=== PATIENT | male | born 1965 | race Caucasian/White ===

== ENCOUNTER 2016-10-04 14:15 | Emergency (ER) | payer MEDICAID ==
--- NOTE | 2016-10-04 14:27 | EDPHY ---
HPI/HX/ROS/PE/MDM Narrative: CHIEF COMPLAINT: Suicidal ideation. HPI: The patient is a 51-year-old male who comes from the [facility] with suicidal ideation. The patient was placed on an M1 hold. He has a history of Del Norte' s and states his pain is so severe he just can't take it any longer. Patient is noncompliant with Del Norte's medication. The patient last drank alcohol last night. REVIEW OF SYSTEMS: Aside from elements discussed in the HPI, a comprehensive 10-point review of systems was reviewed and is negative. PMH: Moose's disease. SOCIAL HISTORY: Homeless. Heavy alcohol use. PHYSICAL EXAM: General: Patient is alert, in no acute distress. ENT: Eyes are normal to inspection. ENT inspection normal. Neck: Normal inspection. Full range of motion. Respiratory: No respiratory distress. Breath sounds normal bilaterally. Cardiovascular: Regular rate and rhythm. Strong peripheral pulses. Abdomen: The abdomen is nontender to palpation. There are no peritoneal signs. There are normal bowel sounds. Back: Normal to inspection. No tenderness to palpation. Skin: Normal color. No rash. Warm and dry. Extremities: Normal appearance. Full range of motion. Neuro: Oriented x3. Abnormal resting movements consistent with Del Norte's. ( Jayden Ray) ED Course: 2205 care assumed by me from Dr. Roberson pending re-evaluation in the morning. [address] Ray pending evaluation and disposition. no issues during my care this patient overnight. (Aram Zee) The patient will be signed out to Dr. Roberson at shift change pending mental health evaluation. (Jayden Ray) 184: Patient has been seen evaluated by mental health. Patient stating that he suicidal due to pain and trouble with his chronic hunting movement. States he would like to sleep and have pain control. States that his pain is controlled and he can't sleep he may not be suicidal. Plan will be to re- evaluate in morning. (Lio Roberson) MDM: This patient has been evaluated by mental health who feels the patient is not actively suicidal, and that his feeling of sucidality were related to his chronic disease and homelessness. They are comfortable with hold being dropped if patient can be placed somewhere. I worked with our family independence case manager who spoke with Yamilka Brito. However, they have apparently already declined to accept this patient. I felt like a reasonable plan was to drop the M1 hold and discharge, but EPS now tells me that they don't feel comfortable dropping the hold given the patient's impulsiveness and history of Del Norte's. Business Executive suggested admission to the hospital for placement, however there is no acute medical issue and with no likely accepting facility, I do not think this is a good idea. I have canceled my order to drop the hold, and EPS will continue to work to try and find placement for this patient. Signed out to Dr. Joy at 1530. (Jayden Ray) Care assumed from Dr. aRy at 3:30 p.m. with plan for psychiatric evaluation for placement, currently on a mental health hold for suicidality. Temperature 36.7degrees at 9:30 a.m. today. Signed out to Dr. Roberson at 2200 with mental health hold still valid, psychiatric placement still pending. (Daniele Joy) 0700: Patient signed over to Dr. Maria at 7AM shift-Change. On M1 hold suicidal ideation. Underlying Moose's (Lio Roberson) I assumed care of the patient at 7 o'clock. Patient was medicated at 8:00 a.m. with hydrocodone and Ativan. Patient was evaluated again by mental health. Please see their notes. At 2 o' clock in the afternoon I was advised by mental health that to their attending does not feel the patient currently meets criteria for an M1 hold. Patient himself states that he just wants to have a referral to a neurologist. He is currently homeless. He denies ongoing suicidality. He reports that he wants to be discharged with pain medications and will make a follow-up appointment at Neurology. Case management has previously been involved. Due to the patient's prior history of violent behavior and alcohol intoxication, he is not able to be admitted to [place] [facility] nor to return back to [facility]. Patient was discharged. 72 hour mental health hold was vacated by Dr. Mcmahan. Referrals to Neurology as well as [facility] where provided. nurse case manager discussed the importance of follow-up again with the patient. (Eli Maria) - Data Points Laboratory Results: Laboratory Results 10/04/16 15:05 10/04/16 15:05 Medications Given: Discontinued Medications Hydrocodone Bitart/Acetaminophen ([place] 10/325) 1 tab PO EDNOW ONE Stop: 10/04/16 18:47 Last Admin: 10/04/16 19:38 Dose: 1 tab Hydrocodone Bitart/Acetaminophen ([place] 5/325) 1 tab PO EDNOW ONE Stop: 10/05/16 05:31 Last Admin: 10/05/16 05:33 Dose: 1 tab Hydrocodone Bitart/Acetaminophen ([place] 5/325) 1 tab PO EDNOW ONE Stop: 10/05/16 12:46 Last Admin: 10/05/16 12:51 Dose: 1 tab Hydrocodone Bitart/Acetaminophen ([place] 5/325) 1 tab PO EDNOW ONE Stop: 10/05/16 19:48 Last Admin: 10/05/16 19:51 Dose: 1 tab Hydrocodone Bitart/Acetaminophen ([place] 5/325) 1 tab PO EDNOW ONE Stop: 10/06/16 07:59 Last Admin: 10/06/16 08:04 Dose: 1 tab Lorazepam (Ativan) 1 mg PO ONCE ONE Stop: 10/04/16 16:47 Last Admin: 10/04/16 16:51 Dose: 1 mg Lorazepam (Ativan) 1 mg PO ONCE ONE Stop: 10/04/16 18:47 Last Admin: 10/04/16 19:02 Dose: 1 mg Lorazepam (Ativan) 1 mg PO EDNOW ONE Stop: 10/05/16 05:30 Last Admin: 10/05/16 05:32 Dose: 1 mg Lorazepam (Ativan) 1 mg PO EDNOW ONE Stop: 10/05/16 12:46 Last Admin: 10/05/16 12:50 Dose: 1 mg Lorazepam (Ativan) 1 mg PO EDNOW ONE Stop: 10/06/16 08:00 Last Admin: 10/06/16 08:04 Dose: 1 mg Trazodone HCl (Trazodone) 50 mg PO EDNOW ONE Stop: 10/04/16 23:57 Last Admin: 10/05/16 00:00 Dose: 50 mg Trazodone HCl (Trazodone) 50 mg PO EDNOW ONE Stop: 10/05/16 19:49 Last Admin: 10/05/16 19:51 Dose: 50 mg General Time Seen by Provider: 10/04/16 14:16 Initial Vital Signs: Initial Vital Signs Heart Rate 64 10/04/16 14:25 Respiratory Rate 18 10/04/16 14:25 Blood Pressure 167/102 H 10/04/16 14:25 O2 Sat (%) 94 10/04/16 14:25 O2 Delivery Mode Room Air Allergies/Adverse Reactions: Penicillins Allergy (Verified 10/04/16 14:33) Home Medications: Medication Instructions Recorded traZODone [traZODONE 50MG (*)] 25 - 50 mg PO HS PRN 10/05/16 Hydrocodone/APAP 5/325 [[place] 1 tab PO Q6H PRN #10 tab 10/06/16 5/325 (RX)] traZODone HCL [Trazodone HCl] 50 mg PO BID PRN #10 tablet 10/06/16 Departure - Departure Disposition: Home, Routine, Self-Care Clinical Impression: Huntingtons chorea, Suicidal ideation Condition: Fair Instructions: Suicide Prevention for Older Adults (ED), Tremors (ED) Additional Instructions: You have been given referral to Dr. Lopez at Neurology. Please call the neurology office on Saturday to make an appointment with Dr Lopez or with one of his partners. Please be sure they understand that this is an emergency department referral. You been given the number to [facility]. Please call them on Saturday to establish care with a primary care physician. Please let them know this is an emergency department follow-up visit. You given been given the number to [facility]. If you are feeling suicidal, depressed, anxious, or have other mental health concerns, you may follow up with them. You may return to the emergency department as needed. Referrals: Patient,NotPresent [Unknown] - As per Instructions Aram Lopez DO [Medical Doctor] - As per Instructions [facility],. [Clinic] - As per Instructions Prescriptions: Hydrocodone/APAP 5/325 [[place] 5/325 (RX)] 1 tab PO Q6H PRN #10 tab PRN Reason: Pain traZODone HCL [Trazodone HCl] 50 mg PO BID PRN #10 tablet PRN Reason: Anxiety Report Scribed for: Jayden Ray Report Scribed by: Lisa Arizmendi Date of Report: 10/04/16 Time of Report: 14:27 Physician Review and Approval Statement: Portions of this note were transcribed by a biomedical engineering director. I personally performed the history, physical exam, and medical decision-making; and confirmed the accuracy of the information in the transcribed note.
[2016-10-04 15:11] LABS: % IMMATURE GRANULYOCYTES 0.4 % (0.0-1.1); ABSOLUTE IMMATURE GRANULOCYTES 0.04 10^3/uL (0.00-0.10); ADD DIFF? NO; ADD MORPH? NO; ADD SCAN? NO; ATYPICAL LYMPHOCYTE FLAG 10 (0-99); FRAGMENT RBC FLAG 0 (0-99); HEMATOCRIT 43.8 % (40.0-51.0); HEMOGLOBIN 15.5 g/dL (13.7-17.5); LEFT SHIFT FLG 0 (0-99); LIPEMIA HEMOLYSIS FLAG 90 (0-99); MEAN CELL HEMOGLOBIN 31.1 pg (27.9-34.1); MEAN CELL HEMOGLOBIN CONCENTR. 35.4 g/dL (32.4-36.7); MEAN PLATELET VOLUME 8.9 fL (8.7-11.7); PLATELET CLUMPS FLAG 0 (0-99); PLATELET COUNT 285 10^3/uL (150-400); RED BLOOD CELL COUNT 4.98 10^6/uL (4.40-6.38); RED CELL DISTRIBUTION WIDTH 13.1 % (11.5-15.2)
[2016-10-04 16:21] LABS: ANION GAP 16 mEq/L (8-16); CALCIUM 9.7 mg/dL (8.5-10.4); CARBON DIOXIDE 19 mEq/l (22-31); CHLORIDE 105 mEq/L (97-110); CREATININE 0.7 mg/dL (0.7-1.3); GLOMERULAR FILTRATION RATE > 60; GLUCOSE 90 mg/dL (70-100); POTASSIUM 4.2 mEq/L (3.5-5.2); SODIUM 140 mEq/L (134-144)
[2016-10-04 16:39] LABS: ETHANOL SERUM < 10 mg/dL (0-10)
[2016-10-04] MEDS ORDERED: LORazepam 1 MG TAB PO ONE ×2 (16:46→18:46)
[2016-10-04] MEDS ORDERED: LORazepam 1 MG TAB ONE (16:57)
[2016-10-04] MEDS ORDERED: HYDROCODONE/APAP 10/325 TAB PO ONE (18:46)
[2016-10-04] MEDS ORDERED: traZODone 50 MG TAB PO ONE (23:56)
[2016-10-05] MEDS ORDERED: LORazepam 1 MG TAB PO ONE ×2 (05:29→12:45)
[2016-10-05] MEDS ORDERED: HYDROCODONE/APAP 5/325 TAB PO ONE ×3 (05:30→19:47)
[2016-10-05] MEDS ORDERED: traZODone 50 MG TAB PO ONE (19:48)
[2016-10-06 07:54] VITALS: RESP 16; TEMP 97.5
[2016-10-06] MEDS ORDERED: HYDROCODONE/APAP 5/325 TAB PO ONE (07:58)
[2016-10-06] MEDS ORDERED: LORazepam 1 MG TAB PO ONE (07:59)
[2016-10-06 14:59] VITALS: BP 148/87; PULSE 78; O2SAT 98
== END 2016-10-06 14:58 | disposition home or self-care (01) ==
LOC: EDUNIT# → UNDOADMIN 10-05 15:32
DX: R45.851 Suicidal ideations (principal); G10 Huntington's disease
CPT/HCPCS: 80305; G0480

== ENCOUNTER 2016-12-04 20:03 | Emergency (ER) | payer MEDICAID ==
[2016-12-04 20:42] LABS: % IMMATURE GRANULYOCYTES 0.3 % (0.0-1.1); ABSOLUTE IMMATURE GRANULOCYTES 0.03 10^3/uL (0.00-0.10); ADD DIFF? NO; ADD MORPH? NO; ADD SCAN? NO; ATYPICAL LYMPHOCYTE FLAG 0 (0-99); FRAGMENT RBC FLAG 0 (0-99); HEMATOCRIT 47.6 % (40.0-51.0); HEMOGLOBIN 16.7 g/dL (13.7-17.5); LEFT SHIFT FLG 0 (0-99); LIPEMIA HEMOLYSIS FLAG 90 (0-99); MEAN CELL HEMOGLOBIN 32.2 pg (27.9-34.1); MEAN CELL HEMOGLOBIN CONCENTR. 35.1 g/dL (32.4-36.7); MEAN CELL VOLUME 91.7 fL (81.5-99.8); MEAN PLATELET VOLUME 9.6 fL (8.7-11.7); PLATELET CLUMPS FLAG 0 (0-99); PLATELET COUNT 285 10^3/uL (150-400); RED BLOOD CELL COUNT 5.19 10^6/uL (4.40-6.38); RED CELL DISTRIBUTION WIDTH 12.5 % (11.5-15.2)
[2016-12-04 20:44] LABS: ANION GAP 17 mEq/L (8-16); CALCIUM 9.6 mg/dL (8.5-10.4); CARBON DIOXIDE 19 mEq/l (22-31); CHLORIDE 107 mEq/L (97-110); CREATININE 0.9 mg/dL (0.7-1.3); GLOMERULAR FILTRATION RATE > 60; GLUCOSE 83 mg/dL (70-100); POTASSIUM 4.5 mEq/L (3.5-5.2); SODIUM 143 mEq/L (134-144)
[2016-12-04 20:55] LABS: ETHANOL SERUM 338 mg/dL (0-10)
--- NOTE | 2016-12-04 20:56 | EDPHY ---
H & P Time Seen by Provider: 12/04/16 20:32 HPI/ROS: CHIEF COMPLAINT: Depression, alcoholism HISTORY OF PRESENT ILLNESS: 51-year-old male presents to the emergency department feeling depressed and suicidal. Patient has a history of Towns' s chorea and was found today trying to jump in front of a bus in attempt to kill himself. Patient continues to feel suicidal. He states "next time I will jump in front of a train ". He drinks alcohol and admits to drinking half a pt of alcohol today. He denies any other substance abuse. Denies homicidal ideation. The patient states that his dad also had Towns's chorea and today is his 5 year anniversary of his . Currently has no physical complaints. He denies chest pain or difficulty breathing. Denies headache. REVIEW OF SYSTEMS: Constitutional: No fever, no chills. Eyes: No double or blurry vision. ENT: No sore throat. Respiratory: No cough, no shortness of breath. Cardiac: No chest pain. Gastrointestinal: No abdominal pain, vomiting or diarrhea. Genitourinary: No dysuria. Musculoskeletal: No neck or back pain. Skin: No rashes. Neurological: No headache. Past Medical/Surgical History: Towns's chorea, Alcoholism Social History: Single Smoking Status: Current every day smoker Physical Exam: General Appearance: Alert, no distress. Smells strongly of alcohol. No visible signs of trauma to his head Eyes: Pupils equal and round. Extraocular motions are all intact. ENT: Mouth: Mucous membranes moist. Poor dentition noted. Respiratory: No wheezing, rhonchi, or rales, lungs are clear to auscultation. Cardiovascular: Regular rate and rhythm. Gastrointestinal: Abdomen is soft and nontender, no masses, no rebound or guarding, bowel sounds normal. Neurological: Alert and oriented x 3, cranial nerves II through XII grossly intact Skin: Warm and dry, no rashes. Musculoskeletal: Nontender to palpate along the cervical, thoracic or lumbar spine. Neck is supple. Extremities: Full range of motion and no peripheral edema. Psychiatric: Patient is oriented X 3, there is no agitation. Constitutional: Initial Vital Signs Temperature (C) 36.6 C 12/04/16 20:09 Heart Rate 100 12/04/16 20:09 Respiratory Rate 18 12/04/16 20:09 Blood Pressure 159/80 H 12/04/16 20:09 O2 Sat (%) 92 12/04/16 20:09 O2 Delivery Mode Room Air Allergies/Adverse Reactions: Penicillins Allergy (Verified 10/04/16 14:33) Home Medications: Medication Instructions Recorded traZODone [traZODONE 50MG (*)] 25 - 50 mg PO HS PRN 10/05/16 Hydrocodone/APAP 5/325 [[place] 1 tab PO Q6H PRN #10 tab 10/06/16 5/325 (RX)] traZODone HCL [Trazodone HCl] 50 mg PO BID PRN #10 tablet 10/06/16 Medical Decision Making ED Course/Re-evaluation: The patient is on an M1 hold. He is intoxicated. When he is sober, he will be evaluated by mental health. Differential Diagnosis: Depression including functional and major depression, situational depression, medication side effect, drugs and alcohol abuse. Care Turn Over: Care will be turned over to Dr. Lio Roberson for disposition and plan. - Data Points Laboratory Results: Laboratory Results 12/04/16 20:20 12/04/16 20:20 12/04/16 12/04/16 20:20 20:20 WBC 9.44 10^3/uL 10^3/uL (3.80-9.50) RBC 5.19 10^6/uL 10^6/uL (4.40-6.38) Hgb 16.7 g/dL g/dL (13.7-17.5) Hct 47.6 % % (40.0-51.0) MCV 91.7 fL fL (81.5-99.8) MCH 32.2 pg pg (27.9-34.1) MCHC 35.1 g/dL g/dL (32.4-36.7) RDW 12.5 % % (11.5-15.2) Plt Count 285 10^3/uL 10^3/uL (150-400) MPV 9.6 fL fL (8.7-11.7) Neut % (Auto) 69.6 % % (39.3-74.2) Lymph % (Auto) 23.9 % % (15.0-45.0) [place] % (Auto) 5.4 % % (4.5-13.0) Eos % (Auto) 0.2 % L % (0.6-7.6) Baso % (Auto) 0.6 % % (0.3-1.7) Nucleat RBC Rel Count 0.0 % % (0.0-0.2) Absolute Neuts (auto) 6.56 10^3/uL H 10^3/uL (1.70-6.50) Absolute Lymphs (auto) 2.26 10^3/uL 10^3/uL (1.00-3.00) Absolute Monos (auto) 0.51 10^3/uL 10^3/uL (0.30-0.80) Absolute Eos (auto) 0.02 10^3/uL L 10^3/uL (0.03-0.40) Absolute Basos (auto) 0.06 10^3/uL 10^3/uL (0.02-0.10) Absolute Nucleated RBC 0.00 10^3/uL 10^3/uL (0-0.01) Immature Gran % 0.3 % % (0.0-1.1) Immature Gran # 0.03 10^3/uL 10^3/uL (0.00-0.10) Sodium 143 mEq/L mEq/L (134-144) Potassium 4.5 mEq/L mEq/L (3.5-5.2) Chloride 107 mEq/L mEq/L (97-110) Carbon Dioxide 19 mEq/l L mEq/l (22-31) Anion Gap 17 mEq/L H mEq/L (8-16) BUN 12 mg/dL mg/dL (7-23) Creatinine 0.9 mg/dL mg/dL (0.7-1.3) Estimated GFR > 60 Glucose 83 mg/dL mg/dL (70-100) Calcium 9.6 mg/dL mg/dL (8.5-10.4) Ethyl Alcohol 338 mg/dL H mg/dL (0-10) Departure - Departure Clinical Impression: Suicidal ideation Alcohol intoxication Qualifiers: Complication of substance-induced condition: uncomplicated Qualified Code(s): F10.920 - Alcohol use, unspecified with intoxication, uncomplicated Depression Qualifiers: Depression Type: unspecified Qualified Code(s): F32.9 - Major depressive disorder, single episode, unspecified
[2016-12-04] MEDS ORDERED: OLANZapine DISINTEGR 10 MG TAB ONE (22:54)
[2016-12-05] MEDS ORDERED: IBUPROFEN 600 MG TAB PO ONE ×2 (05:09→05:49)
[2016-12-05 16:24] VITALS: BP 135/109; PULSE 69; RESP 18; TEMP 98.2; O2SAT 95
[2016-12-05] MEDS ORDERED: fentaNYL 100 MCG/2 ML INJ IVP ONE (16:24)
[2016-12-05] MEDS ORDERED: ONDANSETRON 4 MG/2 ML VIAL IVP ONE (16:24)
== END 2016-12-05 17:59 ==
DX: R45.851 Suicidal ideations (principal); F10.920 Alcohol use, unspecified with intoxication, uncomplicated; F17.200 Nicotine dependence, unspecified, uncomplicated
CPT/HCPCS: 80305; G0480

== ENCOUNTER 2017-01-01 06:42 | Emergency (ER) | payer MEDICAID ==
[2017-01-01 06:48] VITALS: RESP 18
--- NOTE | 2017-01-01 07:42 | EDPHY ---
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 He presents today complaining of neck pain, bilateral arm and hand weakness, and burning sensation in his hands bilaterally. The burning sensation has been present for the for quite sometimes but is worse today. This morning he was riding the bus and had difficulty getting up off of the bench because he could not use his arms or hands to do so. The pain and burning that he is experiencing is similar to the symptoms that he had prior to his cervical surgery. He states that he has long-standing difficulty walking but that his walking seems to be slightly worse also. He has not fallen. He has not taken anything for pain. He has been seen in this emergency department in the past and has been referred for primary care and for neurologic care but has not arranged any of these appointments. He is homeless. REVIEW OF SYSTEMS: A ten point review of systems was performed and is negative with the exception of the items mentioned in the HPI. He is currently homeless. Both Yamilka Brito and [facility] have refused to admit him in the recent past. Past medical history: Jefferson's chorea Alcohol abuse Tobacco abuse, 1/2 pack per day Past surgical history: Cervical fusion Social history: He is homeless. He continues to smoke cigarettes and is a daily alcohol drinker. General Appearance: Alert. Vital signs reviewed. Blood pressure 150/90. Poor personal hygiene. Eyes: Pupils equal and round, no conjunctival injection, no discharge. Anicteric. ENT, Mouth: Mucous membranes are moist, no oropharyngeal erythema or edema. Neck: No lymphadenopathy, supple. Well-healed surgical scar in the midline posteriorly. No tenderness to palpation of the cervical spine in the midline. Respiratory: Lungs are clear to auscultation; no wheezes, rales, or rhonchi. Cardiovascular: Regular rate and rhythm; no murmur, rub, or gallop. Gastrointestinal: Abdomen is soft and nontender, no masses or organomegaly, bowel sounds normal. Skin: Warm and dry, no rashes on exposed skin, normal color. Back: Nontender to palpation over the thoracolumbar spine. Neurological: Alert and oriented. Choreiform movements of all 4 extremities while at rest. Upper extremity strength is symmetric and is 4+ over 5 with testing of major motor groups. Sensory exam of the upper extremities is normal although he complains of dysesthesia. Psychiatric: Normal affect. - Personal History Current Tetanus/Diphtheria Vaccine: Yes Current Tetanus Diphtheria and Acellular Pertussis (TDAP): Yes - Medical/Surgical History Hx Asthma: No Hx Chronic Respiratory Disease: No Hx Diabetes: No Hx Cardiac Disease: No Hx Renal Disease: No Hx Cirrhosis: No Hx Alcoholism: Yes Hx HIV/AIDS: No Hx Splenectomy or Spleen Trauma: No Other PMH: huntingtons soledad - Social History Smoking Status: Current every day smoker Constitutional: Initial Vital Signs Temperature (C) 36.8 C 01/01/17 06:45 Heart Rate 72 01/01/17 06:45 Respiratory Rate 18 01/01/17 06:45 Blood Pressure 150/90 H 01/01/17 06:45 O2 Sat (%) 96 01/01/17 06:45 O2 Delivery Mode Room Air Allergies/Adverse Reactions: Penicillins Allergy (Verified 12/05/16 10:31) Home Medications: Medication Instructions Recorded traZODone [traZODONE 50MG (*)] 25 - 50 mg PO HS PRN 10/05/16 traZODone HCL [Trazodone HCl] 50 mg PO BID PRN #10 tablet 10/06/16 Medical Decision Making ED Course/Re-evaluation: Patient with Moose's chorea who presents complaining of bilateral hand dysesthesia and worsening upper extremity weakness. He has a history of cervical fusion. A neck x-ray was obtained to assess his hardware, which appears intact. Do not suspect an acute spinal cord compression or radicular compression. I do not think that he has an acute change today. He tells me that he might be getting slightly worse. He has not pursued follow-up, either with his primary care providers [facility] or with a neurologist. I strongly encouraged him to do so. He was given Tylenol and ibuprofen in the emergency department with minimal relief. I do not feel that he meets needs further emergency department evaluation. Case management interviewed him and an appointment was made at the [facility]. In the past he has been resistant to any efforts to alter his homelessness. He is noted to be hypertensive during his stay in the emergency department. He is not compliant with medications that have been school prescribed in the past. He is encouraged to arrange care with his PCP. He is encouraged to have his blood pressure rechecked. Differential Diagnosis: I considered a differential diagnosis that includes but is not limited to musculoskeletal neck pain/cervical sprain, failure of hardware, spinal cord compression, cervical radiculopathy, central cord syndrome, sequelae of alcoholism . - Data Points Medications Given: Discontinued Medications Acetaminophen (Tylenol) 1,000 mg PO EDNOW ONE Stop: 01/01/17 09:16 Last Admin: 01/01/17 09:48 Dose: 1,000 mg Ibuprofen (Motrin) 600 mg PO EDNOW ONE Stop: 01/01/17 07:46 Last Admin: 01/01/17 08:10 Dose: 600 mg Departure - Departure Disposition: Home, Routine, Self-Care Clinical Impression: Neck pain Condition: Good Instructions: Neck Pain (ED) Additional Instructions: You have a follow-up appointment with [facility] at the [facility] at [address] ([phone]). Please call them if you need to reschedule the appointment. You are strongly encouraged to go though the [facility] screening for homeless resources and services. You have been provided information, including the location and times that the CE screenings are offered. We think you would greatly benefit from their ability to connect you with resources such as access to benefits, housing needs, and other case management services. I am referring you to Dr. Fraser, neurologist. Please arrange an appointment through his office. There might be a weeding time before you are able to see him, so this sooner you contact the office the better. I am also recommending that you follow up with primary care through [facility]. They have open office hours available for the homeless which means that you do not need to have an appointment at those times. Randi giving you a listing of those times. You should take Tylenol 650 mg every 6 hours for pain. You can also take an occasional ibuprofen--no more than 400 mg 3 times daily. Referrals: [facility] [Clinic] - As per Instructions [facility],. [Clinic] - As per Instructions Hiren Marcano DO [Doctor of Osteopathy] - As per Instructions
[2017-01-01] MEDS ORDERED: IBUPROFEN 600 MG TAB PO ONE (07:45)
[2017-01-01 08:15] VITALS: O2SAT 93
[2017-01-01] MEDS ORDERED: ACETAMINOPHEN 500 MG TAB PO ONE (09:15)
--- NOTE | 2017-01-01 11:16 | ASMTCMCOM ---
CM Note CM Note Notes: Spoke with patient about homelessness, his struggle with alcohol and having Bruni's. Patient states he moved back to [place] this past summer after his mother . He had recently been living in [place]. Patient states he has family in [place] but ""i'll never go back there." Pt has no friends or family in [place]. Patient refused to stay at the shelters ([facility] or [facility]) because "it's too crazy, I can't sleep." Patient reports he's been sleeping in a bus stop near [facility]. When asked if he would be willing to complete the Coordinated Entry process he said "maybe, but I am not staying at the shelters." Appointment made for patient at the [facility] for next 01/09/17 at 11am. Pt provided bus pass. Date Signed: 01/01/2017 11:15 AM Electronically Signed By:Adenike Campbell RN
[2017-01-01 11:20] VITALS: BP 142/92; PULSE 80; TEMP 98.1
--- NOTE | 2017-01-01 12:17 | ASDISCHSUM ---
Discharge Information Plan Status:Homeless/Penitentiary Medically Cleared to Leave: Discharge Date:01/01/2017 11:36 AM CM D/C Disposition:Streets (Homeless) ADT D/C Disposition:Home, Routine, Self-Care Projected Discharge Date:01/01/2017 11:36 AM Transportation at D/C:Bus Ticket Discharge Delay Reason: Follow-Up Date:01/01/2017 11:36 AM Discharge Slot: Final Diagnosis: Placement Information Patient Contact Information Contact Name:THERESA Relationship: Address:[address] [place] [address] City:[facility] Phone: State/Zip Code:[place] [address] Email: Financial Information Financial Class: Primary Plan Desc:MEDICAID HEALTH FIRST MATERIAL LOADER Primary Plan Number:[id number] Secondary Plan Desc: Secondary Plan Number: Assessment Information LACE LACE Acuity / Level of Care Answers: No. Emergency dept visits in Answers: 3 last 6 months Score: 3 Date Signed: 01/01/2017 11:00 AM Electronically Signed By:Adenike Campbell RN [facility] Progress Note CM Note CM Note Notes: Spoke with patient about homelessness, his struggle with alcohol and having Moose's. Patient states he moved back to [place] this past summer after his mother . He had recently been living in [place]. Patient states he has family in [place] but ""i'll never go back there." Pt has no friends or family in [place]. Patient refused to stay at the shelters ([facility] or [facility]) because "it's too crazy, I can't sleep." Patient reports he's been sleeping in a bus stop near [facility]. When asked if he would be willing to complete the Coordinated Entry process he said "maybe, but I am not staying at the shelters." Appointment made for patient at the [facility] for next 01/09/17 at 11am. Pt provided bus pass. Date Signed: 01/01/2017 11:15 AM Electronically Signed By:Adenike Campbell RN Intervention Information
== END 2017-01-01 11:36 | disposition home or self-care (01) ==
LOC: EDUNIT#
DX: M54.2 Cervicalgia (principal); F17.200 Nicotine dependence, unspecified, uncomplicated

== ENCOUNTER 2017-01-26 02:14 | Emergency (ER) | payer MEDICAID ==
--- NOTE | 2017-01-26 02:24 | EDPHY ---
H & P HPI/ROS: HPI CHIEF COMPLAINT: Bilateral foot pain and blisters chronic x3 weeks. HISTORY OF PRESENT ILLNESS: This patient is a 51-year-old male, homeless, alcoholic, smokes tobacco additionally has schizophrenia, he presents emergency room bilateral feet pain. Patient states that for the past 3 weeks he has been noticing increasing pain in his feet and blisters. He states the blisters on his bottom of feet have been there for approximately 3 weeks. He denies any fever. He denies any other complaints denies trauma. He decided come the emergency room by ambulance as he went to be evaluated for bilateral feet pain blisters. Present for 3 weeks. 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 Past Medical History: Schizophrenia, alcohol abuse, daily alcohol use, tobacco use Past Surgical History: No recent surgery Social History: Daily alcohol use, homeless. Family History: Noncontributory ROS REVIEW OF SYSTEMS: A comprehensive 10 point review of systems is otherwise negative aside from elements mentioned in the history of present illness. Exam Constitutional triage nursing summary reviewed, vital signs reviewed, awake/ alert. Eyes normal conjunctivae and sclera, EOMI, PERRLA. HENT normal inspection, atraumatic, moist mucus membranes, no epistaxis, neck supple/ no meningismus, no raccoon eyes. Respiratory clear to auscultation bilaterally, normal breath sounds, no respiratory distress, no wheezing. Cardiovascular rate normal, regular rhythm, no murmur, no edema, distal pulses normal. Gastrointestinal soft, non-tender, no rebound, no guarding, normal bowel sounds, no distension, no pulsatile mass. Genitourinary no CVA tenderness. Musculoskeletal no midline vertebral tenderness, full range of motion, no calf swelling, no tenderness of extremities, no meningismus, good pulses, neurovascularly intact. Skin bilateral lower extremity: Both feet: Poor hygiene. Dirt under nails. Both feet are dirty and caked in mud, there are multiple areas of intact blisters, mild erythema but no significant warmth. No crepitus. No significant pain with palpation. Appears to be chronic. Good distal pulses. Good cap refill. Neurologic awake, alert and oriented x 3, AAOx3, moves all 4 extremities equally, motor intact, sensory intact, CN II-XII intact, normal cerebellar, normal vision, normal speech. Psychiatric normal mood/affect. Heme/Lymph/Immune no lymphadenopathy. Differential Diagnosis: Includes but is not limited to in a particular order bilateral feet cellulitis, bilateral feet blistering, chronic wounds to his feet , frostbite chronic, friction blisters, gangrene, trench foot Medical Decision Making: Plan for this patient allow him to washing clean his feet here in the emergency room to get the dirt mud off them. I will not debriding the is blisters as they are intact and not causing any significant pain. There is mild erythema to both put place him on Keflex. Additionally I will refer him to wound care. He understands to take it easy on his feet. Use warm clean socks if possible. I do recommend that he does not keep putting his feet in his boots for long period time let them dry out an air out. There is no evidence of gas or crepitus on exam. He is not toxic- appearing. He has no fever. Source: Patient, EMS - Medical/Surgical History Hx Asthma: No Hx Chronic Respiratory Disease: No Hx Diabetes: No Hx Cardiac Disease: No Hx Renal Disease: No Hx Cirrhosis: No Hx Alcoholism: Yes Hx HIV/AIDS: No Hx Splenectomy or Spleen Trauma: No Other PMH: huntingtons soledad - Social History Smoking Status: Current every day smoker Allergies/Adverse Reactions: Penicillins Allergy (Verified 12/05/16 10:31) Home Medications: Medication Instructions Recorded traZODone [traZODONE 50MG (*)] 25 - 50 mg PO HS PRN 10/05/16 traZODone HCL [Trazodone HCl] 50 mg PO BID PRN #10 tablet 10/06/16 Cephalexin [Keflex] 500 mg PO Q6H #28 cap 01/26/17 Departure - Departure Disposition: Home, Routine, Self-Care Clinical Impression: Blister (nonthermal), right foot, initial encounter Friction blisters of sole of left foot Qualifiers: Encounter type: initial encounter Qualified Code(s): S90.822A - Blister ( nonthermal), left foot, initial encounter Condition: Good Instructions: Cellulitis (ED) Additional Instructions: 1. Make sure to keep her feet clean. 2. Use warm clean socks. 3. Take antibiotics as prescribed. 4. Follow-up with wound care. 5. Return to the emergency room if there is worsening symptoms questions or concerns. 6. Do not keep her feet in her boot for prolonged period of time this was causing the blisters. Referrals: NONE *PRIMARY CARE P,. [Primary Care Provider] - As per Instructions [facility] [Clinic] - As per Instructions Prescriptions: Cephalexin [Keflex] 500 mg PO Q6H #28 cap
[2017-01-26] MEDS ORDERED: CEPHALEXIN 500 MG CAP PO ONE (02:27)
[2017-01-26] MEDS ORDERED: CEPHALEXIN 500MG PREPACK#4 BTL TAKEHOME ONE (02:27)
[2017-01-26] MEDS ORDERED: ACETAMINOPHEN 500 MG TAB PO ONE (02:29)
[2017-01-26 02:36] VITALS: BP 154/74; PULSE 74; RESP 18; TEMP 97.9; O2SAT 96
== END 2017-01-26 03:13 | disposition home or self-care (01) ==
LOC: EDUNIT#
DX: R23.8 Other skin changes (principal); F17.200 Nicotine dependence, unspecified, uncomplicated

== ENCOUNTER 2017-02-09 03:16 | Emergency (ER) | payer MEDICAID ==
[2017-02-09 03:25] VITALS: RESP 16; TEMP 98.1
[2017-02-09] MEDS ORDERED: ONDANSETRON 4 MG/2 ML VIAL ONE (03:42)
--- NOTE | 2017-02-09 03:49 | CPEKG ---
Heart Rate: 52 RR Interval: 1154 P-R Interval: 164 QRSD Interval: 100 QT Interval: 432 QTC Interval: 402 P Long Eddy: 69 QRS Long Eddy: 72 T Wave Long Eddy: 61 EKG Severity - NORMAL ECG - EKG Impression: SINUS RHYTHM Electronically Signed By: Jessica Mcgarry 09-Feb-2017 06:00:53
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
[2017-02-09 05:38] VITALS: BP 133/83; PULSE 63; O2SAT 93
== END 2017-02-09 06:00 | disposition home or self-care (01) ==
LOC: EDUNIT#
DX: R07.9 Chest pain, unspecified (principal); G89.29 Other chronic pain; T69.9XXA Effect of reduced temperature, unspecified, initial encounter; F17.200 Nicotine dependence, unspecified, uncomplicated; I10 Essential (primary) hypertension; Z59.0 Homelessness; X31.XXXA Exposure to excessive natural cold, initial encounter
CPT/HCPCS: J2405

== ENCOUNTER 2017-04-11 02:42 | Emergency (ER) | payer MEDICAID ==
--- NOTE | 2017-04-11 05:17 | EDPHY ---
H & P Stated Complaint: generalized skin growth and irritation Source: Patient Exam Limitations: No limitations - Personal History Current Tetanus/Diphtheria Vaccine: Yes Current Tetanus Diphtheria and Acellular Pertussis (TDAP): Yes - Medical/Surgical History Hx Asthma: No Hx Chronic Respiratory Disease: No Hx Diabetes: No Hx Cardiac Disease: No Hx Renal Disease: No Hx Cirrhosis: No Hx Alcoholism: Yes Hx HIV/AIDS: No Hx Splenectomy or Spleen Trauma: No Other PMH: huntingtons soledad - Social History Smoking Status: Current every day smoker Time Seen by Provider: 04/11/17 02:45 HPI/ROS: HPI The patient presents with painful rash of his abdomen, elbows, legs which has been present for several years. He feels that is terribly uncomfortable and difficult to live with. He believes the rash is caused by parasites. He says he saw In [place] for this and was not diagnosed with psoriasis. He is not on any medication for it. He does not have any fevers or chills. He is homeless. REVIEW OF SYSTEMS Constitutional: No fever, no chills. Eyes: No discharge. ENT: No sore throat. Cardiovascular: No chest pain, no palpitations. Respiratory: No cough, no shortness of breath. Gastrointestinal: No abdominal pain, no vomiting. Genitourinary: No hematuria. Musculoskeletal: No back pain. Skin: No rashes. Neurological: No headache. PMHx: [place] Soc Hx: Homelessness, alcohol abuse PHYSICAL General Appearance: Alert, no distress Eyes: Pupils equal and round no pallor or injection ENT, Mouth: Mucous membranes moist Respiratory: There are no retractions, lungs are clear to auscultation Cardiovascular: Regular rate and rhythm Gastrointestinal: Abdomen is soft and non-tender, no masses, bowel sounds normal Neurological: A&O, moves all extremities Skin: Warm and dry, psoriatic plaques of his abdomen and upper extremities with no surrounding erythema, warmth, drainage Musculoskeletal: Neck is supple non tender Extremities: symmetrical, full range of motion Psychiatric: Patient is oriented X 3, there is no agitation (Riguzzi,Jessica) Constitutional: Initial Vital Signs Temperature (C) 36.7 C 04/11/17 03:00 Heart Rate 90 04/11/17 03:00 Respiratory Rate 18 04/11/17 03:00 Blood Pressure 140/71 H 04/11/17 03:00 O2 Sat (%) 94 04/11/17 03:00 O2 Delivery Mode Room Air Allergies/Adverse Reactions: Penicillins Allergy (Verified 02/09/17 03:26) Home Medications: Medication Instructions Recorded Cephalexin [Keflex] 500 mg PO Q6H #28 cap 01/26/17 Medical Decision Making Differential Diagnosis: This is a 52-year-old male with homelessness, apparent psoriatic skin disease, history of Moose's, prior suicidal ideation who presents brought in by ambulance because of his rash. This seems to be stable with no sign of superinfection. He says he is not taking any medication for it because he believes his rash is due to a parasite. He has not followed by a local yard jockey though was seen in [place] where he previously lived for the rash. Differential diagnosis includes assisted seeking, worsening psoriasis, less likely cellulitis. The patient was allowed to sleep in the emergency department for several hours. He continued to complain of the rash. He was given ibuprofen. He then became more agitated. He said he was going to jump in front of a train. He said he cannot stand this rash anymore and does not want to live. He is feeling very suicidal. I have reviewed his chart it seems that in November he was here for suicidal ideation and went to crisis stabilization unit. He said that this helped him previously. As I have placed him on an M1 hold as I do not feel he is safe for discharge at this time. At 7:00 a.m., the case will be signed out to the oncoming provider Dr. Crook pending psychiatric evaluation and labs. (Jessica Mcgarry) Other Provider: I assumed care of the patient at 7 o'clock in the morning pending psychiatric disposition. The patient will be turned over to Dr. Joy at 2pm pending psychiatric disposition. (Juan Alberto Crook) Care the patient is assumed at 1:30 p.m. With plan for psychiatric disposition, is medically cleared. 1446: Not currently suicidal, it is the recommendation of the psychiatric chief development officer and the search consultant psychiatrist Dr. Low to lift the mental health hold and discharge the patient. (Daniele Joy) - Data Points Laboratory Results: Laboratory Results 04/11/17 06:40 04/11/17 06:40 02/22/18 02/22/18 02/22/18 06:50 06:40 06:40 WBC 7.93 10^3/uL 10^3/uL (3.80-9.50) RBC 4.41 10^6/uL 10^6/uL (4.40-6.38) Hgb 14.2 g/dL g/dL (13.7-17.5) Hct 41.4 % % (40.0-51.0) MCV 93.9 fL fL (81.5-99.8) MCH 32.2 pg pg (27.9-34.1) MCHC 34.3 g/dL g/dL (32.4-36.7) RDW 13.7 % % (11.5-15.2) Plt Count 239 10^3/uL 10^3/uL (150-400) MPV 8.9 fL fL (8.7-11.7) Neut % (Auto) 73.0 % % (39.3-74.2) Lymph % (Auto) 11.7 % L % (15.0-45.0) Stanley % (Auto) 10.3 % % (4.5-13.0) Eos % (Auto) 3.5 % % (0.6-7.6) Baso % (Auto) 1.0 % % (0.3-1.7) Nucleat RBC Rel Count 0.0 % % (0.0-0.2) Absolute Neuts (auto) 5.78 10^3/uL 10^3/uL (1.70-6.50) Absolute Lymphs (auto) 0.93 10^3/uL L 10^3/uL (1.00-3.00) Absolute Monos (auto) 0.82 10^3/uL H 10^3/uL (0.30-0.80) Absolute Eos (auto) 0.28 10^3/uL 10^3/uL (0.03-0.40) Absolute Basos (auto) 0.08 10^3/uL 10^3/uL (0.02-0.10) Absolute Nucleated RBC 0.00 10^3/uL 10^3/uL (0-0.01) Immature Gran % 0.5 % % (0.0-1.1) Immature Gran # 0.04 10^3/uL 10^3/uL (0.00-0.10) Sodium 141 mEq/L mEq/L (135-145) Potassium 4.6 mEq/L mEq/L (3.5-5.2) Chloride 105 mEq/L mEq/L (97-110) Carbon Dioxide 25 mEq/l mEq/l (22-31) Anion Gap 11 mEq/L mEq/L (8-16) BUN 7 mg/dL mg/dL (7-23) Creatinine 0.6 mg/dL L mg/dL (0.7-1.3) Estimated GFR > 60 Glucose 99 mg/dL mg/dL (70-100) Calcium 9.3 mg/dL mg/dL (8.5-10.4) Total Bilirubin 0.5 mg/dL mg/dL (0.1-1.4) AST 203 IU/L H IU/L (17-59) ALT 136 IU/L H IU/L (21-72) Alkaline Phosphatase 133 IU/L H IU/L (38-126) Total Protein 7.5 g/dL g/dL (6.3-8.2) Albumin 4.1 g/dL g/dL (3.5-5.0) Urine Opiates Screen NEGATIVE (NEGATIVE) Urine Barbiturates NEGATIVE (NEGATIVE) Ur Phencyclidine Scrn NEGATIVE (NEGATIVE) Ur Amphetamine Screen NEGATIVE (NEGATIVE) U Benzodiazepines Scrn NEGATIVE (NEGATIVE) Urine Cocaine Screen NEGATIVE (NEGATIVE) U Marijuana (THC) Screen NEGATIVE (NEGATIVE) Ethyl Alcohol < 10 mg/dL mg/dL (0-10) Medications Given: Discontinued Medications Acetaminophen (Tylenol) 650 mg PO EDNOW ONE Stop: 04/11/17 09:06 Last Admin: 04/11/17 09:26 Dose: 650 mg Sodium Chloride (Ns) 1,000 mls @ 0 mls/hr IV ONCE ONE PRN Reason: Wide Open Stop: 04/11/17 06:55 Last Admin: 04/11/17 06:56 Dose: 1,000 mls Ibuprofen (Motrin) 400 mg PO EDNOW ONE Stop: 04/11/17 06:26 Last Admin: 04/11/17 06:53 Dose: Not Given Ibuprofen (Motrin) 600 mg PO EDNOW ONE Stop: 04/11/17 13:45 Last Admin: 04/11/17 13:46 Dose: 600 mg Ketorolac Tromethamine (Toradol) 15 mg IVP EDNOW ONE Stop: 04/11/17 06:55 Last Admin: 04/11/17 06:55 Dose: 15 mg Departure - Departure Disposition: Home, Routine, Self-Care Clinical Impression: Psoriasis, Severe major depression Condition: Good Instructions: Suicide Prevention for Adults (ED) Referrals: [facility],. [Clinic] - As per Instructions
[2017-04-11] MEDS ORDERED: IBUPROFEN 200 MG TAB PO ONE (06:25)
[2017-04-11 06:51] LABS: PLATELET COUNT 239 10^3/uL (150-400)
[2017-04-11] MEDS ORDERED: KETOROLAC 15 MG/1 ML SDV ONE (06:53)
[2017-04-11] MEDS ORDERED: KETOROLAC 15 MG/1 ML SDV IVP ONE (06:54)
[2017-04-11] MEDS ORDERED: NS 1,000 ML IV ONE (06:54)
[2017-04-11 08:52] VITALS: RESP 16
[2017-04-11] MEDS ORDERED: ACETAMINOPHEN 325 MG TAB PO ONE (09:05)
[2017-04-11] MEDS ORDERED: IBUPROFEN 600 MG TAB PO ONE ×2 (13:43→13:44)
[2017-04-11] MEDS ORDERED: HYDROCORTISONE 1% CREAM TP ONE (16:22)
[2017-04-11] MEDS ORDERED: HYDROCORTISONE 1% CREAM TP PRN (16:23)
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
[2017-04-11 16:54] VITALS: BP 156/90; PULSE 69; TEMP 96.8; O2SAT 92
[2017-04-11] MEDS ORDERED: HYDROCORTISONE 1% CREAM TP SCH (21:00)
== END 2017-04-11 16:53 | disposition home or self-care (01) ==
LOC: EDUNIT#
DX: L40.9 Psoriasis, unspecified (principal); F17.200 Nicotine dependence, unspecified, uncomplicated; F32.9 Major depressive disorder, single episode, unspecified
CPT/HCPCS: 80305; 96374; G0480; J1885

== ENCOUNTER 2017-05-17 18:28 | Emergency (ER) | payer MEDICAID ==
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
[2017-05-17] MEDS ORDERED: CHLORDIAZEPOXIDE 25MG PREPK#6 BTL TAKEHOME ONE (21:36)
[2017-05-17 21:44] VITALS: BP 121/81
== END 2017-05-17 21:46 | disposition home or self-care (01) ==
LOC: EDUNIT#
DX: F10.920 Alcohol use, unspecified with intoxication, uncomplicated (principal); F17.200 Nicotine dependence, unspecified, uncomplicated; W01.0XXA Fall on same level from slipping, tripping and stumbling without subsequent striking against object, initial encounter; Y92.410 Unspecified street and highway as the place of occurrence of the external cause; Y99.8 Other external cause status; Y93.89 Activity, other specified

== ENCOUNTER 2017-06-03 18:14 | Emergency (ER) | payer MEDICAID ==
[2017-06-03] MEDS ORDERED: NS 1,000 ML IV ONE (18:36)
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
[2017-06-03] MEDS ORDERED: IOPAMIDOL (ISOVUE-300) 100 ML BTL ONE (19:39)
[2017-06-04 02:16] VITALS: BP 143/74
== END 2017-06-04 02:15 | disposition home or self-care (01) ==
LOC: EDUNIT#
DX: F10.129 Alcohol abuse with intoxication, unspecified (principal); F17.200 Nicotine dependence, unspecified, uncomplicated; E86.9 Volume depletion, unspecified; Z59.0 Homelessness; Y90.8 Blood alcohol level of 240 mg/100 ml or more
CPT/HCPCS: G0480; Q9967

== ENCOUNTER 2017-06-04 03:20 | Inpatient (IN) | payer MEDICAID, OTHER ==
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
[2017-06-04] MEDS ORDERED: PERMETHRIN 5% 60 GM CREAM TP ONE (03:25)
[2017-06-04] MEDS ORDERED: IOPAMIDOL (ISOVUE-300) 100 ML BTL ONE (03:44)
[2017-06-04 04:12] LABS: PLATELET COUNT 274 10^3/uL (150-400)
[2017-06-04 04:21] LABS: INR 1.04 (0.83-1.16); PROTIME(PATIENT) 13.8 SEC (12.0-15.0)
[2017-06-04] MEDS ORDERED: HYDROmorphONE/DILAUDID 2 MG/ML INJ IVP ONE (04:54)
[2017-06-04] MEDS ORDERED: NS 1,000 ML IV ONE ×2 (04:57)
[2017-06-04] MEDS ORDERED: SKIN ADHESIVE (DERMABOND) 1 EACH TP ONE (05:12)
[2017-06-04] MEDS ORDERED: TDAP ADULT 0.5 ML INJ (BOOSTRIX) IM ONE (05:18)
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
[2017-06-04] MEDS ORDERED: ONDANSETRON 4 MG/2 ML VIAL IVP PRN (05:44)
[2017-06-04] MEDS ORDERED: IBUPROFEN 600 MG TAB PO PRN (05:44)
[2017-06-04] MEDS ORDERED: NALOXONE HCL 0.4 MG/ML INJ IVP PRN (05:44)
[2017-06-04] MEDS ORDERED: OXYCODONE/APAP 5/325 TAB PO PRN (05:49)
[2017-06-04] MEDS ORDERED: KETAMINE 500 MG in D5W 500 ML IV SCH (06:30)
[2017-06-04] MEDS ORDERED: LORazepam 1 MG TAB PO PRN (08:16)
[2017-06-04] MEDS ORDERED: OLANZapine 10 MG/2 ML VIAL IM ONE (08:30)
[2017-06-04] MEDS: LORazepam 2 MG/ML INJ IVP PRN ×6 (09:03→19:12)
[2017-06-04] MEDS: NEOMY SULF/BACITRAC ZN/POLY 30 GM OINTTUBE TP SCH ×2 (09:34→21:06)
[2017-06-04] MEDS: FAMOTIDINE 20 MG/NACL 50 ML IV SCH ×2 (09:34→22:39)
[2017-06-04] MEDS: ENOXAPARIN 40 MG/0.4 ML SYR SC SCH (09:35)
[2017-06-04] MEDS: THIAMINE HCL 500 MG in NS 100 ML IV SCH (10:19)
--- NOTE | 2017-06-04 10:46 | TRAUMAPNT ---
Trauma Tertiary Progress Note New Findings: None Assessment/Plan: 06/04/2017 PAD#0 Assessment: Patient has adamantly stated that he does not plan to stop alcohol. Not interactive enough for Psych eval Plan: Continue alcohol - 1 beer per meal adjust pain management restrain with roll belt Await until more interactive before Psych eval for suicidal ideology repeat Kwell as needed ( tx'd once in ER ) Follow up CXR in AM Subjective: Not interactive Objective: Vital Signs Temp Pulse Resp BP Pulse Ox 36.6 C 82 17 166/79 H 97 06/04/17 10:00 06/04/17 10:00 06/04/17 10:00 06/04/17 10:00 06/04/17 10:00 06/03/17 06/04/17 06/05/17 05:59 05:59 05:59 Intake Total 2000 Output Total 250 Balance 1750 PT 13.8 SEC (12.0-15.0) 06/04/17 04:00 INR 1.04 (0.83-1.16) 06/04/17 04:00 Physical Exam - Physical Exam General Appearance: no apparent distress EENT: other (occipital scalp laceration.) Neck: non-tender, full range of motion, supple Respiratory: chest non-tender, lungs clear, normal breath sounds Cardiac/Chest: regular rate, rhythm Abdomen: normal bowel sounds, non-tender, soft Male Genitalia: deferred Rectal: deferred Back: Normal inspection Skin: other (extensive psoriasis, left forehead abrasion) Neuro/Psych: other (sedated - non interactive)
[2017-06-04] MEDS: LIDOCAINE 4%/MENTHOL 1% PATCH TD SCH (11:08)
[2017-06-04] MEDS ORDERED: BEER 1 EACH EA PO SCH (11:30)
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
[2017-06-04] MEDS: ceFAZolin 2 GM/SWFI 2 GM/20 ML SYR IVP SCH ×2 (13:42→22:38)
[2017-06-04] MEDS ORDERED: ceFAZolin 2 GM in NS 50 ML IV SCH (14:00)
[2017-06-04] MEDS: ACETAMINOPHEN 500 MG TAB PO SCH ×2 (14:04→17:39)
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
--- NOTE | 2017-06-04 14:21 | ASMTLACE ---
ANDRIAE Length of stay for Answers: 3 days current admission Acuity / Level of Answers: Yes Care: Did the patient have an inpatient admission? Comorbidities - select Answers: Other Notes: Suicide Attempt-Head all that apply inj, rib fxs # of Emergency department Answers: 5-8 visits in the last 6 months Social determinants Answers: History of substance abuse (ETOH, street drugs, prescription drugs, etc.) Homelessness (street, detention) History of trauma (PTSD, child abuse, domestic violence, etc.) Mental health diagnosis (anxiety, depression, pers onality disorders, etc.) Lack of community resources and/or lack of social support (no pcp, lives alone, transportation, josi d) Score: 27 Date Signed: 06/04/2017 02:20 PM Electronically Signed By:Elyse Damon LCSW
[2017-06-04] MEDS: KETOROLAC 30 MG/1 ML SDV IVP PRN (15:42)
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
[2017-06-04] MEDS: CYCLOBENZAPRINE 10 MG TAB PO SCH ×2 (16:24→17:40)
[2017-06-04] MEDS: VODKA 50 ML BOTTLE PO PRN ×2 (16:29→19:12)
[2017-06-04] MEDS ORDERED: DEXMEDETOMIDINE HCL 400 MCG in NS 100 ML IV SCH (20:30)
[2017-06-04] MEDS: DEXMEDETOMIDINE IN 0.9 % NACL 100 ML IV SCH ×2 (21:03→23:20)
[2017-06-04] MEDS: PATCH REMOVAL 1 EA PATCH TD SCH (21:06)
[2017-06-05] MEDS: LORazepam 2 MG/ML INJ IVP PRN ×9 (01:32→23:37)
[2017-06-05] MEDS: ACETAMINOPHEN 500 MG TAB PO SCH ×3 (06:33→21:36)
[2017-06-05] MEDS: ceFAZolin 2 GM/SWFI 2 GM/20 ML SYR IVP SCH (06:35)
[2017-06-05] MEDS: CYCLOBENZAPRINE 10 MG TAB PO SCH ×3 (08:23→21:37)
[2017-06-05] MEDS: FAMOTIDINE 20 MG/NACL 50 ML IV SCH (08:24)
[2017-06-05] MEDS: LIDOCAINE 4%/MENTHOL 1% PATCH TD SCH (08:24)
[2017-06-05] MEDS: THIAMINE HCL 500 MG in NS 100 ML IV SCH (08:25)
[2017-06-05] MEDS: ENOXAPARIN 40 MG/0.4 ML SYR SC SCH (08:26)
[2017-06-05] MEDS: NEOMY SULF/BACITRAC ZN/POLY 30 GM OINTTUBE TP SCH ×2 (08:27→19:38)
[2017-06-05] MEDS: KETOROLAC 30 MG/1 ML SDV IVP PRN ×3 (09:24→21:37)
--- NOTE | 2017-06-05 16:05 | ASMTCMCOM ---
CM Note CM Note Notes: Spoke with Ofelia, insurance agents supervisor with [employer]. She states we can give patient small amounts of vodka if needed to prevent withdrawal and they will come to evaluate if patient is otherwise medically clear. They have given us an ETA of 16:00 for eval. Notified [facility] that we had questions about how to manage the ETOH issue and during the conversation we set up an eval time. Patient to get eval and then disposition today. Catherine Jermaine was unavailable to see patient today. CM will follow. Date Signed: 06/05/2017 04:04 PM Electronically Signed By:Renee Telles LCSW
--- NOTE | 2017-06-05 16:22 | ASMTCAGE ---
CAGE Do you feel you ought to Answers: No cut down on your drinking or drug use? Do people annoy you by Answers: No criticizing your drinking or drug use? Do you feel guilty about Answers: No your drinking or drug use? Do you drink or use drugs Answers: Yes first thing in the morning ([employer])? Date Signed: 06/05/2017 04:21 PM Electronically Signed By:Renee Telles LCSW
[2017-06-05] MEDS: VODKA 50 ML BOTTLE PO PRN ×3 (16:47→21:37)
[2017-06-05] MEDS ORDERED: VODKA 50 ML BOTTLE PO ONE (17:00)
[2017-06-05] MEDS: FAMOTIDINE 20 MG TAB PO SCH (19:38)
[2017-06-05] MEDS: PATCH REMOVAL 1 EA PATCH TD SCH (19:38)
--- NOTE | 2017-06-05 20:21 | TRAUMAPN ---
Trauma Progress Note Assessment/Plan: 06/04/2017 PAD#0 Assessment: Patient has adamantly stated that he does not plan to stop alcohol. Not interactive enough for Psych eval Plan: Continue alcohol - 1 beer per meal adjust pain management restrain with roll belt Await until more interactive before Psych eval for suicidal ideology repeat Kwell as needed ( tx'd once in ER ) Follow up CXR in AM 06/05/2017 PAD#2 Assessment: Still minimally communicative. His alcohol supplement has been changed to vodka. Still on M1 hold. Chest/ribs - SATS stable. CXR Stable Scalp wound stable Plan: Continue supportive care Subjective: not coherent Objective: Vital Signs Temp Pulse Resp BP Pulse Ox 37.0 C 88 14 133/70 H 91 L 06/05/17 19:50 06/05/17 19:50 06/05/17 19:50 06/05/17 19:50 06/05/17 19:50 06/04/17 06/05/17 06/06/17 05:59 05:59 05:59 Intake Total 3577 1560 Output Total 1000 900 Balance 2577 660 PT 13.8 SEC (12.0-15.0) 06/04/17 04:00 INR 1.04 (0.83-1.16) 06/04/17 04:00 Physical Exam - Physical Exam General Appearance: obtunded EENT: other (scalp wound- repair intact - no drainage) Neck: non-tender, full range of motion Respiratory: lungs clear, normal breath sounds, other (left chest is tender today) Cardiac/Chest: regular rate, rhythm Abdomen: non-tender, soft, distended, other (hypoactive bowel sounds) Male Genitalia: deferred Rectal: deferred Back: Normal inspection Skin: other (extensive psorasis ) Neuro/Psych: other (not communicative. Gets out of bed inspite of roll belt. Urinates on floor)
[2017-06-06] MEDS: DEXMEDETOMIDINE IN 0.9 % NACL 100 ML IV SCH ×5 (00:50→15:40)
[2017-06-06] MEDS: HALOPERIDOL LACT 5 MG/ML INJ IVP PRN (02:00)
[2017-06-06] MEDS ORDERED: LORazepam 2 MG/ML INJ IVP ONE ×2 (02:30→04:45)
[2017-06-06 06:02] LABS: PLATELET COUNT 170 10^3/uL (150-400)
[2017-06-06] MEDS: ACETAMINOPHEN 500 MG TAB PO SCH ×4 (06:27→21:17)
[2017-06-06] MEDS: LORazepam 2 MG/ML INJ IVP SCH ×3 (06:28→18:13)
[2017-06-06] MEDS: NEOMY SULF/BACITRAC ZN/POLY 30 GM OINTTUBE TP SCH ×2 (09:00→21:18)
[2017-06-06] MEDS: FAMOTIDINE 20 MG TAB PO SCH ×3 (09:00→21:17)
[2017-06-06] MEDS: CYCLOBENZAPRINE 10 MG TAB PO SCH ×3 (09:00→21:18)
[2017-06-06] MEDS: THIAMINE HCL 500 MG in NS 100 ML IV SCH (09:51)
[2017-06-06] MEDS: ENOXAPARIN 40 MG/0.4 ML SYR SC SCH (10:01)
[2017-06-06] MEDS: LIDOCAINE 4%/MENTHOL 1% PATCH TD SCH (10:05)
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
[2017-06-06] MEDS ORDERED: ALTEPLASE 2 MG VIAL IVP PRN (13:52)
[2017-06-06] MEDS: VODKA 50 ML BOTTLE PO PRN (16:07)
[2017-06-06] MEDS ORDERED: LIDOCAINE 1% 300 MG/30 ML SDV ONE (16:07)
[2017-06-06] MEDS: KETOROLAC 30 MG/1 ML SDV IVP PRN (16:18)
--- NOTE | 2017-06-06 19:43 | TRAUMAPN ---
Trauma Progress Note Assessment/Plan: 06/04/2017 PAD#0 Assessment: Patient has adamantly stated that he does not plan to stop alcohol. Not interactive enough for Psych eval Plan: Continue alcohol - 1 beer per meal adjust pain management restrain with roll belt Await until more interactive before Psych eval for suicidal ideology repeat Kwell as needed ( tx'd once in ER ) Follow up CXR in AM 06/05/2017 PAD#2 Assessment: Still minimally communicative. His alcohol supplement has been changed to vodka. Still on M1 hold. Chest/ribs - SATS stable. CXR Stable Scalp wound stable Plan: Continue supportive care 06/06/2017 PAD#3 Assessment: Patient quite rambunctious last night requiring large amount of sedative medications and his communicative skills remained marginal. A follow up CT this AM did not reveal any structural cause. Ammonia is slightly increased. This afternoon he is beginning to make limited sense in conversation. Rib fractures - No significant changes. Need to work on pulmonary toilet to prevent pneumonia. Scalp laceration - clean and dry Plaque psoriasis - no change Plan: F/u CXR F/u ammonia level Continue supportive care Work toward transfer leg pain - c/o thigh pain anteriorly - suspect related to contusions from point of impact. Subjective: I hurt every where Objective: Vital Signs Temp Pulse Resp BP Pulse Ox 36.1 C 56 L 14 111/61 100 06/06/17 16:00 06/06/17 18:00 06/06/17 18:00 06/06/17 18:00 06/06/17 16:00 Laboratory Results 06/06/17 05:13 06/06/17 05:13 06/05/17 06/06/17 06/07/17 05:59 05:59 05:59 Intake Total 3577 1719 708 Output Total 1000 1600 Balance 2577 119 708 PT 13.8 SEC (12.0-15.0) 06/04/17 04:00 INR 1.04 (0.83-1.16) 06/04/17 04:00 Physical Exam - Physical Exam General Appearance: moderate distress, other (Low level mental function) EENT: other (Abrasions on forehead and nose - stable) Neck: full range of motion, supple, normal inspection Respiratory: lungs clear, normal breath sounds, other (Left chest tenderness. Poor IS function) Cardiac/Chest: regular rate, rhythm Abdomen: non-tender, distended Male Genitalia: deferred Rectal: deferred Back: Normal inspection Skin: normal color, warm/dry, other (extensive plaque psoriasis) Neuro/Psych: normal mood/affect Time Spent w/Patient (minutes): 25
--- NOTE | 2017-06-06 20:11 | PDRADPN ---
Radiology Procedure Note Date of Procedure: 06/06/17 Radiologist: Talon Fuentes Anesthesia: Local (Specify) Pre-op Diagnosis: Suboptimal access for ICU meds/draws Post-op Diagnosis: same Indication: access Procedure: LUE DL PICC Finding(s): entered basilic vein. post cxr good cath position. ok to use Inf/Abcess present in the surg proc area at time of surgery?: No EBL: Minimal Complications: no
[2017-06-06] MEDS: PATCH REMOVAL 1 EA PATCH TD SCH (21:19)
[2017-06-07] MEDS: LORazepam 2 MG/ML INJ IVP SCH ×3 (00:20→11:49)
[2017-06-07] MEDS: KETOROLAC 30 MG/1 ML SDV IVP PRN ×4 (01:54→23:18)
[2017-06-07] MEDS: ACETAMINOPHEN 500 MG TAB PO SCH ×3 (05:36→22:19)
[2017-06-07] MEDS: THIAMINE HCL 100 MG TAB PO SCH (08:36)
[2017-06-07] MEDS: ENOXAPARIN 40 MG/0.4 ML SYR SC SCH (08:36)
[2017-06-07] MEDS: CYCLOBENZAPRINE 10 MG TAB PO SCH ×3 (08:36→22:19)
[2017-06-07] MEDS: FAMOTIDINE 20 MG TAB PO SCH ×2 (08:36→22:18)
[2017-06-07] MEDS: LIDOCAINE 4%/MENTHOL 1% PATCH TD SCH (08:36)
[2017-06-07] MEDS: NICOTINE 21 MG/24 HR PATCH TD PRN (08:41)
[2017-06-07] MEDS: VODKA 50 ML BOTTLE PO PRN (08:42)
--- NOTE | 2017-06-07 09:33 | TRAUMAPN ---
Trauma Progress Note - Problem/Surgery Performed (1) Liver nodule Assessment/Plan: incidental finding on CT/MRI recommended by radiology will obtain today as patient may not be reliable for outpatient follow up (2) Alcohol intoxication Assessment/Plan: chronic alcohol abuse/receiving vodka while in hospital to avoid withdrawal Qualifiers: Complication of substance-induced condition: with delirium Qualified Code(s ): F10.921 - Alcohol use, unspecified with intoxication delirium (3) Head injury Assessment/Plan: concussion without evidence of ICH on CT x 2 cerebral atrophy likely related to chronic alcohol abuse Qualifiers: Encounter type: initial encounter Qualified Code(s): S09.90XA - Unspecified injury of head, initial encounter (4) Occipital scalp laceration Qualifiers: Encounter type: initial encounter Qualified Code(s): S01.01XA - Laceration without foreign body of scalp, initial encounter (5) Rib fractures Assessment/Plan: uncomplicated with reasonable pain control Qualifiers: Encounter type: initial encounter Rib fracture type: multiple ribs Fracture type: closed Laterality: left Qualified Code(s): S22.42XA - Multiple fractures of ribs, left side, initial encounter for closed fracture Subjective: Headache/left chest pain tolerating regular diet Objective: Vital Signs Temp Pulse Resp BP Pulse Ox 36.4 C 82 13 119/83 H 95 06/07/17 08:09 06/07/17 08:09 06/07/17 08:09 06/07/17 08:09 06/07/17 08:09 Laboratory Results 06/06/17 05:13 06/06/17 05:13 06/06/17 06/07/17 06/08/17 05:59 05:59 05:59 Intake Total 1719 1408 Output Total 1600 850 Balance 119 558 PT 13.8 SEC (12.0-15.0) 06/04/17 04:00 INR 1.04 (0.83-1.16) 06/04/17 04:00 - C-Spine Clearance Cervical Spine Cleared: Yes Provider who Cleared Cervical Spine: Richardson Physical Exam - Physical Exam General Appearance: mild distress, other (chronically ill appearing) EENT: other (abrasion over bridge of nose and right forehead) Neck: non-tender, other (posterior midline incision) Respiratory: normal breath sounds, decreased breath sounds Cardiac/Chest: regular rate, rhythm Abdomen: non-tender, soft Male Genitalia: deferred Rectal: deferred Back: Normal inspection Skin: warm/dry, other (plaque psoriatic lesions knees/elbows) Neuro/Psych: other (RN reports unsteady/ataxic gait/he has weakness of the LUE that he reports to be unchanged after his neck fusion several years ago) Time Spent w/Patient (minutes): 15
--- NOTE | 2017-06-07 10:42 | SOAPPROG ---
Downtime Inpatient MD Late Entry SOAP Note: Discussed on multi-disciplinary rounds. Additional history of past suicide attempt and [place]'s Chorea noted. Cleared by [facility] for potential transfer to inpatient rehab vs. SNF. No surgica/trauma issues to prevent transfer Neurology consult was discussed and recommended, however, no neurologist is dean of admissions for consults today. Nori Richards MD, FACS
[2017-06-07] MEDS: NEOMY SULF/BACITRAC ZN/POLY 30 GM OINTTUBE TP SCH ×2 (14:38→22:18)
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
[2017-06-07] MEDS ORDERED: GADOBUTROL 10 ML VIAL IVP ONE (14:50)
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
[2017-06-07] MEDS: VODKA 50 ML BOTTLE PO SCH ×2 (15:54→22:19)
--- NOTE | 2017-06-07 17:10 | ASMTCMCOM ---
CM Note CM Note Notes: Patient is unable to do ADL's and is having difficulty walking. As a result, he cannot be placed in a psych unit. Patient needs SNF rehab to get strong enough to walk again. Referrals have been sent out to several facilities and we have expanded the search to the [place] area in the hopes of finding a facility who can take the patient. Patient did live in [facility] for over 1 year but left AMA. [facility] is trying to get the records from [facility]. They did complete their eval but feel he is more appropriate for a SNF rehab program at this time. Patient has been suicidal in the past and is an open client with [facility]. A PASRR will need to be completed as time ran out today. CM will follow. Date Signed: 06/07/2017 05:10 PM Electronically Signed By:Renee Telles LCSW
[2017-06-07] MEDS: PATCH REMOVAL 1 EA PATCH TD SCH (22:18)
[2017-06-08] MEDS: HALOPERIDOL LACT 5 MG/ML INJ IVP PRN (01:27)
[2017-06-08] MEDS: ACETAMINOPHEN 500 MG TAB PO SCH ×3 (05:44→21:28)
[2017-06-08] MEDS: THIAMINE HCL 100 MG TAB PO SCH (09:04)
[2017-06-08] MEDS: FAMOTIDINE 20 MG TAB PO SCH ×2 (09:04→20:07)
[2017-06-08] MEDS: CYCLOBENZAPRINE 10 MG TAB PO SCH ×3 (09:04→21:22)
[2017-06-08] MEDS: LIDOCAINE 4%/MENTHOL 1% PATCH TD SCH (09:05)
[2017-06-08] MEDS: ENOXAPARIN 40 MG/0.4 ML SYR SC SCH (09:05)
[2017-06-08] MEDS: VODKA 50 ML BOTTLE PO SCH ×3 (09:07→21:24)
[2017-06-08] MEDS: NEOMY SULF/BACITRAC ZN/POLY 30 GM OINTTUBE TP SCH ×2 (09:09→20:11)
[2017-06-08] MEDS ORDERED: LICE KILLING SHAMPOO 118 ML TP ONE (10:22)
--- NOTE | 2017-06-08 10:32 | TRAUMAPN ---
Trauma Progress Note Assessment/Plan: 06/04/2017 PAD#0 Assessment: Patient has adamantly stated that he does not plan to stop alcohol. Not interactive enough for Psych eval Plan: Continue alcohol - 1 beer per meal adjust pain management restrain with roll belt Await until more interactive before Psych eval for suicidal ideology repeat Kwell as needed ( tx'd once in ER ) Follow up CXR in AM 06/05/2017 PAD#2 Assessment: Still minimally communicative. His alcohol supplement has been changed to vodka. Still on M1 hold. Chest/ribs - SATS stable. CXR Stable Scalp wound stable Plan: Continue supportive care 06/06/2017 PAD#3 Assessment: Patient quite rambunctious last night requiring large amount of sedative medications and his communicative skills remained marginal. A follow up CT this AM did not reveal any structural cause. Ammonia is slightly increased. This afternoon he is beginning to make limited sense in conversation. Rib fractures - No significant changes. Need to work on pulmonary toilet to prevent pneumonia. Scalp laceration - clean and dry Plaque psoriasis - no change Plan: F/u CXR F/u ammonia level Continue supportive care Work toward transfer leg pain - c/o thigh pain anteriorly - suspect related to contusions from point of impact. pad#5 06/08/2017 Assessment: awake, alert, coherent. Notes left rib pain - controlled Plan: F/u lice treatment increase activity hope to discharge tomorrow Subjective: I'm feeling better Objective: Vital Signs Temp Pulse Resp BP Pulse Ox 37.6 C 72 18 129/78 H 93 06/08/17 08:00 06/08/17 08:00 06/08/17 08:00 06/08/17 08:00 06/08/17 08:00 Laboratory Results 06/07/17 09:50 06/06/17 05:13 06/07/17 06/08/17 06/09/17 05:59 05:59 05:59 Intake Total 1408 2250 Output Total 850 250 Balance 558 2000 PT 13.8 SEC (12.0-15.0) 06/04/17 04:00 INR 1.04 (0.83-1.16) 06/04/17 04:00 - C-Spine Clearance Cervical Spine Cleared: Yes Provider who Cleared Cervical Spine: Richardson Physical Exam - Physical Exam General Appearance: WD/WN, alert, mild distress Neck: full range of motion, supple Respiratory: lungs clear, normal breath sounds, other (left ribs tender) Cardiac/Chest: regular rate, rhythm Abdomen: normal bowel sounds, non-tender, soft Male Genitalia: deferred Rectal: deferred Back: Normal inspection Skin: normal color, warm/dry Extremities: normal range of motion, non-tender, other (not wearing SCDs - patient reminded of importance of SCDs) Neuro/Psych: no motor/sensory deficits, alert, normal mood/affect, oriented x 3
--- NOTE | 2017-06-08 11:34 | ASMTCMCOM ---
CM Note CM Note Notes: Inpatient Rehab denied admission. Plan for LTC placement with Medicaid. Still need ULTC 100 completed. Note: Yamilka Brito in [place] and Ambika Senior in [place] are Moose's disease experts. Note: It is not clear from the medical record that Pt. has had a psychiatric evaluation from [facility] or a Catherine Dean consult as of yet. CM to follow for d/c POC. Date Signed: 06/08/2017 11:34 AM Electronically Signed By:Adenike Harris LCSW
[2017-06-08] MEDS: KETOROLAC 30 MG/1 ML SDV IVP PRN ×2 (12:55→20:06)
[2017-06-08] MEDS: PATCH REMOVAL 1 EA PATCH TD SCH (20:11)
[2017-06-09] MEDS: ACETAMINOPHEN 500 MG TAB PO SCH ×3 (06:20→21:41)
[2017-06-09] MEDS: KETOROLAC 30 MG/1 ML SDV IVP PRN (06:20)
[2017-06-09] MEDS: VODKA 50 ML BOTTLE PO SCH ×3 (09:04→21:42)
[2017-06-09] MEDS: NICOTINE 21 MG/24 HR PATCH TD PRN (09:05)
[2017-06-09] MEDS: CYCLOBENZAPRINE 10 MG TAB PO SCH ×3 (09:06→21:41)
[2017-06-09] MEDS: THIAMINE HCL 100 MG TAB PO SCH (09:06)
[2017-06-09] MEDS: FAMOTIDINE 20 MG TAB PO SCH ×2 (09:06→21:41)
[2017-06-09] MEDS: ENOXAPARIN 40 MG/0.4 ML SYR SC SCH (09:07)
[2017-06-09] MEDS: LIDOCAINE 4%/MENTHOL 1% PATCH TD SCH (09:07)
[2017-06-09] MEDS: NEOMY SULF/BACITRAC ZN/POLY 30 GM OINTTUBE TP SCH ×2 (09:10→21:45)
--- NOTE | 2017-06-09 11:51 | TRAUMAPN ---
Trauma Progress Note Assessment/Plan: 06/04/2017 PAD#0 Assessment: Patient has adamantly stated that he does not plan to stop alcohol. Not interactive enough for Psych eval Plan: Continue alcohol - 1 beer per meal adjust pain management restrain with roll belt Await until more interactive before Psych eval for suicidal ideology repeat Kwell as needed ( tx'd once in ER ) Follow up CXR in AM 06/05/2017 PAD#2 Assessment: Still minimally communicative. His alcohol supplement has been changed to vodka. Still on M1 hold. Chest/ribs - SATS stable. CXR Stable Scalp wound stable Plan: Continue supportive care 06/06/2017 PAD#3 Assessment: Patient quite rambunctious last night requiring large amount of sedative medications and his communicative skills remained marginal. A follow up CT this AM did not reveal any structural cause. Ammonia is slightly increased. This afternoon he is beginning to make limited sense in conversation. Rib fractures - No significant changes. Need to work on pulmonary toilet to prevent pneumonia. Scalp laceration - clean and dry Plaque psoriasis - no change Plan: F/u CXR F/u ammonia level Continue supportive care Work toward transfer leg pain - c/o thigh pain anteriorly - suspect related to contusions from point of impact. pad#5 06/08/2017 Assessment: awake, alert, coherent. Notes left rib pain - controlled Plan: F/u lice treatment increase activity hope to discharge tomorrow PAD#6 Assessment: Awake alert and interactive ( marked improvement since admission!) Reports rib pain continues. Poor use of IS (~1200cc) Plan: Increase activity Stress need for IS Still working on placement Plan cxr for tomorrow Subjective: my ribs hurt Objective: Vital Signs Temp Pulse Resp BP Pulse Ox 36.8 C 64 16 123/66 H 94 06/09/17 07:21 06/09/17 07:21 06/09/17 07:21 06/09/17 07:21 06/09/17 07:21 Laboratory Results 06/07/17 09:50 06/06/17 05:13 06/08/17 06/09/17 06/10/17 05:59 05:59 05:59 Intake Total 2250 500 Output Total 250 Balance 2000 500 PT 13.8 SEC (12.0-15.0) 06/04/17 04:00 INR 1.04 (0.83-1.16) 06/04/17 04:00 - C-Spine Clearance Cervical Spine Cleared: Yes Provider who Cleared Cervical Spine: Richardson Physical Exam - Physical Exam General Appearance: alert, mild distress Neck: non-tender, full range of motion, supple Respiratory: lungs clear, normal breath sounds, other (C/o left rib pain) Cardiac/Chest: regular rate, rhythm Abdomen: normal bowel sounds, non-tender, soft Male Genitalia: deferred Rectal: deferred Back: Normal inspection Skin: normal color, warm/dry Extremities: normal range of motion, non-tender Neuro/Psych: no motor/sensory deficits, alert, normal mood/affect, oriented x 3
[2017-06-09] MEDS: IBUPROFEN 200 MG TAB PO PRN (11:55)
--- NOTE | 2017-06-09 14:55 | ASMTCMCOM ---
CM Note CM Note Notes: CM met with patient to discuss completing a LTC Medicaid referral. The patient shares he does not have any supports except for some nice people at [facility], they keep his mail. CM completed ULTC 100.2, the patient signed and shared he thinks he has had LTC Medicaid in the past when he stayed at [facility]. Patient states he does not have a PCP and states he has been to [facility] within the last 6 months. CM faxed referral, face sheet, H&P, Neuro consult, and H&P to [facility] - referral packet with fax confirmation placed in chart. OT/SP rec SNF, PT [facility]. M1 hold lifted per MD. D/C date TBD, [facility]IL available for any CM needs. D/C Plan: Pending LTC Medicaid assessment. Date Signed: 06/09/2017 02:54 PM Electronically Signed By:Oxana Matias
[2017-06-09] MEDS: PATCH REMOVAL 1 EA PATCH TD SCH (21:45)
[2017-06-10] MEDS: IBUPROFEN 200 MG TAB PO PRN (02:12)
[2017-06-10] MEDS: ACETAMINOPHEN 500 MG TAB PO SCH ×3 (05:19→21:35)
[2017-06-10] MEDS: FAMOTIDINE 20 MG TAB PO SCH ×2 (09:37→21:35)
[2017-06-10] MEDS: CYCLOBENZAPRINE 10 MG TAB PO SCH ×3 (09:37→21:35)
[2017-06-10] MEDS: THIAMINE HCL 100 MG TAB PO SCH (09:38)
[2017-06-10] MEDS: LIDOCAINE 4%/MENTHOL 1% PATCH TD SCH (09:38)
[2017-06-10] MEDS: ENOXAPARIN 40 MG/0.4 ML SYR SC SCH (09:39)
[2017-06-10] MEDS: NEOMY SULF/BACITRAC ZN/POLY 30 GM OINTTUBE TP SCH ×2 (09:39→21:36)
[2017-06-10] MEDS: VODKA 50 ML BOTTLE PO SCH ×3 (09:40→21:35)
--- NOTE | 2017-06-10 10:24 | ASMTCMCOM ---
CM Note CM Note Notes: Patient is already eligible for LTC Medicaid. Desiree confirmed this through her Medicaid records. A psych eval was completed by [facility] as stated in my note dated 06/07/17. Patient is not eligble for a psych unit as a result of being too weak to walk, which was also stated in the 06/07/17 note. We are in the process of locating a walker at PT's request. This will be helpful to provide patient some balance and suppport. Still seeking SNF placement if possible. CM will follow. Date Signed: 06/10/2017 10:23 AM Electronically Signed By:Renee Telles LCSW
--- NOTE | 2017-06-10 12:09 | PDIAF ---
- Diagnosis Diagnosis: Left rib fractures 3-9, Chronic alcoholism, Scalp laceration, H[place]ton's Code Status: Full Code - Medication Management Discharge Medications: Medications to Continue on Transfer Acetaminophen [Tylenol ES 500 mg (*)] 1,000 mg PO Q8 tab 06/10/17 [Last Taken Unknown] Cyclobenzaprine [Flexeril 10 MG (*)] 10 mg PO TID PRN #30 tab 06/10/17 [Last Taken Unknown] Famotidine [Pepcid 20 MG (*)] 20 mg PO BID #60 tab 06/10/17 [Last Taken Unknown] Ibuprofen [Motrin (*)] 200 mg PO Q4HRS PRN tab 06/10/17 [Last Taken Unknown] Lidocaine 4%/Menthol 1% [Icy Hot Lidocaine/Menthol 4%/1% Patch (*)] 1 patch TD DAILY #30 patch 06/10/17 [Last Taken Unknown] Neomy Sulf/Bacitrac Zn/Poly [Triple Antibiotic Oint tube (*)] 1 mando TP BID oint 06/10/17 [Last Taken Unknown] Patch Removal 1 ea TD DAILY21 patch 06/10/17 [Last Taken Unknown] Discharge Medications: Refer to the Discharge Home Medication list for PRN reason. - Orders Services needed: Registered Nurse, Physical Therapy, Occupational Therapy Isolation Type: None Diet Recommendation: no restrictions on diet (avoid constipating foods: bananas , rice, apple sauce, cheese) Diet Texture: Regular Texture Diet Additional Instructions: Movement Disorder followup if needed r/t concern for Chorea w/ [facility], Dept of neurology - who has a clinic in [place]. Avoid injury to left chest Use Incentive Spirometer 10x every hour that you are awake Remove scalp sutures on 06/13 - Follow Up Care Current Providers and Referrals: Brandon Schafer MD [Medical Doctor] - (Follow up as needed) NONE *PRIMARY CARE P,. [Primary Care Provider] - As per Instructions
--- NOTE | 2017-06-10 12:16 | TRAUMAPN ---
Trauma Progress Note Assessment/Plan: 06/04/2017 PAD#0 Assessment: Patient has adamantly stated that he does not plan to stop alcohol. Not interactive enough for Psych eval Plan: Continue alcohol - 1 beer per meal adjust pain management restrain with roll belt Await until more interactive before Psych eval for suicidal ideology repeat Kwell as needed ( tx'd once in ER ) Follow up CXR in AM 06/05/2017 PAD#2 Assessment: Still minimally communicative. His alcohol supplement has been changed to vodka. Still on M1 hold. Chest/ribs - SATS stable. CXR Stable Scalp wound stable Plan: Continue supportive care 06/06/2017 PAD#3 Assessment: Patient quite rambunctious last night requiring large amount of sedative medications and his communicative skills remained marginal. A follow up CT this AM did not reveal any structural cause. Ammonia is slightly increased. This afternoon he is beginning to make limited sense in conversation. Rib fractures - No significant changes. Need to work on pulmonary toilet to prevent pneumonia. Scalp laceration - clean and dry Plaque psoriasis - no change Plan: F/u CXR F/u ammonia level Continue supportive care Work toward transfer leg pain - c/o thigh pain anteriorly - suspect related to contusions from point of impact. pad#5 06/08/2017 Assessment: awake, alert, coherent. Notes left rib pain - controlled Plan: F/u lice treatment increase activity hope to discharge tomorrow PAD#6 Assessment: Awake alert and interactive ( marked improvement since admission!) Reports rib pain continues. Poor use of IS (~1200cc) Plan: Increase activity Stress need for IS Still working on placement Plan cxr for tomorrow PAD#7 06/10/2017 Assessment: Awake alert and interactive ( marked improvement since admission!) Reports rib pain continues. CXR improved - E to A changes diminishing Poor use of IS (~1200cc) continues Plan: Increase activity Stress need for IS again working on placement for discharge tomorrow Subjective: My ribs hurt Objective: Vital Signs Temp Pulse Resp BP Pulse Ox 36.7 C 74 16 148/100 H 97 06/10/17 07:17 06/10/17 07:17 06/10/17 07:17 06/10/17 07:17 06/10/17 07:17 Laboratory Results 06/07/17 09:50 06/06/17 05:13 06/09/17 06/10/17 06/11/17 05:59 05:59 05:59 Intake Total 500 Balance 500 PT 13.8 SEC (12.0-15.0) 06/04/17 04:00 INR 1.04 (0.83-1.16) 06/04/17 04:00 - C-Spine Clearance Cervical Spine Cleared: Yes Provider who Cleared Cervical Spine: [facility] Physical Exam - Physical Exam General Appearance: WD/WN, alert, mild distress Neck: non-tender, full range of motion, supple Respiratory: lungs clear, normal breath sounds, other (Left chest tender E to A chages continue but are diminished in left chest) Cardiac/Chest: regular rate, rhythm Skin: other (scalp incision still has minimal drainage)
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
[2017-06-10] MEDS: PATCH REMOVAL 1 EA PATCH TD SCH (21:35)
[2017-06-11] MEDS: IBUPROFEN 200 MG TAB PO PRN (02:13)
[2017-06-11] MEDS: ACETAMINOPHEN 500 MG TAB PO SCH ×3 (05:04→22:02)
[2017-06-11] MEDS ORDERED: LORazepam 2 MG/ML INJ IVP SCH (09:00)
[2017-06-11] MEDS: FAMOTIDINE 20 MG TAB PO SCH ×2 (09:40→20:05)
[2017-06-11] MEDS: VODKA 50 ML BOTTLE PO SCH ×3 (09:40→22:03)
[2017-06-11] MEDS: CYCLOBENZAPRINE 10 MG TAB PO SCH ×3 (09:40→22:02)
[2017-06-11] MEDS: THIAMINE HCL 100 MG TAB PO SCH (09:40)
[2017-06-11] MEDS: LIDOCAINE 4%/MENTHOL 1% PATCH TD SCH (09:41)
[2017-06-11] MEDS: ENOXAPARIN 40 MG/0.4 ML SYR SC SCH (09:41)
[2017-06-11] MEDS: NEOMY SULF/BACITRAC ZN/POLY 30 GM OINTTUBE TP SCH ×2 (09:42→20:05)
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
--- NOTE | 2017-06-11 16:19 | SOAPPROG ---
SOAP Progress Note Assessment/Plan: Assessment: afebrile/ some rib pains/ bs equal/ ambulatory no new problems/ scalp wound ok Plan:repeat psych eval / fu cxr 06/11/17 16:17 Objective: Vital Signs Temp Pulse Resp BP Pulse Ox 36.9 C 75 16 130/76 H 94 06/11/17 15:39 06/11/17 15:39 06/11/17 15:39 06/11/17 15:39 06/11/17 15:39 Laboratory Results 06/07/17 09:50 06/06/17 05:13 06/10/17 06/11/17 06/12/17 05:59 05:59 05:59 Intake Total 500 Output Total 300 Balance 200 PT 13.8 SEC (12.0-15.0) 06/04/17 04:00 INR 1.04 (0.83-1.16) 06/04/17 04:00 ICD10 Worksheet Patient Problems: Problems Problem Status Onset Alcohol intoxication Acute Body lice Acute Head injury Acute Liver nodule Acute Occipital scalp laceration Acute Psoriasis Acute Rib fractures Acute Suicide attempt Acute
[2017-06-11] MEDS: PATCH REMOVAL 1 EA PATCH TD SCH (20:06)
[2017-06-12] MEDS: ACETAMINOPHEN 500 MG TAB PO SCH ×2 (05:49→14:04)
[2017-06-12] MEDS: ENOXAPARIN 40 MG/0.4 ML SYR SC SCH (07:33)
[2017-06-12] MEDS: THIAMINE HCL 100 MG TAB PO SCH (07:33)
[2017-06-12] MEDS: FAMOTIDINE 20 MG TAB PO SCH (07:33)
[2017-06-12] MEDS: LIDOCAINE 4%/MENTHOL 1% PATCH TD SCH (07:33)
[2017-06-12] MEDS: CYCLOBENZAPRINE 10 MG TAB PO SCH ×2 (07:33→16:05)
[2017-06-12] MEDS: NEOMY SULF/BACITRAC ZN/POLY 30 GM OINTTUBE TP SCH (07:37)
[2017-06-12] MEDS: VODKA 50 ML BOTTLE PO SCH ×2 (08:02→14:51)
[2017-06-12 08:41] VITALS: BP 123/75
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
--- NOTE | 2017-06-12 17:44 | ASMTCMCOM ---
CM Note CM Note Notes: Today after consultation with CM Director and CM Online Services Manager, it was decided that Pt. would d/c. At Pt's request, Pt. d/c'ed to a [facility] and [facility] ([address] in [place]). Pt. has supportive people who work at a liquor store near there who have some of his belongings. Should Pt. want to go there odilia, the [facility] bed is reserved for him. While Concha the Director at [facility] is empathetic and open to collaborating and willing to work with Pt. on his housing needs, it is likely that without [id number] case management for Pt. he will not be able to comply with appointments at this time due to his Lefors's disease process and level cognitive functioning/processing. Pt. struggles to compete tasks before him, let alone plan for appointments. Pt. grateful for assistance today to look through his lice contaminated clothing and belongings, for new clothes, and a cab ride to see his supportive friends. Date Signed: 06/12/2017 05:43 PM Electronically Signed By:Adenike Harris LCSW
== END 2017-06-12 17:20 | disposition home or self-care (01) | DRG 135 ==
LOC: EDUNIT# → EEVIPCON 05:17 → F2N 05:57 → F3E 06-08 00:10
PROVIDERS: ADMIT Surgery; ATTEND Surgery
PROC: 0HQ0XZZ Repair Scalp Skin, External Approach (ICD-10-PCS; principal; 2017-06-04)
PROC: 02HV33Z Insertion of Infusion Device into Superior Vena Cava, Percutaneous Approach (ICD-10-PCS; 2017-06-06)
DX: S22.42XA Multiple fractures of ribs, left side, initial encounter for closed fracture (principal); S06.0X1A Concussion with loss of consciousness of 30 minutes or less, initial encounter; S01.01XA Laceration without foreign body of scalp, initial encounter; G10 Huntington's disease; F10.230 Alcohol dependence with withdrawal, uncomplicated; F10.220 Alcohol dependence with intoxication, uncomplicated; F17.210 Nicotine dependence, cigarettes, uncomplicated; B85.2 Pediculosis, unspecified; S70.10XA Contusion of unspecified thigh, initial encounter; V03.10XA Pedestrian on foot injured in collision with car, pick-up truck or van in traffic accident, initial encounter; Y92.410 Unspecified street and highway as the place of occurrence of the external cause; L40.9 Psoriasis, unspecified; R40.2413 Glasgow coma scale score 13-15, at hospital admission; R93.2 Abnormal findings on diagnostic imaging of liver and biliary tract; Z59.0 Homelessness; Z23 Encounter for immunization
CPT/HCPCS: 80305; 92507-GN; 92523-GN; 96374; 97112-GO; 97112-GP; 97116-GP; 97163-GP; 97166-GO; 97530-GO; 97530-GP; 97535-GO; A9585; C1751; G0480; G0515-GO; J0690; J1170; J1630; J1650; J1885; J2060; J2270; J3411; Q9967

== ENCOUNTER 2017-06-12 22:57 | Emergency (ER) | payer MEDICAID, OTHER ==
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
[2017-06-13] MEDS ORDERED: IBUPROFEN 600 MG TAB PO ONE (00:05)
[2017-06-13] MEDS ORDERED: LIDOCAINE 4%/MENTHOL 1% PATCH TD ONE (00:05)
[2017-06-13] MEDS ORDERED: FAMOTIDINE 20 MG TAB PO ONE (00:05)
[2017-06-13] MEDS ORDERED: ACETAMINOPHEN 500 MG TAB PO ONE (00:05)
[2017-06-13] MEDS ORDERED: CYCLOBENZAPRINE 10 MG TAB PO ONE (00:12)
[2017-06-13 00:40] VITALS: BP 141/88
[2017-06-13] MEDS ORDERED: PATCH REMOVAL 1 EA PATCH TD SCH (21:00)
== END 2017-06-13 01:07 | disposition home or self-care (01) ==
LOC: EDUNIT#
DX: S22.42XD Multiple fractures of ribs, left side, subsequent encounter for fracture with routine healing (principal); F17.200 Nicotine dependence, unspecified, uncomplicated; Z91.14 Patient's other noncompliance with medication regimen

== ENCOUNTER 2017-07-03 16:38 | Emergency (ER) | payer MEDICAID ==
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
[2017-07-03 17:19] VITALS: BP 116/71
== END 2017-07-03 18:35 | disposition home or self-care (01) ==
LOC: EDUNIT#
DX: M25.561 Pain in right knee (principal); F17.200 Nicotine dependence, unspecified, uncomplicated

== ENCOUNTER 2017-10-11 20:26 | Inpatient (IN) | payer MEDICAID, OTHER ==
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
[2017-10-11 20:53] LABS: PLATELET COUNT 208 10^3/uL (150-400)
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
--- NOTE | 2017-10-11 23:08 | ASMTTCLDSP ---
TLC Discharge Disposition Disposition Notes: Notes: In consultation with [facility] ED physician, ALISSON Braden and Yue Joyce MD and on-call psychiatrist, Zohra Hightower MD, both concurred that pt appears to meet 27-65 criteria requiring psychiatric hospitalization as pt appears to be at risk of harm to self due to a mental illness condition. Was patient given the Answers: Yes Inpatient Behavioral Health Prohibited Belongings List while in the ED? For inpatient Zohra Hightower MD admission, the following psychiatrist agreed to accept patient for admission to Behavioral Health ([facility]): Type of Hold: Answers: M1/72-hour Hold Date Signed: 10/11/2017 11:07 PM Electronically Signed By:Jayden Herrera
[2017-10-12] MEDS ORDERED: NICOTINE POLACRILEX 2 MG GUM B PRN (02:25)
[2017-10-12] MEDS ORDERED: MAG HYDROX/AL HYDROX/SIMETH 30 ML UDCUP PO PRN (02:26)
[2017-10-12] MEDS ORDERED: MAGNESIUM HYDROXIDE 30 ML UDCUP PO PRN (02:26)
[2017-10-12] MEDS ORDERED: PROMETHAZINE HCL 25 MG TAB PO PRN (02:29)
[2017-10-12] MEDS ORDERED: PROMETHAZINE HCL 25 MG SUPPR PR PRN (02:29)
[2017-10-12] MEDS ORDERED: chlordiazePOXIDE 25 MG CAP PO PRN (02:29)
[2017-10-12] MEDS ORDERED: THIAMINE HCL 100 MG TAB (ONCE) PO ONE (02:29)
[2017-10-12] MEDS ORDERED: LORazepam 1 MG TAB PO PRN (08:18)
[2017-10-12] MEDS ORDERED: FLUMAZENIL 0.5 MG/5 ML MDV IVP PRN (08:18)
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
[2017-10-12] MEDS: MULTIVITAMINS 1 EACH TAB PO SCH (08:52)
[2017-10-12] MEDS: FOLIC ACID 1 MG TAB PO SCH (08:52)
[2017-10-12] MEDS: IBUPROFEN 200 MG TAB PO PRN ×2 (08:57→16:34)
[2017-10-12] MEDS: NICOTINE 21 MG/24 HR PATCH TD PRN (08:57)
[2017-10-12] MEDS ORDERED: THIAMINE HCL 500 MG in NS 100 ML IV SCH (09:00)
[2017-10-12] MEDS ORDERED: THIAMINE HCL 100 MG TAB (DAILY X 3) PO SCH (09:00)
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
[2017-10-12] MEDS: THIAMINE HCL 100 MG TAB PO SCH (09:37)
--- NOTE | 2017-10-12 12:32 | ASMTCMCOM ---
CM Note CM Note Notes: CC was able to send referral to [facility] via [employer]. Client remains appropriate on unit while disheveled and unclean. Date Signed: 10/12/2017 12:32 PM Electronically Signed By:Danny Beckham
[2017-10-12] MEDS: LORazepam 0.5 MG TAB PO PRN ×2 (15:01→20:07)
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
[2017-10-13] MEDS: LORazepam 0.5 MG TAB PO PRN ×3 (06:23→18:36)
[2017-10-13] MEDS: NICOTINE 21 MG/24 HR PATCH TD PRN ×2 (06:45→09:18)
[2017-10-13] MEDS: FOLIC ACID 1 MG TAB PO SCH (09:08)
[2017-10-13] MEDS: MULTIVITAMINS 1 EACH TAB PO SCH (09:08)
[2017-10-13] MEDS: THIAMINE HCL 100 MG TAB PO SCH (09:08)
[2017-10-13] MEDS: IBUPROFEN 200 MG TAB PO PRN (12:50)
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
[2017-10-13] MEDS ORDERED: CYANO/VITAMIN B12 1000 MCG/ML VIAL IM ONE (17:07)
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
[2017-10-13] MEDS: ACETAMINOPHEN 325 MG TAB PO PRN (17:37)
[2017-10-14] MEDS: THIAMINE HCL 100 MG TAB PO SCH (08:32)
[2017-10-14] MEDS: CYANO/VITAMIN B12 100 MCG TAB PO SCH (08:32)
[2017-10-14] MEDS: NICOTINE 21 MG/24 HR PATCH TD PRN (08:32)
[2017-10-14] MEDS: FOLIC ACID 1 MG TAB PO SCH (08:33)
[2017-10-14] MEDS: LORazepam 0.5 MG TAB PO PRN ×3 (08:33→22:35)
[2017-10-14] MEDS: IBUPROFEN 200 MG TAB PO PRN ×2 (08:33→21:00)
[2017-10-14] MEDS: ACETAMINOPHEN 325 MG TAB PO PRN (08:33)
[2017-10-14] MEDS: MULTIVITAMINS 1 EACH TAB PO SCH (08:33)
--- NOTE | 2017-10-14 10:22 | PDMN ---
Medical Necessity Medical necessity: [facility] M7065 Depressive Disorders, M595 Substance-Related Disorders: 52 y/o w/ depressive d/o unspecified, alcohol use disorder unspecified, neurocognitive d/o unspecified, suicidal, on M1 hold. Homeless.
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
[2017-10-15] MEDS: LORazepam 0.5 MG TAB PO PRN (06:53)
[2017-10-15] MEDS: NICOTINE 21 MG/24 HR PATCH TD PRN (06:54)
--- NOTE | 2017-10-15 07:01 | SOAPPROG ---
SOAP Progress Note Assessment/Plan: Assessment: Major Depressive Disorder with anxious distress, alcohol use disorder, severe; [place]'s Disorder; homelessness. Slight improvement noted; patient continues to report SI, however, does not report plan and states SI has reduced in frequency (see subjective/objective note). Patient is not safe to discharge at this time as patient continues to exhibit signs of depression, and express depression symptoms and SI. Patient requires continued inpatient care because of current depression and SI, and requires inpatient level of care to stabilize in order to no longer be a danger to himself. Patient could benefit from continued inpatient hospitalization for crisis stabilization, safety, and medication evaluation. Plan: (1) Psychotropic medications: After reviewing options, risks, and benefits patient agrees to continue current medications. Taper Ativan PRN for benzo taper in preparation for discharge tomorrow. No other medication changes at this time as more time is needed to determine ongoing tolerability and efficacy. Plan is to continue to observe patient for response and side effects from medications, and ongoing monitoring and evaluation. (2) Review with patient informed consent and recommendations for psychotropic medication treatment listed below (3) Labs: no additional at this time (4) Therapy: continue milieu and group therapy (5) Further investigation including gathering information from patients relatives and review of past case records to inform treatment plan. (6) Safety plan and follow-up outpatient appointments to be established prior to discharge. Next steps are for patient to meet with career specialist to plan a safe discharge plan and establish outpatient services for ongoing treatment. (7) Confer with inpatient treatment team regarding treatment plan. (8) Legal status: voluntary (9) Consider discharge on Saturday if patient is in stable condition, safe, and has a safe discharge plan. (10) Substance abuse interventions: recommend and referral to treatment for alcohol use disorder; alcohol use disorder education and brief intervention provided. PSYCHOTROPIC MEDICATION TREATMENT INFORMED CONSENT and RECOMMENDATIONS: Review nature of condition, diagnosis, and prognosis. Review nature and purpose of psychotropic medication treatment. Review type of psychotropic medications being ordered. Review risk and benefits of psychotropic medication treatment. Review probable length of time patient will need to take medications. Review risk and benefits of not undergoing psychotropic medication treatment. Review alternative treatments to psychotropic medications. Review psychotropic medications contraindications, drug-drug interactions, side effects, and importance of reporting any side effects to a psychiatric provider or nurse during inpatient hospitalization, and upon discharge to patients psychiatric outpatient provider, primary care provider, or other health chiropractic care. Review importance of asking a nurse, psychiatric provider, or primary care provider any questions or problems concerning the psychotropic medications. Verify patient understands the information that has been provided, and understands, accepts, and agrees to psychotropic medications. Review patients safety plan and importance of patient to report to staff while hospitalized if patient is ever a danger to self/others, or unable to care for self, and upon discharge, the importance for patient to contact [facility] or [facility], or go to the nearest emergency room, if patient is ever a danger to self/others, or unable to care for self. Recommend that upon discharge patient establish medication management treatment with a psychiatric provider, establishes routine therapy appointments, and follow-up with primary care provider. Verify patient understands and agrees to these recommendations. 10/15/17 07:02 Subjective: Following up with patient for evaluation of depression and safety. Patient reports, "Feeling a lot better, less thoughts of wanting to hurt myself." Patient expresses the following psychiatric symptoms depression. Patient reports taking medications as prescribed, and describes response to medications as okay. Patient does not report undesirable side effects from the medications. Patient reports appetite as good, and reports eating all meals. Patient describes getting 8 hours of sleep. Patient reports SI. Patient expresses SI has decreased in frequency and patient does not report plan nor expresses intent. Patient agrees to voluntary hospitalization with plan to discharge tomorrow (Saturday) if safe, stable, and safe discharge plan. Objective: Vital Signs Temp Pulse Resp BP Pulse Ox 36.3 C 62 14 160/72 H 93 10/15/17 06:00 10/15/17 06:00 10/15/17 06:00 10/15/17 06:00 10/15/17 06:00 NURSING REPORT: Consulted with nursing for update on patients progress in treatment. Nurses report patient is engaged in treatment, is attending groups, slept 7.5 hours, expresses the following psychiatric symptoms: depression; exhibits the following psychiatric symptoms: depressed, withdrawn, flat; is eating all meals, is attending to ADLs, is taking medications as prescribed with no report of side effects, with no s/s of EPS/akathisia, and denies HI, denies A/V hallucinations. Patient reports of SI decreased in frequency compared to yesterday. BUTTON RIVETER UPDATE: currently working on setting up outpatient appointments for medication management, therapy, substance abuse treatment, and making referrals for housing; assisting patient with obtaining SSI card. SUBSTANCE ABUSE BRIEF INTERVENTION: Brief intervention regarding the risks of alcohol abuse is provided to patient with goal to reduce the risk of harm that could result from the continued use of alcohol, with the general aim to investigate the problem, raise awareness of problem, develop a solution with the patient, recommend a specific change or activity, and motivate the patient toward change. Assess substance abuse behavior and give supportive advice about harm reduction, recommend a reduction in hazardous/at-risk consumption patterns, and facilitate referrals for additional specialized treatment with care program director. Intermediate goal is for the patient to quit use and attend a AA meeting. Intervention focus on intermediate goals to allow for more immediate success in the treatment process to keep the patient motivated. Review following with patient: Alcohol/Binge Drinking risks: short-term: injuries, violence, alcohol poisoning, risky sexual behaviors. Long-term: high blood pressure, stroke, liver disease, digestive problems, cancer, learning and memory problems, depression and anxiety, social problems, and alcohol dependence. MSE: The patient is a well-nourished male looking older than chronological age. Attire is appropriate and dress is hospital garb, and is neat and clean. Grooming status is inappropriate and disheveled and dirty. Ambulation is independent. Gait is normal and coordinated. Posture is normal and relaxed. Eye contact is appropriate, and adequate. 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 Attitude is cooperative and friendly. Patient appears attentive and relates well to this interviewer. Language production is spontaneous. R/R/V normal. 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 Patient reports mood as depressed with congruent affect. Patients thought process is linear and logical, with no loose associations, tangential thought, thought blocking, concrete thinking, or any other signs of formal thought disorder. Associations are connected. Patient does report suicidal thoughts. Patient denies suicidal plans and reports no intent. Patient denies homicidal thoughts. Patient denies auditory, visual hallucinations. Patient denies delusions. Patient does not appear to be attending to internal stimuli. Patients attention and concentration are adequate. Patient is oriented to person, place, time. Patients insight is poor. Patients judgment is poor. COGNITIVE FUNCTION: (from 10/15/17) Retention / Recall: repeat back these numbers: 5 1 5 0 3 / 9 6 8 3 6 4 2 - patient only able to repeat back 5 and 1 Abstractions: How is an airplane similar to a bird? "both fly" Memory: Remember these 3 items, ask to repeat back: Pin, Car, Duck patient only able to recall "Pin." Judgement: If you were in a restaurant and heard a fire alarm go off, what would you do? - "exit" If you found a stamped, sealed envelope on the side walk, what would you do with it? "put it in box" Orientation: x4 Calculations: 3 x 7 Count backwards by 3 or 7 starting from 100 - patient able to count backwards by 3s. Knowledge: patient fund of knowledge appropriate for level of education. - Time Spent With Patient Time Spent With Patient: 20 minutes, met with patient individually. - Pending Discharge Pending Discharge Within 24 Hours: Yes Pending Discharge Within 48 Hours: No Pending Discharge Date: 10/16/17 Pending Discharge Time: 11:00 ICD10 Worksheet Patient Problems: Problems Problem Status Onset Depression Acute Suicidal ideation Acute Alcohol intoxication Acute Body lice Acute Cellulitis of finger of right hand Acute Head injury Acute Liver nodule Acute Occipital scalp laceration Acute Psoriasis Acute Rib fractures Acute Suicide attempt Acute
[2017-10-15] MEDS ORDERED: THIAMINE HCL 100 MG TAB PO SCH (08:18)
[2017-10-15] MEDS: THIAMINE HCL 100 MG TAB PO SCH (09:10)
[2017-10-15] MEDS: CYANO/VITAMIN B12 100 MCG TAB PO SCH (09:10)
[2017-10-15] MEDS: FOLIC ACID 1 MG TAB PO SCH (09:12)
[2017-10-15] MEDS: MULTIVITAMINS 1 EACH TAB PO SCH (09:12)
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
[2017-10-15 11:52] VITALS: BP 138/71
== END 2017-10-15 13:10 | disposition home or self-care (01) | DRG 881 ==
LOC: EDUNIT# → BBEH 10-12 01:00
PROVIDERS: ADMIT Psychiatry & Neurology Behavioral Neurology & Neuropsychiatry; ATTEND Psychiatry & Neurology Behavioral Neurology & Neuropsychiatry
DX: F32.9 Major depressive disorder, single episode, unspecified (principal); E87.1 Hypo-osmolality and hyponatremia; G10 Huntington's disease; Z76.5 Malingerer [conscious simulation]; F17.200 Nicotine dependence, unspecified, uncomplicated; F10.20 Alcohol dependence, uncomplicated; E86.1 Hypovolemia; N40.0 Benign prostatic hyperplasia without lower urinary tract symptoms; D64.9 Anemia, unspecified; Z59.0 Homelessness
CPT/HCPCS: 80305; 82607-90; 92523-GN; 92610-GN; G0480; J3420

== ENCOUNTER 2017-10-16 21:31 | Emergency (ER) | payer MEDICAID, OTHER ==
--- NOTE | 2017-10-16 21:36 | EDPHY ---
H & P - Medical/Surgical History Hx Asthma: No Hx Chronic Respiratory Disease: No Hx Diabetes: No Hx Cardiac Disease: No Hx Renal Disease: No Hx Cirrhosis: No Hx Alcoholism: Yes Hx HIV/AIDS: No Hx Splenectomy or Spleen Trauma: No Other PMH: huntingtons soledad, ETOH abuse, homeless - Social History Smoking Status: Current every day smoker Time Seen by Provider: 10/16/17 21:32 HPI/ROS: CHIEF COMPLAINT: Suspected alcohol abuse HISTORY OF PRESENT ILLNESS: 52 year old homeless male arrives via ambulance for suspected alcohol abuse. Patient unable to ambulate without assistance. No reports of trauma or assault. No fall from height. No structures of height near patient. Patient is on an are cold REVIEW OF SYSTEMS: A ten point review of systems was performed and is negative with the exception of the items mentioned in the HPI PAST MEDICAL/SURGICAL HISTORY: no anticoagulant use, no relevant medical/ surgical history SOCIAL HISTORY: Positive for witnessed and self disclosed alcohol use PHYSICAL EXAM 1) GENERAL: Poorly kept, smells of alcohol, alert and oriented. Appears to be in no acute distress. Answering questions appropriately.Smells of alcohol. 2) HEAD: Normocephalic, atraumatic 3) HEENT: Pupils equal, round, reactive to light bilaterally. Negative Horners. Nasopharynx, oropharynx, clear. No deformity or angulation of nose. No septal hematoma. No rhinorrhea. No oral trauma. Ears bilaterally with normal tympanic membranes. No hemotympanum. No fluid or blood in the external auditory canal. No raccoon eyes. No Rosales sign. Teeth are normally aligned with no gross malocclusion, TMJ bilaterally nontender, facial bones nontender including the zygomatic arch, maxilla mandible. 4) NECK: No cervical collar is on. Posterior cervical spine is nontender, no stepoff, no effusion. Full range of motion which does not elicit any midline cervical spine pain, no posterior midline tenderness, no step-off. 5) LUNGS: Clear to auscultation bilaterally, no wheezes, no rhonchi, no retractions. No obvious signs of trauma. No chest wall pain. No flaring, no grunting. Moving symmetrically. No crepitus. 6) HEART: [Regular rate and rhythm, 7) ABDOMEN: No guarding, no rebound, no focal tenderness, no peritoneal signs, no signs of trauma, no ecchymosis 8) MUSCULOSKELETAL: Moving all extremities, no focal areas of tenderness, no obvious trauma. 9) BACK: No midline vertebral tenderness, no fluctuance, no step-off, no obvious trauma, no visual or palpable abnormality. 10) SKIN: No laceration. No abrasion DIFFERENTIAL DIAGNOSIS: In no particular order including but not limited to hypoglycemia, infectious process, electrolyte abnormality, head injury and intoxicants. (Geronimo Kaminski) Constitutional: Initial Vital Signs Temperature (C) 36.7 C 10/16/17 21:32 Heart Rate 68 10/16/17 21:32 Respiratory Rate 16 10/16/17 21:32 Blood Pressure 98/54 L 10/16/17 21:32 O2 Sat (%) 87 L 10/16/17 21:32 O2 Delivery Mode Room Air O2 (L/minute) 2 Allergies/Adverse Reactions: Penicillins Allergy (Verified 10/16/17 21:46) Home Medications: Medication Instructions Recorded NK [No Known Home Meds] 10/14/17 Medical Decision Making ED Course/Re-evaluation: 9:30 p.m.: Patient is on an arc hold. He will be allowed to sober in the ER until he is able to [facility]. He is familiar to emergency department staff and myself. I saw this patient independently based on established practice protocols. Care of patient under supervision of secondary supervising physician Dr Turner . Midnight: Care turned over to Dr. Jessica Mcgarry. Patient continues to sober in the ER (Geronimo Kaminski) - Data Points Medications Given: Discontinued Medications Chlordiazepoxide (Librium 25 Mg Prepack#6) [facility] Stop: 10/16/17 21:38 Last Admin: 10/17/17 06:25 Dose: 1 btl Departure - Departure Disposition: Home, Routine, Self-Care Clinical Impression: Acute alcohol abuse Condition: Good Instructions: Chlordiazepoxide (By mouth), Abuse of Alcohol (ED) Additional Instructions: Please consider long-term sobriety Referrals: [facility] [Outside] - As per Instructions
[2017-10-16] MEDS ORDERED: CHLORDIAZEPOXIDE 25MG PREPK#6 BTL TAKEHOME ONE (21:37)
[2017-10-17] MEDS ORDERED: CHLORDIAZEPOXIDE 25MG PREPK#6 BTL TAKEHOME ONE (06:19)
[2017-10-17 06:27] VITALS: BP 101/61
== END 2017-10-17 06:52 | disposition home or self-care (01) ==
LOC: EDUNIT#
DX: F10.229 Alcohol dependence with intoxication, unspecified (principal); F17.200 Nicotine dependence, unspecified, uncomplicated; Z59.0 Homelessness

== ENCOUNTER 2017-10-17 19:44 | Emergency (ER) | payer MEDICAID, OTHER ==
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
[2017-10-17 20:48] LABS: PLATELET COUNT 291 10^3/uL (150-400)
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
--- NOTE | 2017-10-17 23:13 | ASMTLCPROG ---
Notes Note: Notes: This pt phillips been evaluated and makes a commttment not to engage in self destructive behavior while in the ED but would not commit to safety if discharged. Pt meets the 27-65 criteria for in-pt psychiatric hospitalization as he appears to be at imminent risk of harm to self. Date Signed: 10/17/2017 11:13 PM Electronically Signed By:Avril Garsia
[2017-10-18] MEDS ORDERED: NICOTINE 21 MG/24 HR PATCH TD ONE (09:55)
[2017-10-18] MEDS ORDERED: chlordiazePOXIDE 25 MG CAP ONE (09:55)
[2017-10-18] MEDS ORDERED: chlordiazePOXIDE 25 MG CAP PO ONE (10:05)
[2017-10-18 11:00] VITALS: BP 135/70
--- NOTE | 2017-10-18 12:36 | ASMTCMCOM ---
CM Note CM Note Notes: CM requested to assist with patient after it was decided that he would be discharged to the streets and to follow up with outpatient resources. Per chart review of previous admission and ED visits, patient has been scheduled with [facility] at the [facility] in the past. This CM spoke w/GABRIELA Gracia at the [facility] (PC at [facility]) ([phone]) and she said pt was last seen during PC drop-in hours on 10/10/17 for leg pain and weakness and was recommended to follow up w/his PCP Simi Reese at , have an MRI ordered and also was referred to [facility]. Pt has never followed up /PC to get an MRI or w/[facility]. This CM offered a follow-up appt for pt to see Simi Reese on 10/31/17 but pt adamantly declined. Pt continued to decline offers of making appointments for him at [facility] and [facility]. Pt states he is aware of all of the available resources in the community and declines any assistance w/accessing them. Date Signed: 10/18/2017 12:35 PM Electronically Signed By:Adenike Campbell RN
== END 2017-10-18 11:00 | disposition home or self-care (01) ==
PROC: GZ11ZZZ Psychological Tests, Personality and Behavioral (ICD-10-PCS; principal; 2017-10-17)
DX: R45.851 Suicidal ideations (principal); F17.200 Nicotine dependence, unspecified, uncomplicated; Z76.5 Malingerer [conscious simulation]; Z59.0 Homelessness; F10.20 Alcohol dependence, uncomplicated
CPT/HCPCS: 80305; G0480

== ENCOUNTER 2017-10-20 02:24 | Emergency (ER) | payer MEDICAID ==
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
[2017-10-20] MEDS ORDERED: CHLORDIAZEPOXIDE 25MG PREPK#6 BTL TAKEHOME ONE (06:29)
[2017-10-20 06:58] VITALS: BP 141/76
== END 2017-10-20 07:25 | disposition home or self-care (01) ==
LOC: EDUNIT#
DX: F10.920 Alcohol use, unspecified with intoxication, uncomplicated (principal); Z59.0 Homelessness

== ENCOUNTER 2017-10-22 16:53 | Emergency (ER) | payer MEDICAID ==
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
[2017-10-22] MEDS ORDERED: CHLORDIAZEPOXIDE 25MG PREPK#6 BTL TAKEHOME ONE (19:31)
[2017-10-22 19:59] VITALS: BP 154/78
== END 2017-10-22 19:56 | disposition home or self-care (01) ==
DX: S09.90XA Unspecified injury of head, initial encounter (principal); F10.10 Alcohol abuse, uncomplicated; F17.200 Nicotine dependence, unspecified, uncomplicated; Z59.0 Homelessness

== ENCOUNTER 2017-11-03 01:28 | Emergency (ER) | payer MEDICAID ==
--- NOTE | 2017-11-03 01:33 | EDPHY ---
H & P Source: Patient, EMS - Medical/Surgical History Hx Asthma: No Hx Chronic Respiratory Disease: No Hx Diabetes: No Hx Cardiac Disease: No Hx Renal Disease: No Hx Cirrhosis: No Hx Alcoholism: Yes Hx HIV/AIDS: No Hx Splenectomy or Spleen Trauma: No Other PMH: huntingtons soledad, ETOH abuse, homeless - Social History Smoking Status: Current every day smoker Time Seen by Provider: 11/03/17 02:04 HPI/ROS: HPI CHIEF COMPLAINT: Alcohol Intoxication HISTORY OF PRESENT ILLNESS: 52-year-old male, history of alcoholism, daily alcohol use, and Hutchinson's, presents emergency room by EMS as he is too intoxicated with alcohol. Patient was unable to ambulate correctly. So brought here to the ER on an arc hold. Patient was found sleeping behind cause most pizza. Over noted he has a very small 3 cm head laceration over the left temporal region. Past Medical History: Alcoholism, daily alcohol use, Hutchinson's chorea Past Surgical History: No recent surgery Social History: Homeless. Daily alcohol use. Family History: Noncontributory ROS REVIEW OF SYSTEMS: 10 Systems were reviewed and negative with the exception of the elements mentioned in the history of present illness. Exam Constitutional Intoxicated, triage nursing summary reviewed, vital signs reviewed, Sleepy, smells of alcohol Eyes normal conjunctivae and sclera, horizontal beating nystagmus consistent acute alcohol intoxication, otherwise pupils equal and react to light HENT head/neck atraumatic except left temporal region there is a 3 cm laceration present, moist mucus membranes, no epistaxis, neck supple/ no meningismus, no raccoon eyes. Respiratory clear to auscultation bilaterally, normal breath sounds, no respiratory distress, no wheezing. Cardiovascular rate normal, regular rhythm, no murmur, no edema, distal pulses normal. Gastrointestinal soft, non-tender, no rebound, no guarding, normal bowel sounds, no distension, no pulsatile mass. Genitourinary no CVA tenderness. Musculoskeletal no midline vertebral tenderness, full range of motion, no calf swelling, no tenderness of extremities, no meningismus, good pulses, neurovascularly intact. Skin pink, warm, & dry, no rash, skin atraumatic. Neurologic sleepy, intoxicated with alcohol,, alert and oriented x 3, AAOx3, moves all 4 extremities equally, motor intact, sensory intact, CN II-XII intact , , normal vision, normal speech. Psychiatric normal mood/affect. Heme/Lymph/Immune no lymphadenopathy. Differential Diagnosis: Includes but is not limited to in a particular order acute alcohol intoxication, alcohol abuse, dehydration, electrolyte abnormality , nausea vomiting from acute alcohol intoxication Medical Decision Making: Plan for this patient CT scan head without contrast due to alcohol intoxication and acute head trauma on exam. Check breath alcohol. Re-evaluate. Monitor for worsening condition monitor for sobriety. Re-evaluation: CT scan head without contrast negative for acute traumatic injury. 0500: Patient ambulated well to the bathroom without difficulty. Clinically sober. Recommend patient refrain from drinking alcohol. Patient understands have sutures removed in 7 days. Return precautions discussed. (Lio Roberson) Constitutional: Initial Vital Signs Temperature (C) 36.5 C 11/03/17 01:35 Heart Rate 59 L 11/03/17 01:35 Respiratory Rate 20 11/03/17 01:35 Blood Pressure 134/67 H 11/03/17 01:35 O2 Sat (%) 90 L 11/03/17 01:35 O2 Delivery Mode Room Air Allergies/Adverse Reactions: Penicillins Allergy (Verified 11/03/17 01:34) Home Medications: Medication Instructions Recorded NK [No Known Home Meds] 10/14/17 Medical Decision Making Procedures: My involvement the care this patient is solely for procedure. Please see the note of the attending physician for all other aspects of care. PROCEDURE: Laceration repair Consent: Verbal Location: Left scientology Length of repair: 2.5 cm Complexity: Simple Layer involvement: Single Anesthesia: Local. 0.5% Marcaine without epinephrine. 5 mL Irrigation: Extensive Debridement: None Procedure description: Following good anesthesia, the wound was copiously irrigated. Wound bed was explored with a sterile glove, and there is no foreign body noted. No injury to the underlying fascia, frontalis muscle or galea. Wound borders were approximated well with good hemostasis. Tolerated well without complication. Suture/Staple material: 6-0 Prolene, 2 simple interrupted sutures Wound care: Routine as discussed Suture/Staple removal:5-7 Days (Jonah Blanco) Departure - Departure Disposition: Home, Routine, Self-Care Clinical Impression: Alcohol intoxication Qualifiers: Complication of substance-induced condition: uncomplicated Qualified Code(s): F10.920 - Alcohol use, unspecified with intoxication, uncomplicated Laceration of head Qualifiers: Encounter type: initial encounter Location of open wound of head: unspecified part of head Foreign body presence: without foreign body Qualified Code(s): S01.91XA - Laceration without foreign body of unspecified part of head, initial encounter Condition: Good Instructions: Care For Your Stitches (ED), Laceration (ED), Alcohol Intoxication (ED), Abuse of Alcohol (ED) Additional Instructions: 1. Your sutures need to be removed in 7 days. 2. Please stop drinking alcohol. Referrals: NONE *PRIMARY CARE P,. [Primary Care Provider] - As per Instructions
[2017-11-03] MEDS ORDERED: CHLORDIAZEPOXIDE 25MG PREPK#6 BTL TAKEHOME ONE (05:04)
[2017-11-03 06:29] VITALS: BP 102/59
== END 2017-11-03 06:10 | disposition home or self-care (01) ==
LOC: EDUNIT# → EDBD
PROC: 0HQ1XZZ Repair Face Skin, External Approach (ICD-10-PCS; principal; 2017-11-03)
DX: S01.81XA Laceration without foreign body of other part of head, initial encounter (principal); F10.229 Alcohol dependence with intoxication, unspecified; G10 Huntington's disease; Y93.9 Activity, unspecified; Y92.480 Sidewalk as the place of occurrence of the external cause

== ENCOUNTER 2017-11-24 12:21 | Emergency (ER) | payer MEDICAID ==
[2017-11-24] MEDS ORDERED: LORazepam 2 MG/ML INJ IVP ONE (13:12)
[2017-11-24] MEDS ORDERED: GLUCAGON HCL 1 MG VIAL IVP ONE (13:14)
--- NOTE | 2017-11-24 13:16 | EDPHY ---
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 Around noon today, he choked on a piece of meat. He reports he has been choking frequently on food but has always been able to swallow in the past. He continues to feel the sensation of foreign body in his throat. He clarifies later in my interview that the meat was a rib and he is concerned there is a bone stuck in his throat. He endorses rhinorrhea. He denies fever, recent cold or cough symptoms. No chills, chest pain, shortness of breath, palpitations, vomiting, diarrhea, urinary complaints, headache, lightheadedness. REVIEW OF SYSTEMS: A comprehensive 10 system review of systems is otherwise negative aside from elements mentioned in the history of present illness and medical decision making. PAST MEDICAL HISTORY: Ashton's disease. History of closed head injury. Appendectomy. Psoriasis. SOCIAL HISTORY: Daily tobacco use. History of alcohol abuse. Transient. VITAL SIGNS: Reviewed by me GENERAL: Well-developed, well-nourished, no respiratory distress, no stridor or wheezing. Patient is spitting frequently and is only swallowing some of his secretions. 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 HEENT: Atraumatic. Eyes: No icterus, no injection. Mouth: Thick mucous verses foreign body visualized in the posterior oropharynx. Moist mucous membranes. Neck: supple with no adenopathy. No stridor. LUNGS: Coarse breath sounds throughout, wheezes bilaterally. No stridor. CARDIAC: Regular rate and rhythm, no rubs, murmurs or gallops. ABDOMEN: Soft, nontender, nondistended, bowel sounds normal. BACK: No CVA tenderness. EXTREMITIES: No trauma. No edema. Range of motion is normal throughout. NEURO: Alert and oriented, grossly nonfocal. SKIN: Warm and dry, no rash. PSYCHIATRIC: Normal mentation, no agitation. Portions of this note were transcribed by a medical screener. I personally performed a history, physical exam, medical decision making, and confirmed accuracy of information the transcribed note. ED Course: 52 y/o male with history of Ashton's disease presents with concern for an esophageal foreign body after attempting to swallow a large piece of meat. Patient is rather difficult exam given his Ashton's disease. I do visualize quite thick mucus and perhaps the hint of a foreign body visualized in the posterior pharynx, but am unable to further evaluate given the patient's restless choreiform movements. On repeat oropharyngeal evaluation, I no longer see this thick mucus/foreign body. Plan for x-ray of neck and chest. IV established. Plan to administer 1mg IV glucagon and 1mg IV Ativan for symptom relief. 13:[address] Anglin, radiologist. Possible large soft tissue foreign body visualized on x-ray. 14:[address] Gupta, pediatric registered nurse. Plan to consult with ENT. 14:08 Patient just coughed out a very large hunk of meat. He is feeling much better. Plan for repeat neck x-ray. The patient feels that he can swallow now and appears relieved and content. He does endorse some continued mild soreness in his throat. The piece of meat that the patient coughed up is at least 6 cm by 4 cm in size. Repeat x-ray is normal in appearance, with resolution of the soft tissue density in the hypopharynx. The patient continues to feel well. He is able to swallow without difficulty. Plan to discharge home in good condition. Follow up and return precautions discussed. I encouraged him to cut up his food into small pieces. He is comfortable with this plan. MDM: Differential diagnoses for the patient's symptom complex was considered including but not limited to esophageal foreign body, airway foreign body, resolved esophageal foreign body with residual irritation in the esophagus, esophageal occlusion by foreign body, aspirated foreign body. - Data Points Imaging Results: Chest X-Ray 11/24/17 13:12 Impression: No evidence for acute cardiopulmonary abnormality. Chronic findings , as above. No evidence for a radiopaque foreign body. Soft Tissue Neck X-Ray 11/24/17 13:12 Impression: Radiopaque soft tissue density in the hypopharynx anterior to C4 and C5. Results called and discussed with Eli Maria MD on November 24, 2017 at 1355 hours. Medications Given: Discontinued Medications Glucagon (Glucagon) 1 mg IVP EDNOW ONE Stop: 11/24/17 13:15 Last Admin: 11/24/17 13:40 Dose: 1 mg Lorazepam (Ativan Injection) 1 mg IVP EDNOW ONE Stop: 11/24/17 13:13 Last Admin: 11/24/17 13:37 Dose: 1 mg General Time Seen by Provider: 11/24/17 12:58 Initial Vital Signs: Initial Vital Signs Temperature (C) 36.8 C 11/24/17 12:25 Heart Rate 89 11/24/17 12:25 Respiratory Rate 18 11/24/17 12:25 Blood Pressure 134/72 H 11/24/17 12:25 O2 Sat (%) 92 11/24/17 12:25 O2 Delivery Mode Room Air Allergies/Adverse Reactions: Penicillins Allergy (Verified 11/24/17 12:27) Home Medications: Medication Instructions Recorded NK [No Known Home Meds] 10/14/17 Departure - Departure Disposition: Home, Routine, Self-Care Clinical Impression: Esophageal foreign body Qualifiers: Encounter type: initial encounter Qualified Code(s): T18.108A - Unspecified foreign body in esophagus causing other injury, initial encounter Condition: Good Instructions: Esophageal Foreign Body (ED) Additional Instructions: Please be sure to cut your food into small pieces before eating. Return for difficulty breathing, inability to swallow, or other worsening of condition. Referrals: [facility],. [Clinic] - As per Instructions Report Scribed for: Eli Maria Report Scribed by: Quiana Kaufman Date of Report: 11/24/17 Time of Report: 15:11
[2017-11-24 15:04] VITALS: BP 131/80
--- NOTE | 2017-11-24 16:37 | ASMTCMCOM ---
CM Note CM Note Notes: Reviewed chart. Pt presented to the Emergency Department after choking on a large piece of meat. History includes Moose's disease, ETOH abuse, psoriasis, CHI, and an appendectomy. Pt is homeless and is well known to this Emergency Department. Asked to see pt by GABRIELA Jo for assistance coordinating discharge. Met with pt. Pt states he would like to discharge to the [facility] on [address]. Questioned pt about why he wishes to go to the [facility], pt stated - "I like sleeping behind it." Offered pt reserved bed at the [facility] resources and community table information for tonight. Pt declined, stating he just wants to go to the [facility]. Discussed cold front moving in and freeze warning, pt continued to decline [facility]. Pt states he has no money and cannot walk to the [facility]. Pt reports that he has a friend named Sindi, who could maybe provide him a ride and a place to stay. Two calls placed to Sindi (address: [address] [place] [address] [id number], [place], [place]); no answer, left voice message. Updates provided to GABRIELA Jo and pt. GABRIELA Jo offered pt bed at [facility]; pt declined. [employer] cab voucher provided to pt, cab called. Pt [facility] at [address] [place] [address]. Pt states he will attempt to reach Sindi again, once discharged. Pt to follow up as directed. CM available for any further issues or concerns. Date Signed: 11/24/2017 04:31 PM Electronically Signed By:Marielos Sheikh RN
== END 2017-11-24 16:00 | disposition home or self-care (01) ==
LOC: EDUNIT#
DX: T18.108A Unspecified foreign body in esophagus causing other injury, initial encounter (principal); F17.200 Nicotine dependence, unspecified, uncomplicated
CPT/HCPCS: 96374; J1610; J2060

== ENCOUNTER 2018-01-16 19:44 | Emergency (ER) | payer MEDICAID ==
[2018-01-16 19:50] VITALS: BP 118/71
[2018-01-16] MEDS ORDERED: CHLORDIAZEPOXIDE 25MG PREPK#6 BTL TAKEHOME ONE (20:18)
--- NOTE | 2018-01-16 20:18 | EDPHY ---
H & P Stated Complaint: etoh Time Seen by Provider: 01/16/18 19:45 HPI/ROS: CHIEF COMPLAINT: Alcohol intoxication HISTORY OF PRESENT ILLNESS: Patient is brought to the emergency department by paramedics with alcohol intoxication. The patient is well known to the department and is a frequent visitor here with alcohol intoxication. The patient has no desire for sobriety. He denies any complaints of acute pain, trauma or fever. The patient denies suicidal homicidal ideation. REVIEW OF SYSTEMS: A comprehensive 10 point review of systems is otherwise negative aside from elements mentioned in the history of present illness. Source: Patient, EMS - Personal History Current Tetanus Diphtheria and Acellular Pertussis (TDAP): Unsure - Medical/Surgical History Other PMH: etoh abuse, huntingtons chorea - Social History Smoking Status: Unknown if ever smoked - Physical Exam Exam: General Appearance: Alert, alcohol on breath, no acute distress Eyes: Pupils equal and round no pallor or injection ENT, Mouth: Mucous membranes moist Respiratory: There are no retractions, lungs are clear to auscultation Cardiovascular: Regular rate and rhythm Gastrointestinal: Abdomen is soft and nontender, no masses, bowel sounds normal Neurological: GCS 15, 5/5 strength noted all 4 extremities Skin: Warm and dry, no rashes Musculoskeletal: Neck is supple nontender Extremities: symmetrical, full range of motion Constitutional: Initial Vital Signs Temperature (C) 36.4 C 01/16/18 19:46 Heart Rate 70 01/16/18 19:46 Respiratory Rate 18 01/16/18 19:46 Blood Pressure 118/71 01/16/18 19:46 O2 Sat (%) 91 L 01/16/18 19:46 O2 Delivery Mode Room Air Allergies/Adverse Reactions: Penicillins Allergy (Verified 01/16/18 19:45) Home Medications: Medication Instructions Recorded NK [No Known Home Meds] 01/16/18 Medical Decision Making ED Course/Re-evaluation: The patient presents the ED with alcohol intoxication. He is ambulatory with assistance of would [facility]. The patient is at risk for alcohol withdrawal and will be discharged to the [facility] with a Librium prepack. The patient is discharged from the emergency department with customary aftercare instructions and return precautions. Departure - Departure Disposition: Home, Routine, Self-Care Clinical Impression: Alcoholic intoxication Condition: Good Instructions: Alcohol Intoxication (ED) Referrals: [facility] [Outside] - As per Instructions
== END 2018-01-16 21:15 | disposition home or self-care (01) ==
LOC: MERGE 19:44
DX: F10.129 Alcohol abuse with intoxication, unspecified (principal)

== ENCOUNTER 2018-01-24 20:51 | Emergency (ER) | payer OTHER ==
--- NOTE | 2018-01-24 22:06 | EDPHY ---
General Time Seen by Provider: 01/24/18 21:09 Narrative: CHIEF COMPLAINT: Alcohol intoxication HISTORY OF PRESENT ILLNESS: Patient presents to emergency department on an arc hold with reports of acute alcohol intoxication. Patient is well-known to this emergency department with alcohol dependency. He has no complaints other than his complaint "I have got Parkinson's." He denies headache or chest pain. He denies any abdominal pain, vomiting or fever. He does have a strong odor of alcohol about him. No other associated complaints or modifying factors obtainable. REVIEW OF SYSTEMS: 10 systems were reviewed and negative with the exception of the elements mentioned in the history of present illness. PCP: [facility] SPECIALISTS: Neurology PAST MEDICAL HISTORY: Alcohol dependency, Parkinson's PAST SURGICAL HISTORY: No recent surgery SOCIAL HISTORY: Currently homeless. Admits to daily heavy alcohol ingestion. FAMILY HISTORY: Noncontributory EXAMINATION: Vitals: Triage VS reviewed General Appearance: Alert, no distress. Unkempt. Head: normocephalic, atraumatic no depression deformity. Eyes: Pupils equal and round, no conjunctival pallor or injection ENT, Mouth: Mucous membranes moist. Very poor dentition. Neck: Normal inspection, supple, non-tender Respiratory: Mild rhonchi. No wheezing or crackles. No diminishment. Cardiovascular: Regular rate and rhythm. Good signs of perfusion distally. Gastrointestinal: Abdomen is soft and nontender Back: non-tender, no bony abnormalities Neurological: Alert to person and place. Will not answer my questions otherwise. Moving all 4 extremities spontaneously but will not follow my commands to test sensory or strength. Skin: Warm and dry, no rash. Evidence of psoriasis to the upper extremities. Extremities: Nontender, no pedal edema DIFFERENTIAL DIAGNOSES: Including but not limited to acute alcohol intoxication, alcohol dependency. MDM: 9:05 p.m. Acute alcohol intoxication the patient with history of alcohol abuse. He is well-known to this emergency department and has no concerning examination findings. Does have history of Parkinson's with baseline tremor per my evaluation. He is awake alert. No acute distress. His airway is patent and he is protecting his airway without any difficulty 10:30 p.m. Patient is still very somnolent. He is in no acute distress. 11:45 p.m. Patient remains somnolent. He is unable to ambulate. 1:45 a.m. Patient is still unable to ambulate. 3:15 a.m. Patient is now more awake. He has ambulated. He will be transferred to the [facility] for supervised detoxification. SUPERVISION: This patient was independently evaluated without direct involvement of or examination by the attending physician. CONSULTATION: - History Smoking Status: Unknown if ever smoked - Objective Vital Signs: Initial Vital Signs Temperature (C) 98.1 F 01/24/18 21:10 Heart Rate 70 01/24/18 21:10 Respiratory Rate 16 01/24/18 21:10 Blood Pressure 108/57 L 01/24/18 21:10 O2 Sat (%) 85 L 01/24/18 21:10 O2 Delivery Mode Nasal Cannula O2 (L/minute) 2 Allergies/Adverse Reactions: Penicillins Allergy (Verified 11/24/17 12:27) Home Medications: Medication Instructions Recorded NK [No Known Home Meds] 10/14/17 NK [No Known Home Meds] 01/16/18 Departure - Departure Disposition: Law Enforcement/Court/Detention Clinical Impression: Alcohol dependence Qualifiers: Substance use status: uncomplicated Qualified Code(s): F10.20 - Alcohol dependence, uncomplicated Acute alcohol intoxication Qualifiers: Complication of substance-induced condition: uncomplicated Qualified Code(s): F10.929 - Alcohol use, unspecified with intoxication, unspecified Condition: Good Instructions: Alcohol Intoxication (ED), Abuse of Alcohol (ED) Additional Instructions: 1. Contact primary care physician to discuss alcohol cessation Referrals: [facility],. [Clinic] - As per Instructions [facility] [Outside] - As per Instructions
[2018-01-25 03:35] VITALS: BP 110/65
== END 2018-01-25 03:56 ==
LOC: EDUNIT#
DX: F10.929 Alcohol use, unspecified with intoxication, unspecified (principal); G20 Parkinson's disease

== ENCOUNTER 2018-01-31 19:09 | Inpatient (IN) | payer MEDICAID, OTHER ==
--- NOTE | 2018-01-31 19:18 | EDPHY ---
H & P Source: Patient - Medical/Surgical History Hx Asthma: No Hx Chronic Respiratory Disease: No Hx Diabetes: No Hx Cardiac Disease: No Hx Renal Disease: No Hx Cirrhosis: No Hx Alcoholism: Yes Hx HIV/AIDS: No Hx Splenectomy or Spleen Trauma: No Other PMH: etoh abuse, huntingtons chorea - Social History Smoking Status: Unknown if ever smoked Time Seen by Provider: 01/31/18 19:17 HPI/ROS: CHIEF COMPLAINT: Suicidal HISTORY OF PRESENT ILLNESS: The patient presents to the ED with suicidal thoughts. His plan was to jump into a cold like this evening. 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 The patient has been hospitalized in the past before. He does have a prior history of suicide attempt by jumping in front of another vehicle. The patient does report drinking alcohol earlier today. The patient denies any substance abuse. Patient denies any acute medical complaints aside from involuntary muscle movements from his neurologic disease. REVIEW OF SYSTEMS: A comprehensive 10 point review of systems is otherwise negative aside from elements mentioned in the history of present illness. (Juan Alberto Crook) - Physical Exam Exam: General Appearance: Disheveled Eyes: Pupils equal and round no pallor or injection ENT, Mouth: Mucous membranes moist Respiratory: There are no retractions, lungs are clear to auscultation Cardiovascular: Regular rate and rhythm Gastrointestinal: Abdomen is soft and nontender, no masses, bowel sounds normal Neurological: A&O, normal motor function, normal sensory exam, normal cranial nerves Skin: Warm and dry, no rashes Musculoskeletal: Neck is supple nontender Extremities: symmetrical, full range of motion Psychiatric: Patient is oriented X 3, there is no agitation, endorses depression, endorses suicidal ideation (Juan Alberto Crook) Constitutional: Initial Vital Signs Temperature (C) 36.8 C 01/31/18 19:46 Heart Rate 103 H 01/31/18 19:46 Respiratory Rate 20 01/31/18 19:46 Blood Pressure 115/82 H 01/31/18 19:46 O2 Sat (%) 89 L 01/31/18 19:46 O2 Delivery Mode Room Air Allergies/Adverse Reactions: Penicillins Allergy (Verified 01/31/18 20:45) Home Medications: Medication Instructions Recorded NK [No Known Home Meds] 10/14/17 Medical Decision Making ED Course/Re-evaluation: The patient has been medically cleared for psychiatric evaluation which is pending at 10:30 p.m.. The patient will be turned over to Dr. Roberson at shift change. (Juan Alberto Crook) I assumed care of this patient at 7:00 a.m.. Has been seen by mental health, plan for inpatient disposition. Accepted to [address] [place] [address] Abbott[address] EMTALA completed. (Candace Villarreal) Differential Diagnosis: Differential diagnosis considered includes alcohol intoxication, suicidal ideation, psychosis (Juan Alberto Crook) - Data Points Laboratory Results: Laboratory Results 01/31/18 20:00 01/31/18 20:00 Medications Given: Discontinued Medications Thiamine HCl (Vitamin B-1) 100 mg PO ONCE ONE Stop: 02/01/18 13:41 Last Admin: 02/01/18 14:43 Dose: 100 mg Departure - Departure Disposition: [facility] IP Clinical Impression: Suicidal ideation Condition: Good
[2018-01-31 21:06] LABS: PLATELET COUNT 236 10^3/uL (150-400)
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
--- NOTE | 2018-02-01 08:50 | ASMTTCLDSP ---
TLC Discharge Disposition Disposition: Answers: Admit Discharge Concerns/Recommendations: Notes: In consultation with [facility] ED physician, Jayden Lozano on-call psychiatrist, Dr Scar MD , both concurred that Pt does appear to meet 27-65 criteria requiring psychiatric hospitalization as Pt does appear to be an imminent risk of harm to self due to a mental illness condition. Was patient given the Answers: Yes Inpatient Behavioral Health Prohibited Belongings List while in the ED? For inpatient Dr Abbott admission, the following psychiatrist agreed to accept patient for admission to Behavioral Health ([facility]): Type of Hold: Answers: M1/72-hour Hold Hold initiated by: Answers: Police Date Signed: 02/01/2018 08:49 AM Electronically Signed By:Stephani Haynes
--- NOTE | 2018-02-01 13:24 | ASMTBHMTP ---
Master Treatment Plan Master Treatment Plan Answers: Depressed Mood with for: Suicidal Ideation Date: 02/01/2018 Diagnosis on Admission: Alcohol Use Disorder Severe 303.90 Expected length of stay: 3-5 Days Reason for admission: Notes: Per TLC Evaluation - Pt. is a 52 year old male, homeless, never , with no children presenting to the ER via EMS on an M1 hold placed by police. Pt. reportedly was screaming for help and to call 911. Pt. told police he was going to jump in a gabriel or jump in front of a car to kill himself. Per M1 hold "The respondent was screaming for help and to call 911. Upon contact he said he was going to jump in the gabriel or in front of a car to kill himself. 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 Per ED report - "The patient presents to the ED with suicidal thoughts. His plan was to jump into a cold gabriel this evening. 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 The patient has been hospitalized in the past before. He does have a prior history of suicidal attempt by jumping in front of another vehicle. The patient does report drinking alcohol earlier today. The patient denies any substance abuse. Patient denies any acute medical complaint aside from involuntary muscle movements from hi neurologic disease. Patient's stated presenting problems: Notes: Pt stated he was "thinking about jumping in a gabriel", adding "Moose's is killing me". Patient's goals for treatment: Notes: "To feel better" Patient's strengths: Notes: Pt. stated "none", adding "haven't found any". Identify supports outside of hospital: Notes: "No body" Discharge criteria: Notes: Suicidal ideation will resolve and patient will have a plan to safely manage recurrent suicidal ideation. Initial disposition plan/considerations: Notes: "Long-Term" in [place] Master Treatment Plan Required Signatures Psychiatrist signature: Answers: Guille Abbott MD: RN on-shift signature: Answers: RN: Patient signature: Answers: Patient: Date Signed: 02/01/2018 01:24 PM Electronically Signed By:Trish Brannon
--- NOTE | 2018-02-01 13:29 | ASMTCMCOM ---
CM Note CM Note Notes: Pt. and CC completed MTP and placed in pt's chart. Pt. stated he doesn't want to attend any groups today, adding he is tired. Pt. denied any current legal issues. Pt. stated he drinks alcohol "everyday" adding he usually drinks a "pint". When asked pt stated he doesn't not think his drinking is a problem. Pt. denied smoking THC and all other substances use. Pt. stated he does not have any current providers. Pt. denied SI. Pt. presents in bed, alert, calm, lacking eye contact, cooperative, and lacking insight into alcohol use. Date Signed: 02/01/2018 01:28 PM Electronically Signed By:Trish Brannon
[2018-02-01] MEDS ORDERED: OLANZapine DISINTEGR 10 MG TAB PO PRN (13:38)
[2018-02-01] MEDS ORDERED: MAG HYDROX/AL HYDROX/SIMETH 30 ML UDCUP PO PRN (13:38)
[2018-02-01] MEDS ORDERED: ACETAMINOPHEN 325 MG TAB PO PRN (13:38)
[2018-02-01] MEDS ORDERED: MAGNESIUM HYDROXIDE 30 ML UDCUP PO PRN (13:38)
[2018-02-01] MEDS ORDERED: NICOTINE POLACRILEX 2 MG GUM B PRN (13:38)
[2018-02-01] MEDS ORDERED: chlordiazePOXIDE 25 MG CAP PO PRN (13:40)
[2018-02-01] MEDS ORDERED: PROMETHAZINE HCL 25 MG SUPPR PR PRN (13:40)
[2018-02-01] MEDS ORDERED: PROMETHAZINE HCL 25 MG TAB PO PRN (13:40)
[2018-02-01] MEDS ORDERED: IBUPROFEN 200 MG TAB PO PRN (13:40)
[2018-02-01] MEDS ORDERED: THIAMINE HCL 100 MG TAB PO ONE (13:40)
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
--- NOTE | 2018-02-01 15:02 | PDMN ---
Medical Necessity Medical necessity: Pt meets INPT criteria per MD as of 02/01/18 and [facility] B-[id number]- IP Substance-Related Disorders, Adult: INPT Care (alcohol use disorder, severe, substance-induced mood disorder, M1 hold).
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
[2018-02-01] MEDS ORDERED: PNEUMOCOCCAL 0.5ML VACCINE VIAL (PNEUMOVAX 23) IM ONE (17:45)
[2018-02-02] MEDS: MULTIVITAMINS 1 EACH TAB PO SCH (08:02)
[2018-02-02] MEDS: FOLIC ACID 1 MG TAB PO SCH (08:02)
[2018-02-02] MEDS: THIAMINE HCL 100 MG TAB PO SCH (08:02)
--- NOTE | 2018-02-02 15:36 | SOAPPROG ---
SOAP Progress Note Assessment/Plan: Assessment: 52 yo homeless man with h/o severe alcohol use disorder and substance induced mood disorder. Records indicate patient has threatened numerous times to walk into traffic in order to gain admission to [facility] hospital. Plan: 02/02/18 15:31 1. Patient denies alcohol related w/d sxs. His vital signs have remained stable. His CIWA scores have been < 2. 2. Patient took shower and put on clean clothes today. 3. Hospitalist diagnosed patient's rash as psoriasis c/w med hx. Patient claims these are "insecticide rooney" from crawling through "tunnels." 4. Patient eating and sleeping well. 5. Patient has refused all meds and outpatient treatment in past. Subjective: Patient took shower and is wearing clean clothes from donations. He denies any w /d sxs. He reports that he is still feeling depressed and having thoughts about not wanting to be alive. He claims that he is not suicidal because of homelessness but because of Wirt's. MD reviewed recent medical records which indicate that during previous hospitalization, patient was seen by neurology and they did not believe his sxs warranted a dx of Wirt's. They concluded his ataxia was d/t alcohol dependence. However, MD can't find the actual neurology consult to confirm this. The hospitalist who saw patient on [facility] felt patient did have choreiform movements c/w Wirt's. Objective: Vital Signs Temp Pulse Resp BP Pulse Ox 36.6 C 82 16 145/65 H 90 L 02/02/18 14:00 02/02/18 14:00 02/02/18 14:00 02/02/18 14:00 02/02/18 14:00 MSE: Affect: Pleasant Mood: "OK" TP: Goal-directed TC: Passive SI, no plan or intent Insight/Judgment: Poor - Time Spent With Patient Time Spent With Patient: 15" - Pending Discharge Pending Discharge Within 24 Hours: No Pending Discharge Within 48 Hours: No ICD10 Worksheet Patient Problems: Problems Problem Status Onset Suicidal ideation Acute Alcohol intoxication Acute Alcohol use disorder, severe, in controlled environment Acute Body lice Acute Cellulitis of finger of right hand Acute Depression Acute Drug-seeking behavior Acute Esophageal foreign body Acute Head injury Acute Homelessness Acute Liver nodule Acute Occipital scalp laceration Acute Psoriasis Acute Rib fractures Acute Suicide attempt Acute
[2018-02-02 17:39] VITALS: BP 121/77
[2018-02-03] MEDS: FOLIC ACID 1 MG TAB PO SCH (08:35)
[2018-02-03] MEDS: THIAMINE HCL 100 MG TAB PO SCH (08:35)
[2018-02-03] MEDS: MULTIVITAMINS 1 EACH TAB PO SCH (08:35)
--- NOTE | 2018-02-03 12:30 | BDS ---
REASON FOR ADMISSION: From the ED note dated 01/31/2018, patient presented to the ED with suicidal thoughts. His plan was to jump into a cold gabriel prior to presenting to the emergency room. 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 The patient has been hospitalized in the past. Patient has a prior history of suicide attempt by jumping in front of a vehicle. Patient did report drinking alcohol prior to presenting to the emergency room. Patient was admitted involuntarily on an M1 hold due to being a danger to himself. Patient was admitted for safety, crisis stabilization, and medication management. ADMITTING DIAGNOSES: 1. Major depressive disorder, severe. 2. Alcohol use disorder, severe. 3. Nicotine dependence. ADMISSION PHYSICAL EXAM: The patient was seen on 02/01/2018, for a hospitalist H and P consult for medical clearance for inpatient psychiatric hospitalization and treatment. Patient was medically cleared for inpatient psychiatric hospitalization and treatment. For further details, please refer to hospitalist 's H and P consult dated 02/01/2018. ADMISSION LABS: 1. CBC from 01/31/2018, within normal limits, except white blood cells were elevated at 12.24. Neutrophils were elevated at 79.3. Lymphocytes were low at 10.9. Eosinophils were low at 0.1. Absolute neutrophils were elevated at 9.72. Absolute monocytes were elevated at 1.06. Absolute eosinophils were low at 0.01. 2. BMP from 01/31/2018, within normal limits, except sodium was low at 131, and carbon dioxide was low at 21. 3. Toxicology screen from 01/31/2018, non-negative for amphetamine, negative for all other substances screened. Ethyl alcohol level was 123. 4. Hemoglobin A1c from 10/11/2017, within normal limits at 5.6. 5. Lipid panel from 10/13/2017, within normal limits, except HDL cholesterol was elevated at 75. 6. Vitamin B12 from 10/12/2017, low at 231. MAJOR PROCEDURES OR TESTS: None. HOSPITAL COURSE: The most prominent symptoms and behaviors while the patient was here were reports of severe depression. Treatment modalities utilized were milieu and group therapy. [facility] protocol was started to monitor alcohol withdrawal symptoms closely. The patient did not show any signs of alcohol withdrawal throughout the course of his hospitalization. Treatment modalities utilized were milieu and group therapy. The patient has improved considerably, with no signs of psychiatric symptoms and no psychiatric symptoms expressed at time of discharge. Patient reports he has improved since admission, states to be in stable condition, feels safe to discharge, and he contracts for safety. Patient's response to treatment was good. There were no adverse or unexpected results of treatment. The patient was safe throughout his stay, active in treatment, engaged in groups, and was appropriate with staff and other patients. The patient met with the treatment team prior to discharge to assess readiness to discharge and review discharge plan. The treatment team consensus is the patient is in stable condition, has a safe discharge plan, and is ready to discharge today. CONDITION ON DISCHARGE: Patient is in stable condition and is no longer a danger to self or others, and is not gravely disabled due to mental illness. Patient is no longer in need of inpatient level of care, and can be safely and effectively treated within the community. The patients level of risk at time of discharge is low. MSE: The patient is casually dressed and with good hygiene , and looks stated age. Patient is sitting, posture is upright, and position is relaxed. Patient appears awake, alert, and responds appropriately and reasonably during interview. Patient is engaged, relates well to interviewer, and emotional facial expression is appropriate to situation and changes appropriately with topic. Patient is cooperative, makes comfortable eye contact , and movements are voluntary, deliberate, coordinated, and smooth and even with no inappropriate movements. Patient makes laryngeal sounds effortlessly and shares conversation appropriately; pace of conversation is appropriate, and stream of talking is fluent; articulation is clear and understandable; word choice is effortless and appropriate for education level; completes sentences, occasionally pausing to think; rate and volume are appropriate for interview and setting. Patient reports mood as euthymic. Patients affect is stable with full variable range, congruent with mood, and appropriate to speech and circumstances. Patient has linear and logical thinking, with no loose associations, tangential thought, thought blocking, concrete thinking, or any other signs of formal thought disorder. Patient denies suicidal and homicidal ideation, and denies hallucinations and delusions. Patient appears to be a reliable historian with sound judgement and good insight into current condition. Patient has no apparent dysfunction in recent or remote memory noted , and no evidence of gross cognitive dysfunction noted at any point during the interview. DISCHARGE DIAGNOSES: 1. Major depressive disorder, severe. 2. Alcohol use disorder, severe. 3. Nicotine dependence. CURRENT MEDICATIONS: Patient is prescribed no psychotropic medications at time of discharge. Patient reports he plans to follow up with [facility] for ongoing medication evaluation and treatment. DISPOSITION: Patient left the hospital independently and voluntarily with plans to follow up at [facility] for ongoing treatment and to stay at the homeless prison in [place]. FOLLOWUP: clinical pharmacy coordinator reports the appropriate outpatient follow-up services have been established and outpatient appointments have been scheduled. The patient received written instructions with times and dates of outpatient follow-up appointments. The following follow-up recommendations were provided to the patient at discharge: Continue psychotropic medications as prescribed and attend appointments as scheduled. Report any side effects to a psychiatric outpatient provider, a primary care provider, or other health rental boats caretaker. Address any questions or problems concerning the psychotropic medications with a psychiatric outpatient provider, a primary care provider, or other health rental boats caretaker. Contact [facility] or [facility], or go to the nearest emergency room, if you are ever a danger to yourself/others, or unable to care for yourself. As soon as possible, establish a routine medication management treatment with a psychiatric provider, establish routine therapy appointments, and follow-up with a primary care provider. SUBSTANCE ABUSE BRIEF INTERVENTION: Brief intervention regarding the risks of alcohol and nicotine abuse is provided to patient with goal to reduce the risk of harm that could result from the continued use of alcohol and nicotine, with the general aim to investigate the problem, raise awareness of problem, develop a solution with the patient, recommend a specific change or activity, and motivate the patient toward change. Assess substance abuse behavior and give supportive advice about harm reduction, recommend a reduction in hazardous/at- risk consumption patterns, and facilitate referrals for additional specialized treatment with emergency care tech. Intermediate goal is for the patient to quit and attend outpatient substance abuse treatment. Intervention focus on intermediate goals to allow for more immediate success in the treatment process to keep the patient motivated. Review following with patient: Alcohol/Binge Drinking risks: short-term: injuries, violence, alcohol poisoning, risky sexual behaviors. Long-term: high blood pressure, stroke, liver disease, digestive problems, cancer, learning and memory problems, depression and anxiety, social problems, and alcohol dependence. Nicotine dependence: lung cancer, other cancers, heart and circulatory system problems, diabetes, eye problems, infertility and impotence, more prone to respiratory infections, weakened senses , teeth and gum disease, premature aging, second hand smoke. Withdrawal symptoms include strong cravings, anxiety, irritability, restlessness, difficulty concentrating, depressed mood, frustration, anger, increased hunger, insomnia, and constipation or diarrhea. OUTPATIENT SUBSTANCE ABUSE TREATMENT: Patient referred to outpatient provider and treatment for continued treatment related to substance abuse. LEGAL COURSE: The patient was admitted on an M1 hold for involuntary inpatient psychiatric hospitalization. Patient discharged today independently and voluntarily. ATTITUDE AT TIME OF DISCHARGE: The patients attitude was positive at time of discharge, and patient reports looking forward to discharging today. The patient reports he feels safe to discharge, is no longer a danger to himself or others, is in stable condition, and contracts for safety. Patient states he will continue medications as prescribed, and establish medication management treatment with an outpatient provider after discharge. Patient reports he understands the information that has been provided to him, and he understands, accepts, and agrees to psychotropic medications. Patient describes internal protective factors as the coping skills he has learned while hospitalized here, and he plans to continue to practice these coping skills after discharge. LABS AND STUDIES: There were no pending labs or studies at time of discharge. ADVANCE DIRECTIVES: There were no advance directives on file, and patient was full code during this hospitalization. /[id number]/[id number]
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
== END 2018-02-03 13:10 | disposition home or self-care (01) | DRG 754 ==
LOC: BBEH 02-01 10:25
PROVIDERS: ADMIT Psychiatry & Neurology Psychiatry; ATTEND Psychiatry & Neurology Psychiatry
DX: F32.9 Major depressive disorder, single episode, unspecified (principal); R45.851 Suicidal ideations; F10.20 Alcohol dependence, uncomplicated; G89.4 Chronic pain syndrome; F17.210 Nicotine dependence, cigarettes, uncomplicated; Z87.820 Personal history of traumatic brain injury; Z59.0 Homelessness; Z76.5 Malingerer [conscious simulation]; Z91.5 Personal history of self-harm
CPT/HCPCS: 80305; G0008; G0009; G0480

== ENCOUNTER 2018-02-18 22:39 | Inpatient (IN) | payer MEDICAID ==
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
[2018-02-18] MEDS ORDERED: NS 1,000 ML IV ONE (23:19)
[2018-02-18 23:54] LABS: PLATELET COUNT 281 10^3/uL (150-400)
[2018-02-19] MEDS ORDERED: ACETAMINOPHEN 500 MG TAB PO ONE (01:01)
[2018-02-19] MEDS ORDERED: ONDANSETRON 4 MG/2 ML VIAL IVP PRN (01:59)
[2018-02-19] MEDS ORDERED: ONDANSETRON DISINTEGRATING 4 MG TAB PO PRN (01:59)
[2018-02-19] MEDS ORDERED: ACETAMINOPHEN 325 MG TAB PO PRN (01:59)
[2018-02-19] MEDS ORDERED: NS 1,000 ML IV SCH (02:00)
[2018-02-19] MEDS ORDERED: D50W 25 GM/50 ML SYR IVP PRN (03:16)
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
[2018-02-19] MEDS ORDERED: VANCOMYCIN 1.5 GM in NS 250 ML IV SCH (04:30)
[2018-02-19] MEDS: LORazepam 2 MG/ML INJ IVP PRN ×2 (04:53→21:47)
[2018-02-19] MEDS: VANCOMYCIN 1.5 GM in D5W 250 ML IV SCH ×2 (04:57→17:15)
[2018-02-19 05:02] LABS: PLATELET COUNT 248 10^3/uL (150-400)
--- NOTE | 2018-02-19 05:20 | GCON ---
HISTORY OF PRESENT ILLNESS: The patient is a pleasant, 53-year-old, right-hand- dominant male with a history of left knee pain, who [facility] with a two-day history of atraumatic left knee pain. He states he had pain during ambulation and with range of motion of the knee. He does not recall any inciting injury. Upon presentation to the ED, he was tachycardic and hypertensive, but afebrile. He is a chronic alcohol user and reports only drinking a shot today. The patient has a history of psoriasis, and bilateral lower extremities are covered with psoriatic lesions. No h/o gout that he is aware of or previous similar instance. Has a h/o bilateral peripheral neuropathy in bilateral feet with no specific dermatomal pattern. Past medical history pertinent for MRSA. He denies any fever, chills, worsening change in heat or color of the extremity , worsening change in range of motion or strength distally. N.p.o. Status: The patient has been n.p.o. since his arrival to the ED. PAST MEDICAL HISTORY: Pertinent for chronic alcohol abuse, [place] disease, psoriasis, history of MRSA. PAST SURGICAL HISTORY: Pertinent for left hand I and D in 2018 and then additionally, patient's pertinent history of appendectomy (date unknown) and a cervical fusion in 2014. There were no problems with bleeding or anesthesia at that time. SOCIAL HISTORY: Patient is homeless. He abuses alcohol. He denies any recreational drug use at this time, though his labs suggest otherwise. Patient is full code and able to make his own medical decisions. FAMILY HISTORY: He denies any history of blood clots, bleeding disorders, CVD. Father with Huntingtons. Mother of pancreatic cancer. HOME MEDICATIONS: He takes folic acid, ibuprofen as needed, a multivitamin, and nicotine patch and then vitamin B1 as well as Tylenol as needed. ALLERGIES: Penicillin. REVIEW OF SYSTEMS: Otherwise, 10point review of systems is negative except for stated above. PHYSICAL EXAMINATION: VITAL SIGNS: Upon presentation to the ED, he was afebrile at 36.4 degrees. He had an increased heart rate of 105, mild increased respirations of 20, hypertensive at 147/102, and patient was at 88% oxygen, given 2 L of oxygen. GENERAL: Patient is alert and oriented, able to respond appropriately to questions, in mild distress. HEENT: Normocephalic, atraumatic. EOMs intact. Moist buccal mucosa. Patent nares. Hearing intact. NECK: No lymphadenopathy. Full AROM and TTP. Negative Lhermitte. Negative Spurling B/L. CV: Nonlabored breathing. No diaphoresis. MUSCULOSKELETAL: Focalized Exam of Bilateral Lower Extremities: There is 1+ nonpitting edema present to the prepatellar region of his left knee. No signs of fluctuance. There are multiple psoriatic lesions present over his bilateral shins with mild excoriation noted. Skin is otherwise intact. There is mild calor present to the prepatellar region of his left knee. Otherwise, no erythema, edema, ecchymosis, or calor noted. No effusion noted. AROM of left knee: 0-90, 0-145 passively without pain to the patient. TTP over prepatellar region, otherwise mild medial and lateral JLT and otherwise NTTP throughout. Negative anterior/posterior, valgus/varus stress test B/L. Positive left knee Erick at max flexion for pain. Positive left knee bounce. All ligaments intact. DNVI B/L with gross sensation diminished to bilateral feet, in no specific dermatomal pattern, compared to gross sensation elsewhere in the extremity. Calves soft, supple, NTTP B/L with negative bilateral Homans. Patient's toes appear to have a fungal etiology to his nailbeds with ecchymosis noted to left foot great toe. CHARLIE hose and SCDs are not yet on the patient. Negative passive stretch B/L. All compartments soft. SKIN: Multiple excoriated psoriatic plaques present on his bilateral shins as well as bilateral elbows and across his abdomen. NEURO: Patient is alert, oriented, able to respond appropriately to questions, in mild distress. Secondary survey is negative except for as stated above. X-RAYS: Three views of the patient's left knee show [id number] DJD both medial and lateral with no fractures, malalignments, or deformities noted. MRI taken of left knee shows a small joint effusion and prepatellar bursitis as well as a medial meniscus tear. LABORATORIES: WBC 12.12 10^3/uL (3.80-9.50) H 02/18/18 23:42 Hgb 12.6 g/dL (13.7-17.5) L 02/18/18 23:42 Hct 37.8 % (40.0-51.0) L 02/18/18 23:42 Neut % (Auto) 88.4 % (39.3-74.2) H 02/18/18 23:42 Lymph % (Auto) 5.0 % (15.0-45.0) L 02/18/18 23:42 Eos % (Auto) 0.1 % (0.6-7.6) L 02/18/18 23:42 Baso % (Auto) 0.2 % (0.3-1.7) L 02/18/18 23:42 Absolute Neuts (auto) 10.70 10^3/uL (1.70-6.50) H 02/18/18 23:42 Absolute Lymphs (auto) 0.61 10^3/uL (1.00-3.00) L 02/18/18 23:42 Absolute Eos (auto) 0.01 10^3/uL (0.03-0.40) L 02/18/18 23:42 ESR 32 MM/HR (0-20) H 02/18/18 23:42 Sodium 131 mEq/L (135-145) L 02/18/18 23:42 Carbon Dioxide 20 mEq/l (22-31) L 02/18/18 23:42 Creatinine 0.6 mg/dL (0.7-1.3) L 02/18/18 23:42 Glucose 122 mg/dL (70-100) H 02/18/18 23:42 C-Reactive Protein 60.0 mg/L (<10.0) H 02/18/18 23:42 Ethyl Alcohol 19 mg/dL (0-10) H 02/18/18 23:42 Patient does have a previous history of diagnosed left hand MRSA. Additionally , patient upon presentation had increased ethyl alcohol of 19 as well as a positive amphetamine screen. ASSESSMENT: Left knee prepatellar bursitis, aspirate will be taken. PLAN: At this time, patient's physical exam findings and x-rays and imaging were explained at length. We have recommended aspiration of the prepatellar region for further evaluation. Please see procedure note below. Additionally, patient was bandaged, will be placed in a knee immobilizer. Rest, ice, ice massage, elevation of the extremity are encouraged. NWB at this time. Recommend CHARLIE hose and SCDs for DVT prophylaxis. Maintain n.p.o. status. Lab cultures have been sent, and we will await surgical decision pending lab results. Patient is admitted to hospitalists and we will continue plan per hospitalists. Advised to watch for any worsening pain, abnormal numbness or tingling, worsening change in heat or color of the extremity, fever, chills, and to seek immediate medical attention if seen. PROCEDURE NOTE: After verbalized consent, patient's left knee was sterilely prepped, and a 1:1 mixture of lidocaine and bupivacaine was sterilely injected into the injection track of the prepatellar region. I found an area where there was no erythema or calor and at that time, inserted an 18-gauge needle into the bursa. At that time, 10 cc of straw-colored fluid with mild sanguine was extracted from the joint. No signs of obvious purulence. At this time, patient was bandaged. He tolerated the procedure well. We will send that for stat culture/sensitivity, aerobic, anaerobic, fungal, stat Gram stain at this time. Patient was seen and discussed in conjunction with Dr. Stephens. /[id number]/MODL MTDD
[2018-02-19] MEDS ORDERED: INSULIN LISPRO 100 UNIT/ML SC SCH (08:00)
[2018-02-19] MEDS ORDERED: ceFAZolin 2 GM/DEXTROSE 100 ML IV ONE (08:49)
[2018-02-19] MEDS ORDERED: LR 1,000 ML IV SCH (09:00)
[2018-02-19] MEDS ORDERED: BUPIVACAINE 0.5% 30 ML SDV ONE (10:39)
[2018-02-19] MEDS ORDERED: BACITRACIN 50,000 UNITS/10 ML SYR IRR ONE (10:39)
--- NOTE | 2018-02-19 10:41 | PDANEPAE ---
ANE History of Present Illness here for L knee I&D ANE Past Medical History - Pulmonary History Hx Oxygen in Use at Home: No Hx Sleep Apnea: No Sleep Apnea Screening Result - Last Documented: Negative - Endocrine History Hx Diabetes: No - Chronic Pain History Chronic Pain: Yes ANE Review of Systems Review of Systems: ANE Patient History - Allergies Allergies/Adverse Reactions: Penicillins Allergy (Verified 01/31/18 20:45) - NPO status NPO Since - Liquids (Date): 02/18/18 NPO Since - Liquids (Time): 20:00 NPO Since - Solids (Date): 02/18/18 NPO Since - Solids (Time): 20:00 - Smoking Hx Smoking Status: Current every day smoker - Alcohol Use Alcohol Use: Heavy ANE Labs/Vital Signs - Labs Result Diagrams: 02/19/18 04:42 02/19/18 04:42 - Vital Signs Blood Pressure: 133/66 Heart Rate: 90 Respiratory Rate: 25 O2 Sat (%): 93 Height: 182.88 cm Weight: 96.1 kg ANE Physical Exam - Airway Neck exam: decreased ROM Mallampati Score: Class 3 Mouth exam: poor dentition - Pulmonary Pulmonary: no respiratory distress - Cardiovascular Cardiovascular: regular rate and rhythym - ASA Status ASA Status: III, E (Homeless and poor historian, EtOH abuse, daily <48 hours since last drink) ANE Anesthesia Plan Anesthesia Plan: general endotracheal anesthesia Total IV Anesthesia: No
[2018-02-19] MEDS ORDERED: MIDAZOLAM 2 MG/2 ML VIAL IVP ONE (10:42)
[2018-02-19] MEDS ORDERED: LR 1,000 ML IV ONE (10:48)
[2018-02-19] MEDS ORDERED: LIDOCAINE 2% 5 ML SDV ONE (10:56)
[2018-02-19] MEDS ORDERED: PROPOFOL 200 MG/20 ML VIAL ONE (10:56)
[2018-02-19] MEDS ORDERED: ROCURONIUM 50 MG/5 ML VIAL ONE (10:56)
[2018-02-19] MEDS ORDERED: fentaNYL 250 MCG/5 ML INJ ONE (10:56)
--- NOTE | 2018-02-19 11:22 | PDMN ---
Medical Necessity Medical necessity: [facility] M160 Sepsis A-3 days: 53 yo presents w/ severe L knee pain and swelling, concern for infected bursitis, Knee aspirated, cultures pending. Cover w/ vanco given hx MRSA and current fever. Pt meets sepsis criteria w/ leukocytosis, tachycardia, tachypnea and fever. Pt also has cough, + RSV. Pt requiring O2 to keep sats >90%. Unsure if sepsis coming from knee vs resp. Surgery consulted and knee bursectomy. I&D planned for later today. Admit to IP status for further evaluation and tx of knee pain, surgery and respiratory status. Anticipate greater than 2 midnight stay. Meets [facility] IP criteria for sepsis ongoing tachypneac and new hypoxemia. Hx etoh dependence, homeless, MRSA, psoriasis and [place]
[2018-02-19] MEDS ORDERED: MIDAZOLAM 2 MG/2 ML VIAL ONE (11:31)
[2018-02-19] MEDS ORDERED: ALBUTEROL 3 ML DEYVIAL ONE (12:31)
[2018-02-19] MEDS ORDERED: PROMETHAZINE HCL 25 MG/ML INJ IVP PRN (12:34)
[2018-02-19] MEDS ORDERED: MEPERIDINE 25 MG/0.5 ML AMP IVP PRN (12:34)
[2018-02-19] MEDS ORDERED: LABETALOL HCL 5 MG/ML 20 ML MDV IVP PRN (12:34)
[2018-02-19] MEDS ORDERED: NALOXONE HCL 0.4 MG/ML INJ IVP PRN (12:34)
[2018-02-19] MEDS ORDERED: ALBUTEROL 3 ML DEYVIAL IH PRN (12:34)
[2018-02-19] MEDS ORDERED: DIAZEPAM 5 MG/ML 1 ML SYR IVP PRN (12:34)
[2018-02-19] MEDS ORDERED: fentaNYL 100 MCG/2 ML INJ IVP PRN (12:34)
[2018-02-19] MEDS ORDERED: HYDROmorphONE/DILAUDID 2 MG/ML INJ IVP PRN (12:34)
[2018-02-19] MEDS ORDERED: LR 500 ML IV PRN (12:34)
[2018-02-19] MEDS ORDERED: oxyCODONE IR 5 MG TAB PO PRN (12:34)
--- NOTE | 2018-02-19 12:38 | POSTANESTH ---
Post Anesthetic Evaluation Cardiovascular Status: Normal, Stable Respiratory Status: Other, See Comment (RSV PNA caused bronchospasm on extubation treated with duonebs, O2. Pt aggitated on arrival to PACU, improved with medication and reassurance and time)
--- NOTE | 2018-02-19 12:42 | POSTOPPROG ---
Post Op Note Date of Operation: 02/19/18 Surgeon: José Stephens Anesthesiologist: Doretha Anesthesia: GET(General Endotracheal) Pre-op Diagnosis: L knee pre-patellar septic bursitis Post-op Diagnosis: same Procedure: I&D L knee Inf/Abcess present in the surg proc area at time of surgery?: Yes Depth: Deep Incisional (Fascial) EBL: Minimal (30cc) Complications: None Drains: Salty Simmons
[2018-02-19] MEDS ORDERED: DIAZEPAM 5 MG/ML 1 ML SYR ONE (12:43)
--- NOTE | 2018-02-19 13:12 | GOP ---
DATE OF OPERATION: 02/19/2018 SURGEON: José Stephens MD RUG SIZER: None. ANESTHESIA: General with Laura Coyne DO PREOPERATIVE DIAGNOSIS: Left knee prepatellar septic bursitis. POSTOPERATIVE DIAGNOSIS: Left knee prepatellar septic bursitis. PROCEDURE PERFORMED: Incision, irrigation, drainage and debridement of left knee prepatellar septic bursitis with bursectomy. FINDINGS: No obvious malena purulence within the prepatellar bursa, though there was fluid present. There was bursitis within the prepatellar bursa. The remainder of the area was consistent overall wi th infection. No signs of effusion or extension of the knee joint. Preoperatively, the patient's kn ee ROM with gentle passive assistance was at least 0-120. SPECIMENS: Tissue culture as well as a swab was sent prior to the irrigation. ESTIMATED BLOOD LOSS: 30 cc. INDICATIONS: This is a 53-year-old homeless man who presented to the ER early this morning with left knee findings concerning for infection. He was evaluated and an aspirate of the bursa was found to be positive for gram-positive cocci and approximately 24,000 white cells. Given the above, I and D w as recommended. The risks, benefits, alternatives were discussed with the patient. Please see histo ry and physical for additional information. He provided a signed witnessed informed consent which wa s placed in his chart. DESCRIPTION OF PROCEDURE: PROCEDURE: The patient was identified in the preop holding area and his left knee was signed as the designated operative site. Right lower extremity was not placed in the CHARLIE hose or SCDs due to sever e excoriations and open wounds throughout the right lower leg. The patient was brought back to the o perating room, placed supine on the OR table and general anesthesia was obtained. The left leg was wrapped proximally with cast padding and a nonsterile tourniquet and then prepped an d draped in the usual sterile manner. No tourniquet was inflated during the surgery. A 3 cm incision was placed directly over the prepatel lar bursa and superior to the excoriated skin and plaque areas. The skin incision was anesthetized w ith 0.25% Marcaine with epinephrine prior to incision. Once the incision was made, careful spreading was used to spread the tissues down to the level of the infected bursal space. A swab, as well as b ursal cultures, tissue cultures were sent. Trice emersongeur and curette were used to perform bursectomy. T he extent of the bursa was palpated with both suction device as well as debrided in order to break up any adhesions. The bursal area was then irrigated with a total of 3 L of normal saline with bacitra sanna. After the area was appropriately irrigated and debrided, a small Salty-Simmons drain was placed out a separate stab incision using a trocar and a drain was placed in the bursa. The wound was then closed in layers. 2-0 Monocryl was used to close the deep dermal layer. The skin was closed with multiple interrupted 3-0 nylon horizontal mattress sutures. The drain was sewed in place. Standard sterile postoperative surgical dressings were applied. A knee immobilizer was applied. The leg was wrapped with an Michael b andage from the toes up to the thigh. The anesthesia service then took over to wake the patient up. TOURNIQUET TIME: None. DRAINS: One ISAIAS drain. IMPLANTS: None. COMPLICATIONS: None. DISPOSITION: The patient was extubated and transferred to PACU in stable condition. /[id number]/MODL
--- NOTE | 2018-02-19 13:45 | ASMTCMCOM ---
CM Note CM Note Notes: Spoke with pt's RN and conducted chart review. Pt admitted for septic arthritis of knee and will have surgical I&D of that knee today. Pt has hx of Mchenry's, ETOH dependence, several admissions for suicide ideation and is homeless. Pt has been refused from many SNFs in the past, see CM note dated 06/11/17. PT and OT have not yet evaluated. Pt likely needing CC case management; management notified. Pt requested RN "find his electric WC" which he states he left at [facility]. Saroj from called to confirm and he will get back to CM. CM to follow. D/C Plan: TBD Date Signed: 02/19/2018 01:44 PM Electronically Signed By:Karie August
[2018-02-19] MEDS: HYDROCODONE/APAP 5/325 TAB PO PRN ×4 (14:01→23:56)
--- NOTE | 2018-02-19 14:33 | ASMTCMCOM ---
CM Note CM Note Notes: Saroj with [facility] reports pt lived at [facility] one year and d/c from September 2016. Pt was independent with ADLs while there and had no electric wc. Date Signed: 02/19/2018 02:33 PM Electronically Signed By:MARYJANE Zaman
--- NOTE | 2018-02-19 15:25 | HOSPPROG ---
Hospitalist Progress Note Assessment/Plan: #Left knee pain - bursa fluid with GPC, spoke with ortho who took patient to OR for washout. On vancomycin. will consult ID and continue vancomycin. RSV- patient tested positive for RSV. requiring 3 liters currently. supportive care. nebs, oxygen PRN #Hyponatremia - likely secondary to hypovolemia as he looks dry, getting IV saline. recheck in am #Anemia - patient has a history of intermittent anemia. Is normocytic. Likely anemia of chronic disease with history of alcohol dependence. Continue to monitor. No evidence of active bleeding. #Alcohol dependence - patient's tachycardia has improved since admission in the 80s to 90s. Blood pressures are acceptable. Monitor CIWA scores. Last drink was earlier today was 1 shot. high risk for withdrawal. 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 Supportive care. Fluid- Saline Lytes- low Na Nutrition- Advance diet after surgery Cor- Full Dispo- inpatient or septic bursitis. Subjective: patient with knee pain. Objective: Vital Signs Temp Pulse Resp BP Pulse Ox 36.4 C 76 19 110/65 92 02/19/18 14:53 02/19/18 14:53 02/19/18 14:53 02/19/18 14:53 02/19/18 14:53 Microbiology 02/19/18 11:56 Gram Stain - Final Knee - Eswab 02/19/18 11:56 Gram Stain - Final Knee - Tissue 02/19/18 11:56 Mycobacterial Smear (LEYLA) - Final Knee - Eswab Mycobacterial Culture - Final 02/19/18 03:45 Gram Stain - Final Synovial Fluid - Aspirate 02/19/18 03:45 Gram Stain - Final Knee - Aspirate Wound Culture - Final Laboratory Results 02/19/18 04:42 02/19/18 04:42 02/18/18 02/19/18 02/20/18 05:59 05:59 05:59 Intake Total 0 910 Output Total 450 360 Balance -450 550 - Physical Exam Constitutional: no apparent distress, appears nourished, not in pain Eyes: PERRL, anicteric sclera, EOMI Ears, Nose, Mouth, Throat: moist mucous membranes, hearing normal, ears appear normal, no oral mucosal ulcers Cardiovascular: regular rate and rhythym, no murmur, rub, or gallop Respiratory: no respiratory distress, expiratory wheeze, inspiratory crackles, bronchial breath sounds Gastrointestinal: normoactive bowel sounds, soft, non-tender abdomen, no palpable masses Genitourinary: no bladder fullness, no bladder tenderness, no renal bruits Skin: no induration, rash, other (psoriasis on knees and elbows. ) Musculoskeletal: full muscle strength, no muscle tenderness, normal joint ROM, joint tenderness, other (swollen left knee) Neurologic: AAOx3, sensation intact bilaterally Psychiatric: interacting appropriately, not anxious, not encephalopathic, thought process linear Lymph, Heme, Immunologic: no cervical LAD, no supraclavicular LAD ICD10 Worksheet Patient Problems: Problems Problem Status Onset Septic arthritis Acute Alcohol intoxication Acute Alcohol use disorder, severe, in controlled environment Acute Body lice Acute Cellulitis of finger of right hand Acute Drug-seeking behavior Acute Esophageal foreign body Acute Head injury Acute Homelessness Acute Liver nodule Acute Nicotine dependence Acute Occipital scalp laceration Acute Psoriasis Acute Rib fractures Acute Suicidal ideation Acute Suicide attempt Acute Depression Chronic
[2018-02-20] MEDS ORDERED: BENZONATATE 100 MG CAP PO PRN (00:49)
[2018-02-20] MEDS: GUAIFENESIN/DM 10 ML UDCUP PO PRN ×2 (01:04→09:15)
[2018-02-20] MEDS: VANCOMYCIN 1.5 GM in D5W 250 ML IV SCH (03:59)
[2018-02-20] MEDS: HYDROCODONE/APAP 5/325 TAB PO PRN ×2 (05:05→09:15)
[2018-02-20 08:52] LABS: PLATELET COUNT 275 10^3/uL (150-400)
--- NOTE | 2018-02-20 11:22 | PDCONSULT ---
Residential Property Manager Note: A/P # Left Pre-patellar septic bursitis with GAS s/p washout. No joint involvement. <24h since surgery left dressing intact for now. Likely portal of infection related to chronic skin condition which appears to be most likely psoriasis. Elevated WBC likely related to infection --dc vancomycin --start more directed therapy with Ancef 2 g IV Q 8 due to weight of almost 100kg --await sensi of GAS. Not obligated to IV with pre-patellar bursitis if improves adequately, will await assessment of clinical response. --will continue to monitor WBC # L great toe mild newberry bite: No active infection or need for surgery at this point, monitor clinically # H/o MRSA 08/2017: contact precautions # RSV positive resp PCR, minimal residual respiratory symptoms. Respiratory precautions while hospitalized # Unclear PCN reaction: Extensively discussed, cannot sort out reaction, but denies anaphylaxis. Will try cephalosporin, discussed risks and benefits w patient INFECTIOUS DISEASE CONSULT Chief complaint: L-knee bursitis with Strep pyogenes Grp A MD requesting consult: Dr. Coleman History of present illness: This is a 53 year-old male, with hx of Huntingtons disease, MRSA of R-hand, Etoh dependence, homelessness, and psoriasis, who is seen in consultation for L- knee busitis with Strep pyogenes Grp A beginning 02/17/18 around noon. [facility] the and felt feverish. Subsequently , he presented to the ER on 02/18/2018 with T-max of 39 and found to have L knee swelling and redness, initially knee was aspirated then he underwent washout of the prepatellar bursa with cultures positive for Streptococcus pyogenes. Patient was empirically started on IV vancomycin prior to availability of cultures and with unclear history of penicillin allergy. Reports associated coughing for the past x3 weeks. Denies [id number]. 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 When asked about his PCN allergy rxn unknown but pt does not recall anaphylaxis. PMHx: psychiatric hx with suicidal ideation, Huntingtons disease: began to present itself after 10/29/2010, Psoriasis SHx: appendectomy, cervical spinal fusion Family hx: father with Huntingtons disease, mother with pancreatic cancer Social hx: smokes cigarettes every day, heavy Etoh use, homelessness, denies illicit drug use but drug screens + for Amphetamines. Pt is originally from [place] and has lived in [place] for the past 3 years. 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 Allergies: 3 Allergy/AdvReac Type Severity Reaction Penicillins Allergy unknown unknown Active medications: 3 Generic Name Dose Route Start Last Admin Trade Name Freq PRN Reason Stop Dose Admin Acetaminophen 650 mg 02/19/18 01:59 Tylenol PO 08/18/18 01:58 Q4HRS PRN Pain, Mild/Fever, Can Take PO Albuterol 3 ml 02/20/18 12:00 Proventil Neb IH 08/19/18 11:59 QID ELIZABET Benzonatate 100 mg 02/20/18 00:49 02/20/18 01:04 Tessalon Pearles PO 08/19/18 00:48 100 mg TID PRN Administration Cough, Mild Dextrose 25 gm 02/19/18 03:16 Dextrose 50% Syringe IVP 08/18/18 03:15 PRN PRN Hypoglycemia Guaifenesin/Dextromethorphan 10 ml 02/20/18 00:49 02/20/18 09:15 Robitussin Dm Oral Liquid PO 08/19/18 00:48 10 ml Q4HRS PRN Administration Cough, Moderate Sodium Chloride 1,000 mls @ 125 mls/hr 02/19/18 02:00 02/19/18 04:58 Ns IV 08/18/18 01:59 1,000 mls CONT ELIZABET Administration Vancomycin HCl 1.5 gm/ 250 mls @ 166.667 mls/hr 02/19/18 04:30 02/20/18 03:59 Dextrose IV 03/21/18 04:29 250 mls Q12H ELIZABET Administration Lactated Ringer's 1,000 mls @ 75 mls/hr 02/19/18 09:00 Lr IV 08/18/18 08:59 CONT ELIZABET Lorazepam 0.5 - 1 mg 02/19/18 01:59 02/19/18 21:47 Ativan Injection IVP 08/18/18 01:58 1 mg Q8HRS PRN Administration Spasms Morphine Sulfate 1 - 2 mg 02/19/18 03:28 02/19/18 14:01 Morphine IVP 03/01/18 03:27 2 mg Q2HRS PRN Administration Pain, Breakthrough Ondansetron HCl 4 mg 02/19/18 01:59 Zofran IVP 08/18/18 01:58 Q4HRS PRN Nausea/Vomiting, Can't Take PO Ondansetron HCl 4 mg 02/19/18 01:59 Zofran Odt PO 08/18/18 01:58 Q4HRS PRN Nausea/Vomiting, Use 1st Oxycodone/Acetaminophen 1 - 2 tab 02/20/18 09:37 Percocet 5/325 PO 03/02/18 09:36 Q4HRS PRN Pain, Severe Able to Take PO Vancomycin HCl 1 each 02/19/18 03:45 Vancomycin Pharmacy To Dose, 10-15 Mcg/Ml [facility] [place] 08/18/18 03:44 AD [facility] Protocol ROS: 10 systems were reviewed and negative with the exception of the elements mentioned in the history of present illness. Reports L-knee pain, psoriatic plaques of BUEs and BLEs, and cough. No [id number]-[id number] today. Vitals: 3 Temp Pulse Resp BP Pulse Ox 36.3 C 64 22 H 112/69 92 02/20/18 07:16 02/20/18 07:16 02/20/18 07:16 02/20/18 07:16 02/20/18 07:16 Physical exam: General: Obese, well-developed. Chronically ill appearing. In no distress. HEENT: No scleral icterus or conjunctival injection. Oropharynx shows moist mucous membranes with no thrush. Very poor dentition, obvious loose teeth. Chest: Clear to auscultation bilaterally without adventitious sounds. Respiratory effort is normal. Cardiovascular: Regular rate rhythm with no murmur, gallops or rubs. 2+ dorsalis pedis pulse bilaterally. Abdomen: Soft, nontender, nondistended. Musculoskeletal: No cyanosis, clubbing or edema. LLE: Post-op surgical dressing left in place over L-knee, ISAIAS drain in place with serosanguinous fluid. Left great toe on the plantar aspect purplish in color, with scaly skin c/w frostbite. No cellulitis. Skin: Normal color, no rash. Plaques on his extensor surfaces of forearms and lower legs with a silvery scale c/w with psoriasis. Neurologic: AAOx3, moving all 4 extremities, choreiform movements of the head. Dysarthria, more specifically decreased articulation of words, responding to questions appropriately. Laboratory results: 3 WBC 19.31 10^3/uL (3.80-9.50) H 02/20/18 08:44 RBC 4.38 10^6/uL (4.40-6.38) L 02/20/18 08:44 Hgb 12.6 g/dL (13.7-17.5) L 02/20/18 08:44 Hct 38.7 % (40.0-51.0) L 02/20/18 08:44 MCV 88.4 fL (81.5-99.8) 02/20/18 08:44 MCH 28.8 pg (27.9-34.1) 02/20/18 08:44 MCHC 32.6 g/dL (32.4-36.7) 02/20/18 08:44 RDW 14.2 % (11.5-15.2) 02/20/18 08:44 Plt Count 275 10^3/uL (150-400) 02/20/18 08:44 MPV 9.4 fL (8.7-11.7) 02/20/18 08:44 Neut % (Auto) 91.6 % (39.3-74.2) H 02/20/18 08:44 Lymph % (Auto) 4.7 % (15.0-45.0) L 02/20/18 08:44 [place] % (Auto) 3.0 % (4.5-13.0) L 02/20/18 08:44 Eos % (Auto) 0.0 % (0.6-7.6) L 02/20/18 08:44 Baso % (Auto) 0.2 % (0.3-1.7) L 02/20/18 08:44 Nucleat RBC Rel Count 0.0 % (0.0-0.2) 02/20/18 08:44 Absolute Neuts (auto) 17.71 10^3/uL (1.70-6.50) H 02/20/18 08:44 Absolute Lymphs (auto) 0.90 10^3/uL (1.00-3.00) L 02/20/18 08:44 Absolute Monos (auto) 0.57 10^3/uL (0.30-0.80) 02/20/18 08:44 Absolute Eos (auto) 0.00 10^3/uL (0.03-0.40) L 02/20/18 08:44 Absolute Basos (auto) 0.03 10^3/uL (0.02-0.10) 02/20/18 08:44 Absolute Nucleated RBC 0.00 10^3/uL (0-0.01) 02/20/18 08:44 Immature Gran % 0.5 % (0.0-1.1) 02/20/18 08:44 Immature Gran # 0.10 10^3/uL (0.00-0.10) 02/20/18 08:44 RBC/WBC/PLT Morphology TNP 02/19/18 04:42 Platelet Estimate TNP 02/19/18 04:42 ESR 32 MM/HR (0-20) H 02/18/18 23:42 VBG Lactic Acid 1.0 mmol/L (0.7-2.1) 02/19/18 00:31 Sodium 136 mEq/L (135-145) 02/20/18 04:40 Potassium 4.7 mEq/L (3.5-5.2) 02/20/18 04:40 Chloride 110 mEq/L (97-110) 02/20/18 04:40 Carbon Dioxide 20 mEq/l (22-31) L 02/20/18 04:40 Anion Gap 6 mEq/L (6-14) 02/20/18 04:40 BUN 19 mg/dL (7-23) 02/20/18 04:40 Creatinine 0.7 mg/dL (0.7-1.3) 02/20/18 04:40 Estimated GFR > 60 02/20/18 04:40 Glucose 100 mg/dL (70-100) 02/20/18 04:40 Calcium 9.0 mg/dL (8.5-10.4) 02/20/18 04:40 Total Bilirubin 0.8 mg/dL (0.1-1.4) 02/20/18 04:40 AST 28 IU/L (17-59) 02/20/18 04:40 ALT 27 IU/L (21-72) 02/20/18 04:40 Alkaline Phosphatase 89 IU/L (38-126) 02/20/18 04:40 C-Reactive Protein 60.0 mg/L (<10.0) H 02/18/18 23:42 Total Protein 6.0 g/dL (6.3-8.2) L 02/20/18 04:40 Albumin 3.2 g/dL (3.5-5.0) L 02/20/18 04:40 Fl Pathologist Review Brian MUELLER MD 02/19/18 03:45 Synovial Source SYNOVIAL 02/19/18 03:45 Synovial Color PINK (CLS/PALE YL) H 02/19/18 03:45 Synovial Appearance CLOUDY (CLEAR) H 02/19/18 03:45 Synovial WBC 87869 /mm3 (0-150) H 02/19/18 03:45 Synovial RBC 9839 /mm3 (0-0) H 02/19/18 03:45 Synovial Neutrophils 66 % (0-25) H 02/19/18 03:45 Synovial Lymphocytes 4 % 02/19/18 03:45 Synov Monos/Macrophage 30 % 02/19/18 03:45 Synovial Crystals NONE SEEN (NONE SEEN) 02/19/18 03:45 Ethyl Alcohol 19 mg/dL (0-10) H 02/18/18 23:42 Microbiology: 09/06/17 Finger swab culture grew MRSA and Strep pyogenes Grp A. 02/18/18 Respiratory panel PCR positive for respiratory syncytial virus. 02/19/18 Blood cx (2), NGTD. 02/19/18 L-knee synovial fluid aspirate (was aspirated from bursa as well as cell counts above), cx grew Strep pyogenes; sensi pending 02/19/18 L-Knee swab, gram stain shows 4+ PMNs and rare GPC. Cx GAS Imaging studies: 02/19/18 MRI of L-knee impression: 1) Prepatellar bursitis. 2) Degenerative tear midbody and posterior horn medial meniscus, with small knee joint effusion. Scribe attestation: Iesha Bautista am scribing for, and in the presence of, Patti Meditz, MD I, Patti Frazier MD, personally performed the services described in this documentation, as scribed by Iesha Mckinnon in my presence, and it is both accurate and complete. Greater than 70 minutes spent on this patients care, greater than 50% of time spent counseling, educating, and coordinating care regarding the above mentioned plan.
[2018-02-20] MEDS: ALBUTEROL 3 ML DEYVIAL IH SCH ×3 (12:14→21:48)
--- NOTE | 2018-02-20 13:39 | SOAPPROG ---
SOAP Progress Note Assessment/Plan: Assessment: POD 1 s/p I&D L knee with PP bursectomy. Doing well. Plan: IV abx appropriately changed this AM by ID consult Dr Frazier (thanks), and vanco d/c'd. Continue drain for at least 24H, then will d/c when output appropriate - likely tomorrow. No ROM while drain in place, continue knee immobilizer. WBAT LLE. Assist device prn for OOB ad matthew. PT/OT. Manjit states he has had no Neuro care for his [place]'s. Primary med team may want to consider Neuro consult to establish care, as he notes he has had many recent falls due to his disease, and would like to have some medical care, specifically as it relates to his increasing falls. Please notify me if his knee condition changes. Appreciate the coordinated multi-disciplinary approach. Please call with any questions. 02/20/18 13:33 Subjective: Denies any pain, notes his knee feels "a ton better." He is very pleasant and grateful for his care at [facility]. Objective: Vital Signs Temp Pulse Resp BP Pulse Ox 36.7 C 67 22 H 110/44 L 95 02/20/18 11:44 02/20/18 11:44 02/20/18 11:44 02/20/18 11:44 02/20/18 11:44 Microbiology 02/19/18 11:56 Mycobacterial Smear (LEYLA) - Final Knee - Tissue 02/19/18 11:56 Gram Stain - Final Knee - Eswab 02/19/18 11:56 Mycobacterial Smear (LEYLA) - Final Knee - Eswab Mycobacterial Culture - Final 02/19/18 03:45 Gram Stain - Final Synovial Fluid - Aspirate 02/19/18 11:56 Gram Stain - Final Knee - Tissue 02/19/18 03:45 Gram Stain - Final Knee - Aspirate Wound Culture - Final Laboratory Results 02/20/18 08:44 02/20/18 04:40 02/19/18 02/20/18 02/21/18 05:59 05:59 05:59 Intake Total 0 2810 Output Total 450 2110 150 Balance -450 700 -150 Afeb, VSS. L knee immobilizer in place. Dsgs c/d/i. Compartments soft, no pain with passive stretch. FROM L ankle/foot. No edema, NTTP, neg Liz's BLE. DNVI BLEs. Drain: 10cc since I&D. Micro: +strep pyogenes A. ICD10 Worksheet Patient Problems: Problems Problem Status Onset Septic arthritis Acute Alcohol intoxication Acute Alcohol use disorder, severe, in controlled environment Acute Body lice Acute Cellulitis of finger of right hand Acute Drug-seeking behavior Acute Esophageal foreign body Acute Head injury Acute Homelessness Acute Liver nodule Acute Nicotine dependence Acute Occipital scalp laceration Acute Psoriasis Acute Rib fractures Acute Suicidal ideation Acute Suicide attempt Acute Depression Chronic
--- NOTE | 2018-02-20 13:43 | HOSPPROG ---
Hospitalist Progress Note Assessment/Plan: 53 year old male with homelessness, psoriasis, huntingtons admitted with septic knee. Left knee pain - POD 1 status post washout. Cultures reviewed and are growing Group A strep Pyogenes. I discussed his case with ID who recommends change to ancef and dc vancomycin. -ancef -follow culture data -pain medications -ortho recs, wbat, brace, drain out likely tomorrow -PT/OT RSV- patient tested positive for RSV. requiring 3 liters currently. supportive care. nebs, oxygen PRN Hyponatremia -resolved with IV fluids. tolerating adequate PO now. DC IVF. Anemia - patient has a history of intermittent anemia. Is normocytic. Likely anemia of chronic disease with history of alcohol dependence. Continue to monitor. No evidence of active bleeding. Alcohol dependence - patient's tachycardia has improved since admission in the 80s to 90s. Blood pressures are acceptable. Monitor CIWA scores. Last drink was earlier today was 1 shot. high risk for withdrawal. continue CIWA monitoring [place] disease - positive family history. Supportive care. Fluid- Saline Lytes- low Na Nutrition- Advance diet after surgery Cor- Full Dispo- inpatient or septic bursitis. Subjective: patient feels markedly better. knee still sore, but breathing better , and pain adequately controlled with medications. Objective: Vital Signs Temp Pulse Resp BP Pulse Ox 36.7 C 67 22 H 110/44 L 95 02/20/18 11:44 02/20/18 11:44 02/20/18 11:44 02/20/18 11:44 02/20/18 11:44 Microbiology 02/19/18 11:56 Mycobacterial Smear (LEYLA) - Final Knee - Tissue 02/19/18 11:56 Gram Stain - Final Knee - Eswab 02/19/18 11:56 Mycobacterial Smear (LEYLA) - Final Knee - Eswab Mycobacterial Culture - Final 02/19/18 03:45 Gram Stain - Final Synovial Fluid - Aspirate 02/19/18 11:56 Gram Stain - Final Knee - Tissue 02/19/18 03:45 Gram Stain - Final Knee - Aspirate Wound Culture - Final Laboratory Results 02/20/18 08:44 02/20/18 04:40 02/19/18 02/20/18 02/21/18 05:59 05:59 05:59 Intake Total 0 2810 Output Total 450 2110 150 Balance -450 700 -150 - Physical Exam Constitutional: no apparent distress, appears nourished, not in pain Eyes: PERRL, anicteric sclera, EOMI Ears, Nose, Mouth, Throat: moist mucous membranes, hearing normal, ears appear normal, no oral mucosal ulcers Cardiovascular: regular rate and rhythym, no murmur, rub, or gallop Respiratory: no respiratory distress, reduced air movement, expiratory wheeze Gastrointestinal: normoactive bowel sounds, soft, non-tender abdomen, no palpable masses Genitourinary: no bladder fullness, no bladder tenderness, no renal bruits Skin: no rashes or abrasions, no fluctuance, no induration Musculoskeletal: full muscle strength, no muscle tenderness, normal joint ROM, other (left knee in a brace, drain in place with scant serosanguinous drainage. ) Neurologic: AAOx3, sensation intact bilaterally Psychiatric: interacting appropriately, not anxious, not encephalopathic, thought process linear Lymph, Heme, Immunologic: no cervical LAD, no supraclavicular LAD ICD10 Worksheet Patient Problems: Problems Problem Status Onset Septic arthritis Acute Alcohol intoxication Acute Alcohol use disorder, severe, in controlled environment Acute Body lice Acute Cellulitis of finger of right hand Acute Drug-seeking behavior Acute Esophageal foreign body Acute Head injury Acute Homelessness Acute Liver nodule Acute Nicotine dependence Acute Occipital scalp laceration Acute Psoriasis Acute Rib fractures Acute Suicidal ideation Acute Suicide attempt Acute Depression Chronic
[2018-02-20] MEDS: OXYCODONE/APAP 5/325 TAB PO PRN ×2 (14:23→20:39)
[2018-02-20] MEDS: ceFAZolin 2 GM/DEXTROSE 100 ML IV SCH ×2 (14:24→23:29)
[2018-02-20] MEDS: NICOTINE 14 MG/24 HR PATCH TD SCH (16:35)
[2018-02-20] MEDS: LORazepam 2 MG/ML INJ IVP PRN (23:28)
[2018-02-21] MEDS: ALBUTEROL 3 ML DEYVIAL IH SCH ×4 (06:13→21:21)
[2018-02-21] MEDS: ceFAZolin 2 GM/DEXTROSE 100 ML IV SCH ×3 (06:39→21:18)
[2018-02-21] MEDS: OXYCODONE/APAP 5/325 TAB PO PRN ×3 (06:41→19:45)
[2018-02-21] MEDS: NICOTINE 14 MG/24 HR PATCH TD SCH (08:06)
--- NOTE | 2018-02-21 10:15 | SOAPPROG ---
SOAP Progress Note Assessment/Plan: Assessment: s/p left knee I/D: Overall doing well, pain well controlled this morning however he thinks he needs additional pain meds; he is sitting up in bed at this time eating. I/D has been consulted for positive Strep Pyo A from original knee aspirate. Appreciate their reccs. Plan: Can begin AROM/PROM of left knee now that drain has been removed. WBAT. Can D/C brace. Drain: Was removed by myself; patient tolerated procedure well. WBAT to LLE. Case Management: Spoke to CM yesterday requesting patient be set up with PCP, possible outpatient neuro consult for his Moose's and possibility of some kind of after care so that he does not go back to the streets without ability to follow up for suture care. Patient is aware that going back on the streets without follow-up for his knee can pose an increased risk of infection for his left knee. We would prefer he be in some sort of assisted living until we can follow-up his wound care and so that he can finish IV antibiotics per I/D recommendations for long-term prevention of recurrent infection. DVT Prophylaxis: Continue chemoprophylaxis per hospitalists. CHARLIE bond in conjunction with SCDs, IS recommended. Pain control: per hospitalists. Antibiotics: Continue per reccs from I/D. Appreciate their assistance with antibiotic choices. PT/OT: appreciate their reccs. WBAT to LLE, can begin AROM/PROM of left knee and D/C brace. Maintain dry dressing at this time; do not get wet. RTC 7-10 days after date of surgery in our office for suture removal or prn additional questions/concerns which arise. Contact our office with questions/concerns: [phone] Advised patient to watch for fever, chills, NVD, abnormal bleeding/oozing/ discharge, worsening pain, worsening change in ROM or strength, abnormal numbness/tingling, change in heat/color of extremities, cramping in his calves or ankles and to seek immediate medical attention if seen. Patient seen/examined in conjunction with Dr. Stephens. 02/21/18 10:24 02/21/18 10:29 Subjective: Able to respond appropriately to questions/commands. Sitting up in bed with knee immobilizer in place and bandages in place. Pain well controlled at this time. Eating normally, passing flatus. Denies change in heat/color of extremity or around dressing, cough, congestion, chest pain or shortness of breath, worsening pain over time, abnormal numbness/tingling, worsening change in distal ROM or strength, cramping in his calves or ankles, fever, chills, NVD , abnormal discharge. Has been up with PT/OT. Objective: Vital Signs Temp Pulse Resp BP Pulse Ox 36.7 C 81 23 H 118/70 93 02/21/18 07:53 02/21/18 07:53 02/21/18 07:53 02/21/18 07:53 02/21/18 07:53 Microbiology 02/19/18 11:56 Mycobacterial Smear (LEYLA) - Final Knee - Tissue 02/19/18 11:56 Gram Stain - Final Knee - Eswab 02/19/18 11:56 Mycobacterial Smear (LEYLA) - Final Knee - Eswab Mycobacterial Culture - Final 02/19/18 03:45 Gram Stain - Final Synovial Fluid - Aspirate 02/19/18 11:56 Gram Stain - Final Knee - Tissue 02/19/18 03:45 Gram Stain - Final Knee - Aspirate Wound Culture - Final Laboratory Results 02/20/18 08:44 02/20/18 04:40 02/20/18 02/21/18 02/22/18 05:59 05:59 05:59 Intake Total 2810 700 Output Total 2110 1050 Balance 700 -350 AO, NAD, knee immobilizer in place, non-labored breathing, no diaphoresis. Afebrile. Abdomen soft, non-tender. MS: Bilateral lower extremities: Left knee: upon takedown of dressing drain in place. I removed drain as it has had minimal drainage. There was no abnormal bleeding/oozing/discharge upon removal. Incision was examined: no erythema, ecchymosis or calor and no abnormal bleeding/oozing/discharge noted. 1+ non- pitting edema to left knee. Mild TTP over incision sites. AROM: 0-45 limited by pain/swelling to patient; FROM distally in left foot/ankle. 5/5 strength distally. Negative passive stretch b/l. All compartments soft. Calves soft/supple and NTTP b/l with negative bilateral Homans b/l with CHARLIE hose present, SCDs on and pumping on non-operative leg. DNVI b/l in BLLE with no focal deficits. Brisk cap refill b/l with pedal pulses intact b/l; no deficits. Microbiology: Left knee aspirate shows Strep Pyogenes A. Waiting final results from surgery. - Pending Discharge Pending Discharge Within 24 Hours: No ICD10 Worksheet Patient Problems: Problems Problem Status Onset Septic arthritis Acute Alcohol intoxication Acute Alcohol use disorder, severe, in controlled environment Acute Body lice Acute Cellulitis of finger of right hand Acute Drug-seeking behavior Acute Esophageal foreign body Acute Head injury Acute Homelessness Acute Liver nodule Acute Nicotine dependence Acute Occipital scalp laceration Acute Psoriasis Acute Rib fractures Acute Suicidal ideation Acute Suicide attempt Acute Depression Chronic
[2018-02-21 11:22] LABS: PLATELET COUNT 274 10^3/uL (150-400)
--- NOTE | 2018-02-21 14:36 | HOSPPROG ---
Hospitalist Progress Note Assessment/Plan: 53 year old male with homelessness, psoriasis, huntingtons admitted with septic knee. Left knee pain - POD 2 status post washout. Cultures reviewed and are growing Group A strep Pyogenes. I discussed his case with ID who recommends change to ancef and dc vancomycin. may not required IV course depending on clinical response. Drain out today, and brace off. WBAT, follow up with ortho in 7-10 days after surgery. will need wound care and follow up with ortho. Moving towards discharge in next 1-2 days depending on ID recommendations. -ancef -follow culture data -pain medications -ID recs on duration and choice/course of abx. -PT/OT RSV- patient tested positive for RSV. still wheezy but not requiring oxygen, . supportive care. nebs, oxygen PRN Hyponatremia -resolved with IV fluids. tolerating adequate PO now. DC IVF. Anemia - patient has a history of intermittent anemia. Is normocytic. Likely anemia of chronic disease with history of alcohol dependence. Continue to monitor. No evidence of active bleeding. Alcohol dependence - patient's tachycardia has improved since admission in the 80s to 90s. Blood pressures are acceptable. Monitor CIWA scores. Last drink was earlier today was 1 shot. high risk for withdrawal. continue CIWA monitoring [place] disease - positive family history. Supportive care. patient left previous facility to live on the streets. Fluid- PO Lytes- WNL Nutrition- regular Cor- Full Dispo- inpatient for bursa infection Subjective: still with pain in the knee. still wheezy. Ate well today with no issue Objective: Vital Signs Temp Pulse Resp BP Pulse Ox 36.5 C 64 18 139/81 H 90 L 02/21/18 11:42 02/21/18 11:42 02/21/18 11:42 02/21/18 11:42 02/21/18 11:42 Microbiology 02/19/18 11:56 Gram Stain - Final Knee - Eswab 02/19/18 03:45 Gram Stain - Final Synovial Fluid - Aspirate 02/19/18 11:56 Gram Stain - Final Knee - Tissue 02/19/18 11:56 Mycobacterial Smear (LEYLA) - Final Knee - Tissue 02/19/18 11:56 Mycobacterial Smear (LEYLA) - Final Knee - Eswab Mycobacterial Culture - Final 02/19/18 03:45 Gram Stain - Final Knee - Aspirate Wound Culture - Final Laboratory Results 02/21/18 11:00 02/20/18 04:40 02/20/18 02/21/18 02/22/18 05:59 05:59 05:59 Intake Total 2810 700 Output Total 2110 1050 Balance 700 -350 - Physical Exam Constitutional: no apparent distress, appears nourished, not in pain Eyes: PERRL, anicteric sclera, EOMI Ears, Nose, Mouth, Throat: moist mucous membranes, hearing normal, ears appear normal, no oral mucosal ulcers Cardiovascular: regular rate and rhythym, no murmur, rub, or gallop Respiratory: no respiratory distress, no rales or rhonchi, clear to auscultation Gastrointestinal: normoactive bowel sounds, soft, non-tender abdomen, no palpable masses Genitourinary: no bladder fullness, no bladder tenderness, no renal bruits Skin: no rashes or abrasions, no fluctuance, no induration Musculoskeletal: full muscle strength, other (left knee with incision, appears cdi. ) Neurologic: AAOx3, sensation intact bilaterally Psychiatric: interacting appropriately, not anxious, not encephalopathic, thought process linear Lymph, Heme, Immunologic: no cervical LAD, no supraclavicular LAD ICD10 Worksheet Patient Problems: Problems Problem Status Onset Septic arthritis Acute Alcohol intoxication Acute Alcohol use disorder, severe, in controlled environment Acute Body lice Acute Cellulitis of finger of right hand Acute Drug-seeking behavior Acute Esophageal foreign body Acute Head injury Acute Homelessness Acute Liver nodule Acute Nicotine dependence Acute Occipital scalp laceration Acute Psoriasis Acute Rib fractures Acute Suicidal ideation Acute Suicide attempt Acute Depression Chronic
--- NOTE | 2018-02-21 14:53 | PCMIDPN ---
Assessment/Plan: Assessment: Left knee prepatellar septic bursitis status post drainage and debridement. Group a strep in culture fluid. Patient with underlying penicillin allergy but tolerating cefazolin without issue. 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 Assessment of the prepatellar site shows no significant inflammation or purulent drainage. Plan: 1. Continue IV cefazolin. 2. Probable duration of antibiotics at least 2 weeks from surgery. Potentially this could be switched to oral antibiotic with good clinical response. 3. Long-term concern about prognosis for healing given underlying late stage [place]'s and homelessness. Subjective: Patient is resting in his hospital bed. Occasional spastic movements due to underlying [place]'s. 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 No fevers or chills. States that his left leg feels like it is on fire. Objective: Cefazolin # 1 Vital Signs Temp Pulse Resp BP Pulse Ox 36.5 C 64 18 139/81 H 90 L 02/21/18 11:42 02/21/18 11:42 02/21/18 11:42 02/21/18 11:42 02/21/18 11:42 Microbiology 02/19/18 11:56 Gram Stain - Final Knee - Tissue 02/19/18 11:56 Gram Stain - Final Knee - Eswab 02/19/18 03:45 Gram Stain - Final Synovial Fluid - Aspirate 02/19/18 11:56 Mycobacterial Smear (LEYLA) - Final Knee - Tissue 02/19/18 11:56 Mycobacterial Smear (LEYLA) - Final Knee - Eswab Mycobacterial Culture - Final 02/19/18 03:45 Gram Stain - Final Knee - Aspirate Wound Culture - Final Laboratory Results 02/21/18 11:00 02/20/18 04:40 02/20/18 02/21/18 02/22/18 05:59 05:59 05:59 Intake Total 2810 700 Output Total 2110 1050 Balance 700 -350 ESR 32 MM/HR (0-20) H 02/18/18 23:42 C-Reactive Protein 60.0 mg/L (<10.0) H 02/18/18 23:42 - Physical Exam General Appearance: WD/WN, alert, no apparent distress, non-toxic Respiratory: lungs clear, normal breath sounds, No respiratory distress Cardiac/Chest: regular rate, rhythm, No tachycardia Skin: normal color, warm/dry, rash Neuro/Psych: alert, normal mood/affect, oriented x 3 ICD10 Worksheet Patient Problems: Problems Problem Status Onset Septic arthritis Acute Alcohol intoxication Acute Alcohol use disorder, severe, in controlled environment Acute Body lice Acute Cellulitis of finger of right hand Acute Drug-seeking behavior Acute Esophageal foreign body Acute Head injury Acute Homelessness Acute Liver nodule Acute Nicotine dependence Acute Occipital scalp laceration Acute Psoriasis Acute Rib fractures Acute Suicidal ideation Acute Suicide attempt Acute Depression Chronic
--- NOTE | 2018-02-21 17:00 | ASMTCMCOM ---
CM Note CM Note Notes: CM met with pt and discussed PT/OT recommendations to SNF. CM submit referrals to SNFs. Pt unable to return to [facility]. CM attempted to provide education about ETOH abuse and pt reports that he does not want to stop drinking and that it is one of the only things to help make her feel better. Pt refused resources on ETOH. Will need [id number]. CM to follow. Plan: [facility] Date Signed: 02/21/2018 05:00 PM Electronically Signed By:SRINI Heard
--- NOTE | 2018-02-21 17:35 | ASMTCMCOM ---
CM Note CM Note Notes: CM submit ULTC 100 to [facility]. Date Signed: 02/21/2018 05:35 PM Electronically Signed By:SRINI Heard
[2018-02-21] MEDS ORDERED: traZODone 100 MG TAB PO ONE (20:11)
[2018-02-21] MEDS: LORazepam 2 MG/ML INJ IVP PRN (22:47)
[2018-02-22] MEDS: OXYCODONE/APAP 5/325 TAB PO PRN ×4 (05:25→20:30)
[2018-02-22] MEDS: ceFAZolin 2 GM/DEXTROSE 100 ML IV SCH ×3 (05:25→21:21)
[2018-02-22] MEDS: ALBUTEROL 3 ML DEYVIAL IH SCH ×4 (05:30→20:52)
[2018-02-22] MEDS: NICOTINE 14 MG/24 HR PATCH TD SCH (09:36)
--- NOTE | 2018-02-22 11:26 | PCMIDPN ---
Assessment/Plan: Assessment: Left knee prepatellar septic bursitis status post drainage and debridement. Group a strep in culture fluid. Patient with underlying penicillin allergy but tolerating cefazolin without issue. 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 Assessment of the prepatellar site shows no significant inflammation or purulent drainage. Healing well. Plan: 1. Continue IV cefazolin. 2. Probable duration of antibiotics at least 2 weeks from surgery. Potentially this could be switched to oral antibiotic with good clinical response. 3. Long-term concern about prognosis for healing given underlying late stage [place]'s and homelessness. 02/22/18 11:24 Subjective: Patient is resting in his hospital bed. Reports no new complaints. States that the pain in his left leg is now centered just around the knee and not the entire leg like yesterday. No fevers or chills. No rash. Objective: Cefazolin # 2 Vital Signs Temp Pulse Resp BP Pulse Ox 36.7 C 72 18 152/69 H 91 L 02/22/18 07:38 02/22/18 09:53 02/22/18 09:53 02/22/18 07:38 02/22/18 09:53 Microbiology 02/19/18 03:45 Gram Stain - Final Synovial Fluid - Aspirate 02/19/18 03:45 Gram Stain - Final Knee - Aspirate Wound Culture - Final 02/19/18 11:56 Gram Stain - Final Knee - Eswab 02/19/18 11:56 Gram Stain - Final Knee - Tissue Laboratory Results 02/21/18 11:00 02/20/18 04:40 02/21/18 02/22/18 02/23/18 05:59 05:59 05:59 Intake Total 700 2000 400 Output Total 1050 Balance -350 2000 400 ESR 32 MM/HR (0-20) H 02/18/18 23:42 C-Reactive Protein 60.0 mg/L (<10.0) H 02/18/18 23:42 - Physical Exam General Appearance: WD/WN, alert, no apparent distress, non-toxic Respiratory: lungs clear, normal breath sounds, No respiratory distress Cardiac/Chest: regular rate, rhythm, No tachycardia Extremities: No non-tender, No normal inspection (Incision anterior left knee clean dry and intact. No significant drainage. Minimal marie-incisional redness.) Skin: normal color, warm/dry, rash Neuro/Psych: alert, normal mood/affect, oriented x 3, other (Spastic chorea movements consistent with underlying [place]'s) ICD10 Worksheet Patient Problems: Problems Problem Status Onset Septic arthritis Acute Alcohol intoxication Acute Alcohol use disorder, severe, in controlled environment Acute Body lice Acute Cellulitis of finger of right hand Acute Drug-seeking behavior Acute Esophageal foreign body Acute Head injury Acute Homelessness Acute Liver nodule Acute Nicotine dependence Acute Occipital scalp laceration Acute Psoriasis Acute Rib fractures Acute Suicidal ideation Acute Suicide attempt Acute Depression Chronic
--- NOTE | 2018-02-22 14:34 | HOSPPROG ---
Hospitalist Progress Note Assessment/Plan: 53 year old male with homelessness, psoriasis, huntingtons admitted with septic knee. Left knee pain - status post washout. Cultures reviewed and are growing Group A strep Pyogenes. On Ancef. discussed with ID and likely recommendation is 2 weeks from surgery, pending clinical improvement. will be difficult given patients homelessness and underlying comorbidities. -ancef -follow culture data -pain medications -PT/OT RSV- patient tested positive for RSV. still wheezy but not requiring oxygen, . supportive care. nebs, oxygen PRN Hyponatremia -resolved. Monitor Na Anemia - patient has a history of intermittent anemia. Is normocytic. Likely anemia of chronic disease with history of alcohol dependence. Continue to monitor. No evidence of active bleeding. Alcohol dependence -no evidence of withdrawal. [place] disease - positive family history. Supportive care. patient left previous facility to live on the streets. Fluid- PO Lytes- WNL Nutrition- regular Cor- Full Dispo- inpatient for bursa infection Subjective: pain better today, more localized. Still wheezy. No other complaints. Objective: Vital Signs Temp Pulse Resp BP Pulse Ox 36.7 C 72 18 152/69 H 91 L 02/22/18 07:38 02/22/18 09:53 02/22/18 09:53 02/22/18 07:38 02/22/18 09:53 Microbiology 02/19/18 11:56 Gram Stain - Final Knee - Eswab 02/19/18 11:56 Gram Stain - Final Knee - Tissue 02/19/18 03:45 Gram Stain - Final Synovial Fluid - Aspirate 02/19/18 03:45 Gram Stain - Final Knee - Aspirate Wound Culture - Final Laboratory Results 02/21/18 11:00 02/20/18 04:40 02/21/18 02/22/18 02/23/18 05:59 05:59 05:59 Intake Total 700 2000 400 Output Total 1050 Balance -350 2000 400 - Physical Exam Constitutional: no apparent distress, appears nourished, not in pain Eyes: PERRL, anicteric sclera, EOMI Ears, Nose, Mouth, Throat: moist mucous membranes, hearing normal, ears appear normal, no oral mucosal ulcers Cardiovascular: regular rate and rhythym, no murmur, rub, or gallop Respiratory: no respiratory distress, no rales or rhonchi, clear to auscultation Gastrointestinal: normoactive bowel sounds, soft, non-tender abdomen, no palpable masses Genitourinary: no bladder fullness, no bladder tenderness, no renal bruits Skin: no rashes or abrasions, no fluctuance, no induration Musculoskeletal: full muscle strength, other Neurologic: AAOx3, sensation intact bilaterally, other (huntingtons tremor) Psychiatric: interacting appropriately, not anxious, not encephalopathic, thought process linear, other (left knee incision CDI. minimal erythema. ) Lymph, Heme, Immunologic: no cervical LAD, no supraclavicular LAD ICD10 Worksheet Patient Problems: Problems Problem Status Onset Septic arthritis Acute Alcohol intoxication Acute Alcohol use disorder, severe, in controlled environment Acute Body lice Acute Cellulitis of finger of right hand Acute Drug-seeking behavior Acute Esophageal foreign body Acute Head injury Acute Homelessness Acute Liver nodule Acute Nicotine dependence Acute Occipital scalp laceration Acute Psoriasis Acute Rib fractures Acute Suicidal ideation Acute Suicide attempt Acute Depression Chronic
--- NOTE | 2018-02-22 18:42 | SOAPPROG ---
SOAP Progress Note Assessment/Plan: Assessment/Plan:POD #3 s/p I and D left knee pre-patellar bursitis with Strep Pyogenes on culture. Pt. continues to be managed by ID with IV antibiotics (Ancef). Will continue to defer to ID for abx management He can wean out of the knee immobilizer-talked to the pt. about this, but his leg feels very unstable secondary to his [place]'s. He feels much better supported in the brace and had mentioned wanting a shorter one that allows for ROM. Will d/w Dr. Stephens. Continue to watch for worsening redness, warmth, fevers, pain. Sutures to be removed 12-14 days post-operatively S: Pt. is feeling much better today, pain well controlled. Has not had any increased swelling, redness, drainage from the incision. No fevers, LOGAN, N/V. O: Pt. continues to rest with his immobilizer on, dressing intact and sabrina wrap in place. These were removed and the Pt. has intact sensation to BLE's equally , equal distal pulses, warm, dry skin. Calves are soft, NTTP. Examination of the knee reveals mild redness surrounding the incision only, wound edges well- approximated, dry, no discharge, no joint effusion, warmth to the joint. Plan: 02/22/18 18:34 Objective: Vital Signs Temp Pulse Resp BP Pulse Ox 36.7 C 61 16 138/79 H 94 02/22/18 15:27 02/22/18 15:41 02/22/18 15:41 02/22/18 15:27 02/22/18 15:41 Microbiology 02/19/18 11:56 Gram Stain - Final Knee - Eswab 02/19/18 11:56 Gram Stain - Final Knee - Tissue 02/19/18 03:45 Gram Stain - Final Synovial Fluid - Aspirate 02/19/18 03:45 Gram Stain - Final Knee - Aspirate Wound Culture - Final Laboratory Results 02/21/18 11:00 02/20/18 04:40 02/21/18 02/22/18 02/23/18 05:59 05:59 05:59 Intake Total 700 2000 1200 Output Total 1050 Balance -350 1999 1200 ICD10 Worksheet Patient Problems: Problems Problem Status Onset Septic arthritis Acute Alcohol intoxication Acute Alcohol use disorder, severe, in controlled environment Acute Body lice Acute Cellulitis of finger of right hand Acute Drug-seeking behavior Acute Esophageal foreign body Acute Head injury Acute Homelessness Acute Liver nodule Acute Nicotine dependence Acute Occipital scalp laceration Acute Psoriasis Acute Rib fractures Acute Suicidal ideation Acute Suicide attempt Acute Depression Chronic
[2018-02-22] MEDS: LORazepam 2 MG/ML INJ IVP PRN (22:00)
[2018-02-23] MEDS: OXYCODONE/APAP 5/325 TAB PO PRN ×4 (05:39→21:31)
[2018-02-23] MEDS: ceFAZolin 2 GM/DEXTROSE 100 ML IV SCH ×3 (06:01→21:31)
[2018-02-23] MEDS: ALBUTEROL 3 ML DEYVIAL IH SCH ×4 (06:52→20:55)
[2018-02-23] MEDS: NICOTINE 14 MG/24 HR PATCH TD SCH (08:05)
[2018-02-23 09:08] LABS: PLATELET COUNT 377 10^3/uL (150-400)
--- NOTE | 2018-02-23 12:52 | SOAPPROG ---
SOAP Progress Note Assessment/Plan: Assessment/Plan:POD #4 s/p I and D left knee pre-patellar bursitis with Strep Pyogenes on culture. Pt. continues to be managed by ID with IV antibiotics (Ancef). Will continue to defer to ID for abx management He can wean out of the knee immobilizer-talked to the pt. about this, but his leg feels very unstable secondary to his [place]'s. He feels much better supported in the brace and had mentioned wanting a shorter one that allows for ROM. Mentioned this again today, his concerns about falling are high. Will d/ w Dr. Stephens. Continue to watch for worsening redness, warmth, fevers, pain. Sutures to be removed 12-14 days post-operatively S: Pt. is feeling much better today, he states that he now has little to no pain , some burning over the knee that was present yesterday has resolved. Has not had any increased swelling, redness, drainage from the incision. No calf pain, N/T of the lower extremity, No fevers, LOGAN, N/V. O: When I arrived, the pt. was up and walking with PT, brace was off, sabrina wraps in place. He was walking well with minor to no assistance, the PT's major concern is his balance. Will need to return later to assess his skin. Plan: 02/22/18 18:34 02/23/18 12:49 Objective: Vital Signs Temp Pulse Resp BP Pulse Ox 36.9 C 80 16 146/91 H 95 02/23/18 07:54 02/23/18 11:53 02/23/18 11:53 02/23/18 07:54 02/23/18 11:53 Microbiology 02/19/18 11:56 Gram Stain - Final Knee - Tissue 02/19/18 11:56 Gram Stain - Final Knee - Eswab 02/19/18 03:45 Gram Stain - Final Synovial Fluid - Aspirate 02/19/18 03:45 Gram Stain - Final Knee - Aspirate Wound Culture - Final Laboratory Results 02/23/18 08:40 02/23/18 08:40 02/22/18 02/23/18 02/24/18 05:59 05:59 05:59 Intake Total 1999 1200 800 Output Total 100 Balance 1999 1200 700 ICD10 Worksheet Patient Problems: Problems Problem Status Onset Septic arthritis Acute Alcohol intoxication Acute Alcohol use disorder, severe, in controlled environment Acute Body lice Acute Cellulitis of finger of right hand Acute Drug-seeking behavior Acute Esophageal foreign body Acute Head injury Acute Homelessness Acute Liver nodule Acute Nicotine dependence Acute Occipital scalp laceration Acute Psoriasis Acute Rib fractures Acute Suicidal ideation Acute Suicide attempt Acute Depression Chronic
--- NOTE | 2018-02-23 15:54 | HOSPPROG ---
Hospitalist Progress Note Assessment/Plan: 53 year old male with homelessness, psoriasis, huntingtons admitted with septic knee. taken to OR for washout. Cultures with MSSA. placement likely an issue as patient is homeless. Left knee pain - status post washout. Cultures reviewed and are growing Group A strep Pyogenes. On Ancef. discussed with ID and likely recommendation is 2 weeks from surgery, pending clinical improvement. will be difficult given patients homelessness and underlying comorbidities. -ancef -pain medications -PT/OT RSV- patient tested positive for RSV. still wheezy but not requiring oxygen, . supportive care. nebs, oxygen PRN Hyponatremia -resolved. Monitor Na Anemia - patient has a history of intermittent anemia. Is normocytic. Likely anemia of chronic disease with history of alcohol dependence. Continue to monitor. No evidence of active bleeding. Alcohol dependence -no evidence of withdrawal. [place] disease - positive family history. Supportive care. patient left previous facility to live on the streets. Fluid- PO Lytes- WNL Nutrition- regular Cor- Full Dispo- inpatient for bursa infection, apparently may have been kicked of SNFs in past. Will need to discuss with CM regarding placement. Subjective: Patient feels better everyday. Working with PT/OT today with only mild pain. breathing much improved as well. Objective: Vital Signs Temp Pulse Resp BP Pulse Ox 36.9 C 61 18 144/91 H 91 L 02/23/18 07:54 02/23/18 15:24 02/23/18 15:24 02/23/18 15:24 02/23/18 15:24 Microbiology 02/19/18 11:56 Gram Stain - Final Knee - Tissue 02/19/18 11:56 Gram Stain - Final Knee - Eswab 02/19/18 03:45 Gram Stain - Final Synovial Fluid - Aspirate 02/19/18 03:45 Gram Stain - Final Knee - Aspirate Wound Culture - Final Laboratory Results 02/23/18 08:40 02/23/18 08:40 02/22/18 02/23/18 02/24/18 05:59 05:59 05:59 Intake Total 1999 1200 900 Output Total 100 Balance 1999 1200 800 - Physical Exam Constitutional: no apparent distress, appears nourished, not in pain Eyes: PERRL, anicteric sclera, EOMI Ears, Nose, Mouth, Throat: moist mucous membranes, hearing normal, ears appear normal, no oral mucosal ulcers Cardiovascular: regular rate and rhythym, no murmur, rub, or gallop Respiratory: no respiratory distress, no rales or rhonchi, clear to auscultation Gastrointestinal: normoactive bowel sounds, soft, non-tender abdomen, no palpable masses Genitourinary: no bladder fullness, no bladder tenderness, no renal bruits Skin: other (has plaques of scaly silver skin on extensor surfaces of elbows and legs. left leg in sabrina wrap. ) Musculoskeletal: full muscle strength, no muscle tenderness, normal joint ROM Neurologic: AAOx3, sensation intact bilaterally, other (huntingtons chorea noted. ) Psychiatric: interacting appropriately, not anxious, not encephalopathic, thought process linear Lymph, Heme, Immunologic: no cervical LAD, no supraclavicular LAD ICD10 Worksheet Patient Problems: Problems Problem Status Onset Septic arthritis Acute Alcohol intoxication Acute Alcohol use disorder, severe, in controlled environment Acute Body lice Acute Cellulitis of finger of right hand Acute Drug-seeking behavior Acute Esophageal foreign body Acute Head injury Acute Homelessness Acute Liver nodule Acute Nicotine dependence Acute Occipital scalp laceration Acute Psoriasis Acute Rib fractures Acute Suicidal ideation Acute Suicide attempt Acute Depression Chronic
[2018-02-23] MEDS: LORazepam 2 MG/ML INJ IVP PRN (21:31)
[2018-02-24] MEDS: OXYCODONE/APAP 5/325 TAB PO PRN ×3 (05:15→21:34)
[2018-02-24] MEDS: ceFAZolin 2 GM/DEXTROSE 100 ML IV SCH ×2 (05:15→14:15)
[2018-02-24] MEDS: ALBUTEROL 3 ML DEYVIAL IH SCH ×4 (05:36→22:15)
[2018-02-24] MEDS: NICOTINE 14 MG/24 HR PATCH TD SCH (08:42)
[2018-02-24] MEDS: LORazepam 2 MG/ML INJ IVP PRN ×2 (08:43→21:42)
--- NOTE | 2018-02-24 11:10 | SOAPPROG ---
SOAP Progress Note Assessment/Plan: Assessment: s/p left knee I/D: Overall doing well, pain well controlled this morning but patient is very anxious to leave and has been unwrapping his dressings to put lotion on his psoriasis; he is very frustrated that he is still in the hospital. I/D has been consulted for positive Strep Pyo A from original knee aspirate but no recommendations have yet been made regarding his outpatient antibiotic care; appreciate their reccs and will await their info. Patient understands the importance of maintaining a dry dressing but states he will continue to remove the dressing to put lotion on it. I have placed a waterproof aquacel type dressing over the wound and am hopeful this may discourage him from removing the dressing. He was re-wrapped again in BILLY bandage. Plan: Can begin AROM/PROM of left knee now that drain has been removed. WBAT. Can D/C brace. New dry dressing was again placed by myself even after the RN had placed a dressing only one hour prior. He had taken it off in the interim. WBAT to LLE. Case Management: I am continuing to request patient be set up with PCP, possible outpatient neuro consult for his Eads's and possibility of some kind of after care so that he does not go back to the streets without ability to follow up for suture care. Patient is aware that going back on the streets without follow-up for his knee can pose an increased risk of infection for his left knee. We would prefer he be in some sort of assisted living until we can follow-up his wound care and so that he can finish IV antibiotics per I/D recommendations for long-term prevention of recurrent infection. DVT Prophylaxis: Continue chemoprophylaxis per hospitalists. CHARLIE bond in conjunction with SCDs, IS recommended. Pain control: per hospitalists. Antibiotics: Continue per reccs from I/D. Appreciate their assistance with antibiotic choices. PT/OT: appreciate their reccs. WBAT to LLE, can begin AROM/PROM of left knee and D/C brace. Maintain dry dressing at this time; do not get wet. RTC 7-10 days after date of surgery in our office for suture removal or prn additional questions/concerns which arise. Contact our office with questions/concerns: [phone] Advised patient to watch for fever, chills, NVD, abnormal bleeding/oozing/ discharge, worsening pain, worsening change in ROM or strength, abnormal numbness/tingling, change in heat/color of extremities, cramping in his calves or ankles and to seek immediate medical attention if seen. Patient seen/examined in conjunction with Dr. Stephens. 02/24/18 11:11 Subjective: Able to respond appropriately to questions/commands. Sitting up in bed with wound exposed and no dressings on. Pain well controlled at this time. Eating normally, passing flatus. Denies change in heat/color of extremity or around dressing, cough, congestion, chest pain or shortness of breath, worsening pain over time, abnormal numbness/tingling, worsening change in distal ROM or strength, cramping in his calves or ankles, fever, chills, NVD, abnormal discharge. Has been up with PT/OT. Very frustrated during my visit today. Objective: Vital Signs Temp Pulse Resp BP Pulse Ox 36.6 C 64 17 168/89 H 92 02/24/18 07:53 02/24/18 07:53 02/24/18 07:53 02/24/18 07:53 02/24/18 07:53 Microbiology 02/19/18 11:56 Gram Stain - Final Knee - Tissue Laboratory Results 02/23/18 08:40 02/23/18 08:40 02/23/18 02/24/18 02/25/18 05:59 05:59 05:59 Intake Total 1200 2270 300 Output Total 400 Balance 1200 1870 300 AO, NAD, knee immobilizer in place, non-labored breathing, no diaphoresis. Afebrile. Abdomen soft, non-tender. MS: Bilateral lower extremities: Left knee: Incision exposed upon presentation, incision was examined: no erythema, ecchymosis or calor and no abnormal bleeding /oozing/discharge noted. 1+ non-pitting edema to left knee. Mild TTP over incision site. AROM: 0-95 limited by pain/swelling to patient; FROM distally in left foot/ankle. 5/5 strength distally. Negative passive stretch b/l. All compartments soft. Calves soft/supple and NTTP b/l with negative bilateral Homans b/l with CHARLIE hose present, SCDs on and pumping on non-operative leg. DNVI b/l in BLLE with no focal deficits. Brisk cap refill b/l with pedal pulses intact b/l; no deficits. Microbiology: Left knee aspirate shows Strep Pyogenes A. Waiting final results from surgery - Pending Discharge Pending Discharge Within 48 Hours: Yes Pending Discharge Date: 02/26/18 Pending Discharge Time: 11:00 ICD10 Worksheet Patient Problems: Problems Problem Status Onset Septic arthritis Acute Alcohol intoxication Acute Alcohol use disorder, severe, in controlled environment Acute Body lice Acute Cellulitis of finger of right hand Acute Drug-seeking behavior Acute Esophageal foreign body Acute Head injury Acute Homelessness Acute Liver nodule Acute Nicotine dependence Acute Occipital scalp laceration Acute Psoriasis Acute Rib fractures Acute Suicidal ideation Acute Suicide attempt Acute Depression Chronic
--- NOTE | 2018-02-24 14:44 | PCMIDPN ---
Assessment/Plan: Assessment/Plan: * Left knee septic bursitis due to group A Streptococcus status post incision and drainage: Significant clinical improvement with mild residual bursitis. Think can transition to oral therapy to complete 2 weeks in total. Will change cefazolin to oral cephalexin 500 mg orally 3 times per day. Anticipate 10 more days of therapy post discharge. * RSV: Clinically improving with intermittent cough present but no significant increase in respiratory demands. 02/24/18 14:40 02/24/18 14:42 Subjective: Patient with less left knee pain. Occasional cough. Objective: Vital Signs Temp Pulse Resp BP Pulse Ox 36.6 C 67 20 168/89 H 93 02/24/18 07:53 02/24/18 11:19 02/24/18 11:19 02/24/18 07:53 02/24/18 11:19 Microbiology 02/19/18 11:56 Gram Stain - Final Knee - Eswab 02/19/18 11:56 Gram Stain - Final Knee - Tissue 02/19/18 03:45 Gram Stain - Final Synovial Fluid - Aspirate Laboratory Results 02/23/18 08:40 02/23/18 08:40 02/23/18 02/24/18 02/25/18 05:59 05:59 05:59 Intake Total 1200 2270 700 Output Total 400 Balance 1200 1870 700 ESR 32 MM/HR (0-20) H 02/18/18 23:42 C-Reactive Protein 60.0 mg/L (<10.0) H 02/18/18 23:42 Cefazolin # 3 Knee cultures group A Streptococcus Respiratory PCR positive for RSV Blood cultures x2 no growth - Physical Exam General Appearance: alert, no apparent distress, non-toxic EENT: No scleral icterus, No thrush Respiratory: lungs clear, other (Occasional cough), No respiratory distress Cardiac/Chest: regular rate, rhythm Extremities: inflammation (Left knee with mild residual edema in bursal thickening; incision line intact; no pain with range of motion of knee; no drainage from incision; no appreciable bursal fluid) Abdomen: non-tender, No distended ICD10 Worksheet Patient Problems: Problems Problem Status Onset Septic arthritis Acute Alcohol intoxication Acute Alcohol use disorder, severe, in controlled environment Acute Body lice Acute Cellulitis of finger of right hand Acute Drug-seeking behavior Acute Esophageal foreign body Acute Head injury Acute Homelessness Acute Liver nodule Acute Nicotine dependence Acute Occipital scalp laceration Acute Psoriasis Acute Rib fractures Acute Suicidal ideation Acute Suicide attempt Acute Depression Chronic
--- NOTE | 2018-02-24 15:50 | ASMTCMCOM ---
CM Note CM Note Notes: Sadly, this patient will likely d/c to the streets tomorrow. He is not interested in any SNF outside of [facility], and we do not have an option for him here. He is a N [facility] client, so we will reserve him a bed there. If he cannot pay for his abx, we can have [facility] assist. CM will follow. Current CM Discharge plan: [facility] Date Signed: 02/24/2018 03:49 PM Electronically Signed By:Sybil Tena RN
[2018-02-24] MEDS: CEPHALEXIN 500 MG CAP PO SCH ×2 (16:34→23:42)
--- NOTE | 2018-02-24 16:36 | HOSPPROG ---
Hospitalist Progress Note Assessment/Plan: 53 year old male with homelessness, psoriasis, huntingtons admitted with septic knee. taken to OR for washout. Cultures with MSSA. placement likely an issue as patient is homeless and has been kicked out of SNF in past for aggression towards staff. Left knee pain - status post washout. Cultures reviewed and are growing Group A strep Pyogenes. On Ancef. Discussed case with ID who says patient can be transitioned to oral Keflex 500 TId to complete 10 days from discharge. -ancef- change to keflex on dc -pain medications -PT/OT RSV- patient tested positive for RSV. still wheezy but not requiring oxygen, . supportive care. nebs, oxygen PRN Hyponatremia -resolved. Monitor Na Anemia - patient has a history of intermittent anemia. Is normocytic. Likely anemia of chronic disease with history of alcohol dependence. Continue to monitor. No evidence of active bleeding. Alcohol dependence -no evidence of withdrawal. [place] disease - positive family history. Supportive care. patient left previous facility to live on the streets. Fluid- PO Lytes- WNL Nutrition- regular Cor- Full Dispo-ID okay for discharge today, but surgery is concerned about patient going to streets and no SNF will take him in [place] due to his hx of aggression. Could go to SNF in [place] but patient refusing and would rather dc to streets. Subjective: pain minimal. wants to be able to smoke and drink and is frustrated about being here. Objective: Vital Signs Temp Pulse Resp BP Pulse Ox 36.6 C 67 20 168/89 H 93 02/24/18 07:53 02/24/18 11:19 02/24/18 11:19 02/24/18 07:53 02/24/18 11:19 Microbiology 02/19/18 03:45 Gram Stain - Final Synovial Fluid - Aspirate 02/19/18 11:56 Gram Stain - Final Knee - Eswab 02/19/18 11:56 Gram Stain - Final Knee - Tissue Laboratory Results 02/23/18 08:40 02/23/18 08:40 02/23/18 02/24/18 02/25/18 05:59 05:59 05:59 Intake Total 1200 2270 700 Output Total 400 Balance 1200 1870 700 - Physical Exam Constitutional: no apparent distress, appears nourished, not in pain Eyes: PERRL, anicteric sclera, EOMI Ears, Nose, Mouth, Throat: moist mucous membranes, hearing normal, ears appear normal, no oral mucosal ulcers Cardiovascular: regular rate and rhythym, no murmur, rub, or gallop Respiratory: no respiratory distress, no rales or rhonchi, clear to auscultation Gastrointestinal: normoactive bowel sounds, soft, non-tender abdomen, no palpable masses Genitourinary: no bladder fullness, no bladder tenderness, no renal bruits Skin: no fluctuance, no induration, other (psoriasis on elbows and legs. ) Musculoskeletal: full muscle strength, no muscle tenderness, normal joint ROM, other (huntingtons chorea noted) Neurologic: AAOx3, sensation intact bilaterally Psychiatric: interacting appropriately, not anxious, not encephalopathic, thought process linear Lymph, Heme, Immunologic: no cervical LAD, no supraclavicular LAD ICD10 Worksheet Patient Problems: Problems Problem Status Onset Septic arthritis Acute Alcohol intoxication Acute Alcohol use disorder, severe, in controlled environment Acute Body lice Acute Cellulitis of finger of right hand Acute Drug-seeking behavior Acute Esophageal foreign body Acute Head injury Acute Homelessness Acute Liver nodule Acute Nicotine dependence Acute Occipital scalp laceration Acute Psoriasis Acute Rib fractures Acute Suicidal ideation Acute Suicide attempt Acute Depression Chronic
[2018-02-25] MEDS: OXYCODONE/APAP 5/325 TAB PO PRN ×2 (02:01→08:47)
[2018-02-25] MEDS: ALBUTEROL 3 ML DEYVIAL IH SCH ×2 (05:09→10:27)
[2018-02-25 08:11] VITALS: BP 116/80
[2018-02-25] MEDS: NICOTINE 14 MG/24 HR PATCH TD SCH ×2 (08:47→08:54)
[2018-02-25] MEDS: CEPHALEXIN 500 MG CAP PO SCH (08:47)
[2018-02-25 09:11] LABS: PLATELET COUNT 417 10^3/uL (150-400)
--- NOTE | 2018-02-25 09:14 | SOAPPROG ---
SOAP Progress Note Assessment/Plan: Assessment/Plan: Left knee septic prepatellar bursitis s/p I&D performed by Dr. Stephens, POD#6 -Cont PT/OT, pt will remain WBAT, can begin AROM/PROM of left knee now that drain has been removed, ok to d/c brace. -Dressing changed today to leukomed/tegaderm, encourage pt to keep intact, clean and dry -ID consulted, pt on Ancef, their rec to transition to Keflex 500 TID on discharge x 10 days, appreciate assistance -Cont current pain regimen -Cont VTE mechanical prophylaxis with SCDs and TEDs -Cont VTE chemoprophylaxis per hospitalists -Concern for management on d/c, would rec SNF if possible -Ok to d/c from ortho standpoint, pt will f/u 7-10 days w/ Christy Stephens 02/25/18 09:15 Subjective: Pt seen at bedside. No complaints of significant pain at this time. He states he has been tolerating his diet and medications well. He notes his appetite is increased today. He denies any f/c/n/v. He has no additional concerns or complaints at this time. We have discussed discharge disposition today. He states that he would like to leave the hospital, and will d/c to the streets as he does not have a home. We have discussed the increased risk for infection, and the importance of keeping his surgical site clean and dry at all times, and avoiding direct impact or significant compression on his patella as this is likely to exacerbate his symptoms. We have also discussed the importance of continuing his antibiotics as ordered. I have encouraged him to stay in the area for the next week or so for follow up with Dr. Stephens for suture removal and further management. He seems amenable to this plan. Per nursing report, no significant issues overnight. He has been pleasant this morning. He did remove his dressing yesterday stating it was "burning", however he attributed this burning to his antibiotics. No additional concerns or complaints at this time. Objective: Vital Signs Temp Pulse Resp BP Pulse Ox 36.6 C 63 16 116/80 91 L 02/25/18 08:00 02/25/18 08:00 02/25/18 08:00 02/25/18 08:00 02/25/18 08:00 Microbiology 02/19/18 03:45 Gram Stain - Final Synovial Fluid - Aspirate 02/19/18 11:56 Gram Stain - Final Knee - Eswab 02/19/18 11:56 Gram Stain - Final Knee - Tissue Laboratory Results 02/25/18 09:05 02/24/18 02/25/18 02/26/18 05:59 05:59 05:59 Intake Total 2270 2140 Output Total 400 1400 Balance 1870 740 Pt seen at bedside, A&Ox3, NAD, VSS, afebrile. Exam of the LLE reveals intact BILLY/curlex. This is removed revealing intact simple sutures consistent with s/ p I&D procedure. No surrounding erythema, calor, discharge or induration. Dressing changed and leukomed/tegaderm applied. AROM 0-115, limited by discomfort. Mild TTP over prepatellar bursa. Ankle/foot/toe exams benign, full AROM compared bilat. Post calves NTTP, no palpable vascular cords, neg Liz's bilat. SCDs at bedside, no TEDs in place. Posterior tibialis and dorsalis pedis pulses intact and equal compared bilat. Pt intact to light touch sensation distally. DVNI BLE. ICD10 Worksheet Patient Problems: Problems Problem Status Onset Septic arthritis Acute Alcohol intoxication Acute Alcohol use disorder, severe, in controlled environment Acute Body lice Acute Cellulitis of finger of right hand Acute Drug-seeking behavior Acute Esophageal foreign body Acute Head injury Acute Homelessness Acute Liver nodule Acute Nicotine dependence Acute Occipital scalp laceration Acute Psoriasis Acute Rib fractures Acute Suicidal ideation Acute Suicide attempt Acute Depression Chronic
--- NOTE | 2018-02-25 15:22 | ASMTLACE ---
[place] Length of stay for Answers: 7-13 days current admission Acuity / Level of Answers: Yes Care: Did the patient have an inpatient admission? Comorbidities - select Answers: Other Notes: [place]'s disease all that apply # of Emergency department Answers: 12+ visits in the last 6 months Social determinants Answers: History of substance abuse (ETOH, street drugs, prescription drugs, etc.) Homelessness (street, longterm) Mental health diagnosis (anxiety, depression, pers onality disorders, etc.) Score: 24 Date Signed: 02/25/2018 03:21 PM Electronically Signed By:MARYJANE Zaman
--- NOTE | 2018-02-25 15:27 | ASMTCMCOM ---
CM Note CM Note Notes: Pt medically stable for d/c on oral antibiotics to [facility]. [facility] long-term bed reserved. Pt antibiotics filled at [facility]. Pt declined [facility] appointment, says he will schedule one after he has follow up with leroy bellaron. Dawit hare scheduled for pt with ETA 30-90 minutes, pt did not wait and left on his own. Date Signed: 02/25/2018 03:27 PM Electronically Signed By:MARYJANE Zaman
--- NOTE | 2018-02-25 15:27 | ASDISCHSUM ---
Discharge Information Plan Status:Homeless/Penitentiary Medically Cleared to Leave: Discharge Date:02/25/2018 02:45 PM CM D/C Disposition: ADT D/C Disposition:Home, Routine, Self-Care Projected Discharge Date:02/23/2018 11:00 AM Transportation at D/C: Discharge Delay Reason: Follow-Up Date:02/23/2018 11:00 AM Discharge Slot: Final Diagnosis: Placement Information Referral Type:*Long-Term/SNF Referral ID:[id number] Provider Name: Address 1: Phone Number: Address 2: Fax Number: City: Selection Factors: State: Patient Contact Information Contact Name:THERESA Relationship: Address:[address] [address] City:[facility] Phone: [facility] Code:[place] [address] Email: Financial Information Financial Class:Medicaid Primary Plan Desc[place] Primary Plan Number:[id number] Secondary Plan Desc: Secondary Plan Number: Assessment Information LACE LACE Length of stay for Answers: 7-13 days current admission Acuity / Level of Answers: Yes Care: Did the patient have an inpatient admission? Comorbidities - select Answers: Other Notes: [place]'s disease all that apply # of Emergency department Answers: 12+ visits in the last 6 months Social determinants Answers: History of substance abuse (ETOH, street drugs, prescription drugs, etc.) Homelessness (street, long term) Mental health diagnosis (anxiety, depression, pers onality disorders, etc.) Score: 24 Date Signed: 02/25/2018 03:21 PM Electronically Signed By:MARYJANE Zaman [facility] CM Progress Note CM Note CM Note Notes: Spoke with pt's RN and conducted chart review. Pt admitted for septic arthritis of knee and will have surgical I&D of that knee today. Pt has hx of [place]'s, ETOH dependence, several admissions for suicide ideation and is homeless. Pt has been refused from many SNFs in the past, see CM note dated 06/11/17. PT and OT have not yet evaluated. Pt likely needing CC case management; management notified. Pt requested RN "find his electric WC" which he states he left at [facility]. Saroj from called to confirm and he will get back to . CM to follow. D/C Plan: TBD Date Signed: 02/19/2018 01:44 PM Electronically Signed By:Karie August [facility] Progress Note CM Note CM Note Notes: Saroj with [facility] reports pt lived at [facility] one year and d/c from September 2016. Pt was independent with ADLs while there and had no electric wc. Date Signed: 02/19/2018 02:33 PM Electronically Signed By:MARYJANE Zaman [facility] Progress Note CM Note CM Note Notes: CM met with pt and discussed PT/OT recommendations to SNF. CM submit referrals to SNFs. Pt unable to return to [facility]. CM attempted to provide education about ETOH abuse and pt reports that he does not want to stop drinking and that it is one of the only things to help make her feel better. Pt refused resources on ETOH. Will need [id number]. CM to follow. Plan: SNF Date Signed: 02/21/2018 05:00 PM Electronically Signed By:SRINI Heard [facility] CM Progress Note CM Note CM Note Notes: CM submit ULTC 100 to [facility]. Date Signed: 02/21/2018 05:35 PM Electronically Signed By:SRINI Heard [facility] CM Progress Note CM Note CM Note Notes: Sadly, this patient will likely d/c to the streets tomorrow. He is not interested in any SNF outside of [facility], and we do not have an option for him here. He is a N [facility] client, so we will reserve him a bed there. If he cannot pay for his abx, we can have [employer] assist. CM will follow. Current CM Discharge plan: [facility] Date Signed: 02/24/2018 03:49 PM Electronically Signed By:Sybil Tena RN [facility] CM Progress Note CM Note CM Note Notes: Pt medically stable for d/c on oral antibiotics to [facility]. [facility] long term bed reserved. [facility]. Pt [facility], says he will schedule one after he has follow up with leroy padilla. Dawit hare scheduled for pt with ETA 30-90 minutes, pt did not wait and left on his own. Date Signed: 02/25/2018 03:27 PM Electronically Signed By:MARYJANE Zaman Intervention Information Intervention Type:*Incorrect Registration Date of Service:02/19/2018 09:42 AM Patient Type:Observation Staff Member:Adrianne Rich Hours: Discipline: Severity: Comment:
--- NOTE | 2018-02-26 06:45 | GDS ---
DISCHARGE DIAGNOSES: 1. Septic bursitis of the knee, status post incision and drainage. 2. Group A Streptococcus pyogenes. 3. Respiratory syncytial virus bronchitis. 4. Moose disease. HISTORY: Manjit is a 53-year-old homeless male with [place] disease who presented with a septic prepatellar bursitis, status post incision and drainage by Dr. Stephens. The drain was removed. His IV Ancef was changed to oral Keflex. He will follow up with Dr. Stephens in 7-10 days. DISCHARGE MEDICATIONS: Please see computer record for a full detailed list of medications, Keflex 50 0 mg p.o. t.i.d. for 10 days. DISCHARGE INSTRUCTIONS: 1. Follow up with Dr. Stephens. 2. Weightbearing as tolerated. Greater than 30 minutes' time was spent arranging this discharge. Patient was seen and examined by elena lane on the day of discharge. /[id number]/MODL
== END 2018-02-25 14:45 | disposition home or self-care (01) | DRG 317 ==
LOC: EDUNIT# → OBSVTOIN 02-19 02:02 → F3N 02-19 03:01
PROVIDERS: ADMIT Family Medicine; ATTEND Family Medicine
PROC: 0M9 Bursae and Ligaments, Drainage (ICD-10-PCS; 2018-02-19)
PROC: 0MBP0ZZ Excision of Left Knee Bursa and Ligament, Open Approach (ICD-10-PCS; principal; 2018-02-19 11:00)
DX: M71.162 Other infective bursitis, left knee (principal); B95.0 Streptococcus, group A, as the cause of diseases classified elsewhere; M23.222 Derangement of posterior horn of medial meniscus due to old tear or injury, left knee; E87.1 Hypo-osmolality and hyponatremia; E86.1 Hypovolemia; D63.8 Anemia in other chronic diseases classified elsewhere; J20.5 Acute bronchitis due to respiratory syncytial virus; G10 Huntington's disease; F10.220 Alcohol dependence with intoxication, uncomplicated; F17.210 Nicotine dependence, cigarettes, uncomplicated; G62.9 Polyneuropathy, unspecified; E66.09 Other obesity due to excess calories; Z68.28 Body mass index [BMI] 28.0-28.9, adult; L40.9 Psoriasis, unspecified; Z98.1 Arthrodesis status; Z59.0 Homelessness; Z86.14 Personal history of Methicillin resistant Staphylococcus aureus infection
CPT/HCPCS: 97110-GP; 97116-GP; 97162-GP; 97166-GO; 97530-GP; 97535-GO; G0480; J0690; J2060; J2250; J2270; J2704; J3010; J3360; J3370; J7613

== ENCOUNTER 2018-03-02 15:30 | Emergency (ER) | payer MEDICAID ==
--- NOTE | 2018-03-02 15:37 | EDPHY ---
H & P Time Seen by Provider: 03/02/18 15:36 HPI/ROS: HPI CHIEF COMPLAINT: Alcohol Intoxication HISTORY OF PRESENT ILLNESS: 53-year-old male well known to myself as well as the emergency room, homeless with daily alcohol use presents emergency room with for acute alcohol intoxication. Presents emergency room by EMS as he is highly intoxicated with alcohol is unable to walk as he is too ataxic. No trauma reported. He arrives to the ER in the hallway bed and is highly intoxicated smells of alcohol. Patient admits to large amount of alcohol this afternoon Past Medical History: Alcoholism with daily alcohol use. Past Surgical History: Denies recent surgery Social History: Homeless, daily alcohol use. Alcoholism. Family History: Noncontributory ROS REVIEW OF SYSTEMS: 10 Systems were reviewed and negative with the exception of the elements mentioned in the history of present illness. Exam Constitutional Intoxicated, triage nursing summary reviewed, vital signs reviewed, Sleepy, smells of alcohol Eyes normal conjunctivae and sclera, horizontal beating nystagmus consistent acute alcohol intoxication, otherwise pupils equal and react to light HENT normal inspection, atraumatic, moist mucus membranes, no epistaxis, neck supple/ no meningismus, no raccoon eyes. Respiratory clear to auscultation bilaterally, normal breath sounds, no respiratory distress, no wheezing. Cardiovascular rate normal, regular rhythm, no murmur, no edema, distal pulses normal. Gastrointestinal soft, non-tender, no rebound, no guarding, normal bowel sounds, no distension, no pulsatile mass. Genitourinary no CVA tenderness. Musculoskeletal no midline vertebral tenderness, full range of motion, no calf swelling, no tenderness of extremities, no meningismus, good pulses, neurovascularly intact. Skin pink, warm, & dry, no rash, skin atraumatic. Neurologic sleepy, intoxicated with alcohol,, alert and oriented x 3, AAOx3, moves all 4 extremities equally, motor intact, sensory intact, CN II-XII intact , , normal vision, normal speech. Psychiatric normal mood/affect. Heme/Lymph/Immune no lymphadenopathy. Differential Diagnosis: Includes but is not limited to in a particular order acute alcohol intoxication, alcohol abuse, dehydration, electrolyte abnormality , nausea vomiting from acute alcohol intoxication Medical Decision Making: Plan for this patient breath alcohol, quality assurance monitor chassis with pulse ox, watch closely for further sedation watch for sobriety. Re-evaluation: Breath alcohol with weak effort 168. 3:39 p.m.. 1842 patient re-evaluate he is up ambulatory throughout the emergency room with a steady gait, clinically sober. Has no complaints. He is on a arc hold. Police are here to take him to detox. 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 - Social History Smoking Status: Current every day smoker Constitutional: Initial Vital Signs Temperature (C) 36.3 C 03/02/18 15:35 Heart Rate 67 03/02/18 15:35 Respiratory Rate 16 03/02/18 15:35 Blood Pressure 129/72 H 03/02/18 15:35 O2 Sat (%) 91 L 03/02/18 15:35 O2 Delivery Mode Room Air Allergies/Adverse Reactions: Penicillins Allergy (Verified 01/31/18 20:45) Home Medications: Medication Instructions Recorded Acetaminophen [Tylenol 325mg (*)] 650 mg PO Q4HRS PRN tab 02/03/18 Ibuprofen [Motrin (*)] 400 mg PO Q6HRS PRN tab 02/03/18 Multivitamins [Multivitamin (*)] 1 each PO DAILY tab 02/03/18 Cephalexin [Keflex (*)] 500 mg PO Q8H #30 cap 02/25/18 Departure - Departure Disposition: Home, Routine, Self-Care Clinical Impression: Alcohol intoxication Qualifiers: Complication of substance-induced condition: uncomplicated Qualified Code(s): F10.920 - Alcohol use, unspecified with intoxication, uncomplicated Instructions: Alcohol Intoxication (ED) Referrals: NONE *PRIMARY CARE P,. [Primary Care Provider] - As per Instructions
[2018-03-02 18:29] VITALS: BP 125/61
[2018-03-02] MEDS ORDERED: CHLORDIAZEPOXIDE 25MG PREPK#6 BTL TAKEHOME ONE (18:43)
== END 2018-03-02 18:50 | disposition home or self-care (01) ==
DX: F10.920 Alcohol use, unspecified with intoxication, uncomplicated (principal); Z59.0 Homelessness

== ENCOUNTER 2018-03-04 17:12 | Emergency (ER) | payer MEDICAID ==
--- NOTE | 2018-03-04 17:18 | EDPHY ---
H & P Time Seen by Provider: 03/04/18 17:17 HPI/ROS: CHIEF COMPLAINT: Head injury HISTORY OF PRESENT ILLNESS: 53-year-old homeless male history of alcoholism arrives via ambulance, not a trauma activation, after he was getting off of the city bus, fell at the last step falling forward impacting his head. Positive brief loss of consciousness. No seizure activity according to bystanders. He has no complaints of pain or discomfort. He denies: Headache, nausea, vomiting , midline C-spine pain, peripheral paresthesia, weakness, numbness, chest pain or trauma, back pain or trauma, abdominal pain or trauma. This was a mechanical , non syncopal episode. Admits to positive alcohol use. PRIMARY CARE PROVIDER: REVIEW OF SYSTEMS: 10 systems reviewed and negative with the exception of the elements mentioned in the history of present illness PAST MEDICAL/SURGICAL HISTORY: no anticoagulant use, history of alcoholism. SOCIAL HISTORY: Positive for recent alcohol use. Homeless. PHYSICAL EXAM 1) GENERAL: Well-developed, well-nourished, alert and oriented. Appears to be in no acute distress. Answering questions appropriately. 2) HEAD: Normocephalic, frontal abrasion and hematoma 3) HEENT: Pupils equal, round, reactive to light bilaterally. Negative Horners. Nasopharynx, oropharynx, clear. No deformity or angulation of nose. No septal hematoma. No rhinorrhea. No oral trauma. Ears bilaterally with normal tympanic membranes. No hemotympanum. No fluid or blood in the external auditory canal. No raccoon eyes. No Rosales sign. Teeth are normally aligned with no gross malocclusion, TMJ bilaterally nontender, facial bones nontender including the zygomatic arch, maxilla mandible. 4) NECK: pre-hospital towel wrap cervical immobilization in place. Posterior cervical spine is nontender, no stepoff, no effusion. Full range of motion which does not elicit any midline cervical spine pain, no posterior midline tenderness, no step-off. Cervical immobilization kept in place due to patient' s acute alcohol abuse and mechanism. 5) LUNGS: Clear to auscultation bilaterally, no wheezes, no rhonchi, no retractions. No obvious signs of trauma. No chest wall pain. No flaring, no grunting. Moving symmetrically. No crepitus. 6) HEART: Regular rate and rhythm, 7) ABDOMEN: No guarding, no rebound, no focal tenderness, no peritoneal signs, no signs of trauma, no ecchymosis 8) MUSCULOSKELETAL: Moving all extremities, no focal areas of tenderness, no obvious trauma. 9) BACK: Patient logrolled while holding inline traction.patient unable to differentiate true midline versus just lateral midline lower thoracic spine pain. No signs of trauma, no abrasion no step-off no crepitus no effusion., no fluctuance, no step-off, no obvious trauma, no visual or palpable abnormality. 10) SKIN: Frontal abrasion 11) NEURO: Awake, alert, and oriented to person, place and time. Answers questions appropriately. There were no obvious focal neurologic abnormalities. No cerebellar dysfunction. Cranial nerves 2 through to 12 intact. Upper and lower extremities bilaterally with strength 5 / 5, reflexes 2+. DIFFERENTIAL DIAGNOSIS: Not necessarily in any particular order, my differential diagnosis includes, but is not limited to, concussion, skull fracture, intraparenchymal contusion, subarachnoid, subdural and epidural hematoma. The patient understands that this diagnosis is provisional and can never be 100% accurate. 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 No acute fracture or soft tissue swelling. 2. Well-seated posterior fusion construct extending from C4-C6. 3. If the patient has persistent pain or neurologic deficits, consider cervical spine MRI. Findings discussed with Emergency Department Physician Mud Analysis Supervisor, Jayden Kaminski PA-C, at March 04, [address] 03/04/18 17:16 Impression: 1. No acute fracture or evidence of acute intracranial injury. 2. Mild chronic right maxillary sinus disease. Findings discussed with Emergency Department physician assistant federal public defender, Geronimo Kaminski on 03/04/2018, 18:19. Thoracic Spine X-Ray 03/04/18 17:16 Impression: No acute acute thoracic fracture identified in this uncooperative patient. If symptoms persist consider CT or MRI when the patient is able to cooperate. Images reviewed myself ED Course/Re-evaluation: 5:30 p.m.: Head CT ordered in this patient for trauma for the following indication: Loss of consciousness and visible head trauma 7:10 p.m.: Re-evaluation. The patient has self-extricated from his cervical immobilization device. He is standing up, has gotten himself out of the bed and is observed urinating into the sink in the room. He would like to be discharged. I have offered to [facility] which he declines. He is ambulating without assistance, stable steady gait, clear speech pattern, awake alert oriented person place time events. He will be discharged. Recommend moderation of alcohol use in the future. Care of patient under supervision of secondary supervising physician Dr Joyce Departure - Departure Disposition: Home, Routine, Self-Care Clinical Impression: Alcohol abuse, Head injury due to trauma Condition: Good Instructions: Head Injury (ED), Abuse of Alcohol (ED) Additional Instructions: Please consider long-term sobriety from alcohol. Please exercise moderation with alcohol. ALTHOUGH THERE IS NO EVIDENCE OF SERIOUS HEAD INJURY AT THIS TIME , DELAYED SIGNS CAN APPEAR 24 TO 48 HOURS AFTER INJURY. PLEASE RETURN TO THE EMERGENCY DEPARTMENT (ED) IMMEDIATELY IF YOU HAVE INCREASED HEADACHE, PERSISTENT HEADACHE, VOMITING, WEAKNESS, CONFUSION OR VISUAL PROBLEMS. WE RECOMMEND THAT YOU DO NOT RESUME CONTACT SPORTS OR ACTIVITIES THAT TAKE COORDINATION OR BALANCE SUCH SKIING OR RIDING A BICYCLE UNTIL CLEARED TO DO SO BY YOUR DOCTOR OR BY A NEUROLOGIST. Referrals: [facility] [Outside] - As per Instructions
[2018-03-04] MEDS ORDERED: CHLORDIAZEPOXIDE 25MG PREPK#6 BTL TAKEHOME ONE (20:04)
[2018-03-04 20:24] VITALS: BP 115/75
== END 2018-03-04 20:33 | disposition home or self-care (01) ==
LOC: EDUNIT#
DX: S09.90XA Unspecified injury of head, initial encounter (principal); F10.10 Alcohol abuse, uncomplicated; Z59.0 Homelessness; W10.8XXA Fall (on) (from) other stairs and steps, initial encounter; Y92.811 Bus as the place of occurrence of the external cause; Y93.9 Activity, unspecified; Y99.8 Other external cause status

== ENCOUNTER 2018-03-07 14:49 | Emergency (ER) | payer MEDICAID ==
--- NOTE | 2018-03-07 14:51 | EDPHY ---
H & P Time Seen by Provider: 03/07/18 14:51 HPI/ROS: HPI CHIEF COMPLAINT: Alcohol intoxication HISTORY OF PRESENT ILLNESS: 53-year-old male very familiar to myself, history of alcoholism daily alcohol use, presents emergency room by EMS for acute alcohol intoxication. Patient arrives to the emergency room highly intoxicated with alcohol. Slurring his speech, unable to ambulate. No trauma reported. Blood sugar reported by EMS normal. Past Medical History: Alcoholism daily alcohol use. Past Surgical History: No recent surgical history Social History: Homeless, daily alcohol use. Family History: Noncontributory ROS REVIEW OF SYSTEMS: 10 Systems were reviewed and negative with the exception of the elements mentioned in the history of present illness. Exam Constitutional intoxicated, smells of alcohol triage nursing summary reviewed, vital signs reviewed, awake/alert. Eyes normal conjunctivae and sclera, EOMI, PERRLA. HENT normal inspection, atraumatic, moist mucus membranes, no epistaxis, neck supple/ no meningismus, no raccoon eyes. Respiratory clear to auscultation bilaterally, normal breath sounds, no respiratory distress, no wheezing. Cardiovascular rate normal, regular rhythm, no murmur, no edema, distal pulses normal. Gastrointestinal soft, non-tender, no rebound, no guarding, normal bowel sounds, no distension, no pulsatile mass. Genitourinary no CVA tenderness. Musculoskeletal no midline vertebral tenderness, full range of motion, no calf swelling, no tenderness of extremities, no meningismus, good pulses, neurovascularly intact. Skin pink, warm, & dry, no rash, skin atraumatic. Neurologic truncal ataxia, intoxicated, smells of alcohol, slurring speech, Psychiatric normal mood/affect. Heme/Lymph/Immune no lymphadenopathy. Differential Diagnosis: Includes but is not limited acute alcohol intoxication , dehydration, electrolyte disturbance Medical Decision Making: Plan for this patient IV establishment building construction teacher , IV fluid bolus, basic blood work, check electrolytes, serum alcohol level. Re-evaluation: Serum alcohol level 289. 2057: Patient here well known to myself frequent alcoholic, serum alcohol level was 289 upon arrival he has been here for 6 hr sobering. He is now sober with a steady gait, on exam has no complaints. He is requesting go to detox. Will help arrange this. 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 - Social History Smoking Status: Current every day smoker Constitutional: Initial Vital Signs Temperature (C) 36.2 C 03/07/18 14:53 Heart Rate 60 03/07/18 14:53 Respiratory Rate 18 03/07/18 14:53 Blood Pressure 122/72 H 03/07/18 14:53 O2 Sat (%) 92 03/07/18 14:53 O2 Delivery Mode Room Air Allergies/Adverse Reactions: Penicillins Allergy (Verified 03/07/18 14:53) Home Medications: Medication Instructions Recorded NK [No Known Home Meds] 03/04/18 Medical Decision Making - Data Points Laboratory Results: Laboratory Results 03/07/18 16:03 03/07/18 16:03 03/07/18 03/07/18 16:03 16:03 WBC 9.59 10^3/uL H 10^3/uL (3.80-9.50) RBC 4.55 10^6/uL 10^6/uL (4.40-6.38) Hgb 13.1 g/dL L g/dL (13.7-17.5) Hct 39.8 % L % (40.0-51.0) MCV 87.5 fL fL (81.5-99.8) MCH 28.8 pg pg (27.9-34.1) MCHC 32.9 g/dL g/dL (32.4-36.7) RDW 13.2 % % (11.5-15.2) Plt Count 345 10^3/uL 10^3/uL (150-400) MPV 9.1 fL fL (8.7-11.7) Neut % (Auto) 70.3 % % (39.3-74.2) Lymph % (Auto) 19.8 % % (15.0-45.0) [place] % (Auto) 6.7 % % (4.5-13.0) Eos % (Auto) 2.3 % % (0.6-7.6) Baso % (Auto) 0.5 % % (0.3-1.7) Nucleat RBC Rel Count 0.0 % % (0.0-0.2) Absolute Neuts (auto) 6.74 10^3/uL H 10^3/uL (1.70-6.50) Absolute Lymphs (auto) 1.90 10^3/uL 10^3/uL (1.00-3.00) Absolute Monos (auto) 0.64 10^3/uL 10^3/uL (0.30-0.80) Absolute Eos (auto) 0.22 10^3/uL 10^3/uL (0.03-0.40) Absolute Basos (auto) 0.05 10^3/uL 10^3/uL (0.02-0.10) Absolute Nucleated RBC 0.00 10^3/uL 10^3/uL (0-0.01) Immature Gran % 0.4 % % (0.0-1.1) Immature Gran # 0.04 10^3/uL 10^3/uL (0.00-0.10) Sodium 138 mEq/L mEq/L (135-145) Potassium 4.4 mEq/L mEq/L (3.5-5.2) Chloride 104 mEq/L mEq/L (97-110) Carbon Dioxide 28 mEq/l mEq/l (22-31) Anion Gap 6 mEq/L mEq/L (6-14) BUN 5 mg/dL L mg/dL (7-23) Creatinine 0.7 mg/dL mg/dL (0.7-1.3) Estimated GFR > 60 Glucose 99 mg/dL mg/dL (70-100) Calcium 9.2 mg/dL mg/dL (8.5-10.4) Ethyl Alcohol 289 mg/dL H mg/dL (0-10) Medications Given: Discontinued Medications Sodium Chloride (Ns) 1,000 mls @ 0 mls/hr IV EDNOW ONE; Wide Open PRN Reason: Protocol Stop: 03/07/18 14:55 Last Admin: 03/07/18 16:11 Dose: 1,000 mls Departure - Departure Disposition: Home, Routine, Self-Care Clinical Impression: Alcohol dependence, Alcohol intoxication Condition: Good Instructions: Alcohol Intoxication (ED), Abuse of Alcohol (ED) Referrals: Patient,NotPresent [Unknown] - As per Instructions
[2018-03-07] MEDS ORDERED: NS 1,000 ML IV ONE (14:54)
[2018-03-07 16:16] LABS: PLATELET COUNT 345 10^3/uL (150-400)
[2018-03-07 21:00] VITALS: BP 119/68
== END 2018-03-07 21:13 | disposition home or self-care (01) ==
LOC: EDUNIT#
DX: F10.229 Alcohol dependence with intoxication, unspecified (principal); E86.9 Volume depletion, unspecified
CPT/HCPCS: G0480

== ENCOUNTER 2018-03-15 21:46 | Emergency (ER) | payer OTHER ==
[2018-03-15] MEDS ORDERED: IBUPROFEN 200 MG TAB PO ONE (22:10)
[2018-03-15] MEDS ORDERED: ACETAMINOPHEN 500 MG TAB PO ONE (22:10)
--- NOTE | 2018-03-15 22:16 | EDPHY ---
H & P Stated Complaint: multiple falls today Time Seen by Provider: 03/15/18 21:57 HPI/ROS: HPI: The patient presents with multiple falls, he believes for today. He is brought in by ambulance after these falls. His 1st 1 occurred when his legs became wobbly and gave out on him. He fell backwards onto his tailbone and has had pain ever since which is achy, constant, moderate in severity. He then went on to have 2 other falls in which he fell backward and hit his head. He does report a global headache right now which is moderate without any vomiting or vision change. He had another fall falling forward and landing on his right knee which now hurt significantly. He does report that he drink alcohol today. 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 He is working on obtaining a wheelchair which he believes would help him. He says he does fall on a near daily basis. He has been staying at the [facility]. He was admitted to the hospital earlier this month for left knee patellar bursitis. He has not had any fevers or chills. REVIEW OF SYSTEMS 10 systems were reviewed and negative with the exception of the elements mentioned in the history of present illness. 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, recent left knee pre-patellar bursitis, psoriasis, alcohol abuse TRAUMA PHYSICAL General Appearance: Alert, no distress Head: Atraumatic Eyes: Pupils equal, round, reactive ENT, Mouth: No hemotypanium, no oral trauma Neck: Diffuse cervical spinal tenderness to palpation, trachea midline Respiratory: No chest wall tenderness, no subcutaneous air, lungs clear bilaterally Cardiovascular: Regular rate and rhythm Abdomen: Abdomen is soft and non-tender, pelvis stable Skin: Psoriatic plaques throughout his lower extremities Back: No midline T/L/S pain, there is tenderness of the coccyx Extremities: Non-tender, full range of motion Neurological: A&Ox3, GCS=15,normal motor function with 5/5 strength in all 4 extremities, normal sensory exam Source: Patient, Old records Exam Limitations: Intoxication - Personal History Current Tetanus/Diphtheria Vaccine: Yes Current Tetanus Diphtheria and Acellular Pertussis (TDAP): Yes - Medical/Surgical History Hx Asthma: No Hx Chronic Respiratory Disease: No Hx Diabetes: No Hx Cardiac Disease: No Hx Renal Disease: No Hx Cirrhosis: No Hx Alcoholism: Yes Hx HIV/AIDS: No Hx Splenectomy or Spleen Trauma: No Other PMH: etoh abuse, 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 No new intracranial abnormality seen. Moderate atrophy presumably related to alcohol abuse. 2. Progression of right maxillary sinus disease. 3. No acute osseous abnormality seen associated with the cervical spine as detailed above. If symptoms worsen, additional imaging may be necessary. Findings discussed with Jessica Mcgarry MD at 23:16 hour, 03/15/2018. Head CT 03/15/18 22:10 Impression: 1. No new intracranial abnormality seen. Moderate atrophy presumably related to alcohol abuse. 2. Progression of right maxillary sinus disease. 3. No acute osseous abnormality seen associated with the cervical spine as detailed above. If symptoms worsen, additional imaging may be necessary. Findings discussed with Jessica Mcgarry MD at 23:16 hour, 03/15/2018. Knee X-Ray 03/15/18 22:10 Impression: 1. Mild degenerative changes about the right knee joint. 2. No acute osseous abnormality seen. Sacrum and Coccyx X-Ray 03/15/18 22:10 Impression: 1. No acute fracture about the sacrum and coccyx. 2. Moderate anterior wedge compression fracture superior endplate of L3 of indeterminate age. Imaging: Discussed imaging studies w/ dry folder cloth Radiologist Differential Diagnosis: This is a 53-year-old man, well known to our emergency department with homelessness, alcohol abuse, Moose's disease, psoriasis, recent admission for left knee prepatellar bursitis requiring orthopedic intervention who now presents with for falls today. Patient does not use anything to help him to walk, however is working on getting wheelchair he says. He says he has falls near daily as because his legs become wobbly, I suspect alcohol use is a contributing factor. Here he is complaining of knee pain, headache, neck pain. He denies any loss of consciousness. It is unusual that he has had so many falls over a short period though he does have a longstanding history of falls and is currently intoxicated. Plan for basic labs and imaging. Differential diagnosis includes subarachnoid hemorrhage, subdural hemorrhage, cervical spinal fracture, coccyx fracture. Imaging was all unremarkable. Sutures from his left knee were removed. Labs were unremarkable. Patient was able to walk with a steady gait and was [facility]. He will be discharged via taxi. - Data Points Laboratory Results: Laboratory Results 03/15/18 22:14 03/15/18 22:14 03/15/18 03/15/18 22:14 22:14 WBC 10.31 10^3/uL H 10^3/uL (3.80-9.50) RBC 4.67 10^6/uL 10^6/uL (4.40-6.38) Hgb 13.6 g/dL L g/dL (13.7-17.5) Hct 41.3 % % (40.0-51.0) MCV 88.4 fL fL (81.5-99.8) MCH 29.1 pg pg (27.9-34.1) MCHC 32.9 g/dL g/dL (32.4-36.7) RDW 13.5 % % (11.5-15.2) Plt Count 361 10^3/uL 10^3/uL (150-400) MPV 9.0 fL fL (8.7-11.7) Neut % (Auto) 69.9 % % (39.3-74.2) Lymph % (Auto) 18.5 % % (15.0-45.0) [place] % (Auto) 8.1 % % (4.5-13.0) Eos % (Auto) 2.1 % % (0.6-7.6) Baso % (Auto) 1.0 % % (0.3-1.7) Nucleat RBC Rel Count 0.0 % % (0.0-0.2) Absolute Neuts (auto) 7.21 10^3/uL H 10^3/uL (1.70-6.50) Absolute Lymphs (auto) 1.91 10^3/uL 10^3/uL (1.00-3.00) Absolute Monos (auto) 0.83 10^3/uL H 10^3/uL (0.30-0.80) Absolute Eos (auto) 0.22 10^3/uL 10^3/uL (0.03-0.40) Absolute Basos (auto) 0.10 10^3/uL 10^3/uL (0.02-0.10) Absolute Nucleated RBC 0.00 10^3/uL 10^3/uL (0-0.01) Immature Gran % 0.4 % % (0.0-1.1) Immature Gran # 0.04 10^3/uL 10^3/uL (0.00-0.10) Sodium 138 mEq/L mEq/L (135-145) Potassium 4.4 mEq/L mEq/L (3.5-5.2) Chloride 105 mEq/L mEq/L (97-110) Carbon Dioxide 25 mEq/l mEq/l (22-31) Anion Gap 8 mEq/L mEq/L (6-14) BUN 8 mg/dL mg/dL (7-23) Creatinine 0.6 mg/dL L mg/dL (0.7-1.3) Estimated GFR > 60 Glucose 98 mg/dL mg/dL (70-100) Calcium 9.5 mg/dL mg/dL (8.5-10.4) Ethyl Alcohol < 10 mg/dL mg/dL (0-10) Medications Given: Discontinued Medications Acetaminophen (Tylenol) 1,000 mg PO EDNOW ONE Stop: 03/15/18 22:11 Last Admin: 03/15/18 22:57 Dose: 1,000 mg Ibuprofen (Motrin) 400 mg PO EDNOW ONE Stop: 03/15/18 22:11 Last Admin: 03/15/18 22:56 Dose: 400 mg Departure - Departure Disposition: Home, Routine, Self-Care Clinical Impression: Frequent falls, Alcohol use Headache Qualifiers: Headache type: unspecified Headache chronicity pattern: acute headache Intractability: not intractable Qualified Code(s): R51 - Headache Condition: Good Instructions: Fall Prevention (ED) Referrals: [facility],. [Clinic] - As per Instructions
[2018-03-15 22:18] LABS: PLATELET COUNT 361 10^3/uL (150-400)
[2018-03-15 23:47] VITALS: BP 129/75
== END 2018-03-15 23:46 | disposition home or self-care (01) ==
LOC: EDUNIT#
DX: R51 Headache (principal); Z91.81 History of falling; F10.120 Alcohol abuse with intoxication, uncomplicated; G10 Huntington's disease; Z59.0 Homelessness; Y90.0 Blood alcohol level of less than 20 mg/100 ml; Z87.39 Personal history of other diseases of the musculoskeletal system and connective tissue
CPT/HCPCS: G0480

== ENCOUNTER 2018-03-23 14:02 | Emergency (ER) | payer MEDICAID ==
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
[2018-03-23] MEDS ORDERED: CHLORDIAZEPOXIDE 25MG PREPK#6 BTL TAKEHOME ONE (15:10)
[2018-03-23 17:30] VITALS: BP 128/74
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
== END 2018-03-23 17:30 | disposition home or self-care (01) ==
LOC: EDUNIT#
DX: S09.90XA Unspecified injury of head, initial encounter (principal); F10.920 Alcohol use, unspecified with intoxication, uncomplicated; Z59.0 Homelessness; W22.8XXA Striking against or struck by other objects, initial encounter; Y92.9 Unspecified place or not applicable; Y93.9 Activity, unspecified; Y99.9 Unspecified external cause status

== ENCOUNTER 2018-04-06 22:06 | Emergency (ER) | payer MEDICAID ==
[2018-04-06 22:11] VITALS: BP 110/65
[2018-04-06] MEDS ORDERED: CHLORDIAZEPOXIDE 25MG PREPK#6 BTL TAKEHOME ONE (22:12)
--- NOTE | 2018-04-06 22:12 | EDPHY ---
H & P Time Seen by Provider: 04/06/18 22:09 HPI/ROS: HPI CHIEF COMPLAINT: Alcohol Intoxication HISTORY OF PRESENT ILLNESS: 53-year-old male well known to myself as well as the emergency room, history of homelessness, alcoholism daily alcohol use he has been drinking tonight. He arrives to the emergency room by EMS from the homeless care home for acute alcohol intoxication. He was unable to ambulate safely there so 911 was called. He is allowed to go to the arc however they requested he come to the emergency room 1st get Librium. The patient has no complaints. He arrives emergency room intoxicated with alcohol. He is very calm and pleasant. Past Medical History: Alcoholism daily alcohol use. Past Surgical History: No recent surgery Social History: The homeless. Daily alcohol use. Family History: Noncontributory ROS REVIEW OF SYSTEMS: 10 Systems were reviewed and negative with the exception of the elements mentioned in the history of present illness. Exam Constitutional Intoxicated, triage nursing summary reviewed, vital signs reviewed, Sleepy, smells of alcohol Eyes normal conjunctivae and sclera, horizontal beating nystagmus consistent acute alcohol intoxication, otherwise pupils equal and react to light HENT normal inspection, atraumatic, moist mucus membranes, no epistaxis, neck supple/ no meningismus, no raccoon eyes. Respiratory clear to auscultation bilaterally, normal breath sounds, no respiratory distress, no wheezing. Cardiovascular rate normal, regular rhythm, no murmur, no edema, distal pulses normal. Gastrointestinal soft, non-tender, no rebound, no guarding, normal bowel sounds, no distension, no pulsatile mass. Genitourinary no CVA tenderness. Musculoskeletal no midline vertebral tenderness, full range of motion, no calf swelling, no tenderness of extremities, no meningismus, good pulses, neurovascularly intact. Skin pink, warm, & dry, no rash, skin atraumatic. Neurologic sleepy, intoxicated with alcohol,, alert and oriented x 3, AAOx3, moves all 4 extremities equally, motor intact, sensory intact, CN II-XII intact , , normal vision, normal speech. Psychiatric normal mood/affect. Heme/Lymph/Immune no lymphadenopathy. Differential Diagnosis: Includes but is not limited to in a particular order acute alcohol intoxication, alcohol abuse, dehydration, electrolyte abnormality , nausea vomiting from acute alcohol intoxication Medical Decision Making: Plan for this patient fingerstick glucose, breath alcohol. Will then ambulate patient if he can't ambulate safely I will allowed to go to detox. Re-evaluation: Breath alcohol 200. Fingerstick glucose 96. 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 - Social History Smoking Status: Current every day smoker Constitutional: Initial Vital Signs Temperature (C) 36.8 C 04/06/18 22:00 Heart Rate 80 04/06/18 22:00 Respiratory Rate 20 04/06/18 22:00 Blood Pressure 110/65 04/06/18 22:00 O2 Sat (%) 93 04/06/18 22:00 O2 Delivery Mode Room Air Allergies/Adverse Reactions: Penicillins Allergy (Verified 04/06/18 22:08) Home Medications: Medication Instructions Recorded NK [No Known Home Meds] 03/04/18 Departure - Departure Disposition: Home, Routine, Self-Care Clinical Impression: Alcohol intoxication Qualifiers: Complication of substance-induced condition: uncomplicated Qualified Code(s): F10.920 - Alcohol use, unspecified with intoxication, uncomplicated Condition: Good Instructions: Alcohol Intoxication (ED), Abuse of Alcohol (ED) Additional Instructions: 1. I encouraged you to stop drinking alcohol. Referrals: NONE *PRIMARY CARE P,. [Primary Care Provider] - As per Instructions [facility],. [Clinic] - As per Instructions
== END 2018-04-06 22:36 | disposition home or self-care (01) ==
LOC: EDUNIT#
DX: F10.920 Alcohol use, unspecified with intoxication, uncomplicated (principal); F17.200 Nicotine dependence, unspecified, uncomplicated; Z59.0 Homelessness; Z88.0 Allergy status to penicillin

== ENCOUNTER 2018-04-21 09:05 | Emergency (ER) | payer MEDICAID | END 2018-04-21 12:23 | disposition home or self-care (01) ==

== ENCOUNTER 2018-04-23 08:24 | Inpatient (IN) | payer MEDICAID ==
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
[2018-04-23] MEDS ORDERED: IOPAMIDOL (ISOVUE-300) 100 ML BTL ONE (11:18)
[2018-04-23 11:21] LABS: PLATELET COUNT 238 10^3/uL (150-400)
[2018-04-23] MEDS ORDERED: metroNIDAZOLE 500 MG TAB PO ONE (12:19)
[2018-04-23] MEDS ORDERED: IBUPROFEN 200 MG TAB PO PRN (13:05)
[2018-04-23] MEDS ORDERED: ONDANSETRON DISINTEGRATING 4 MG TAB PO PRN (13:05)
[2018-04-23] MEDS ORDERED: ONDANSETRON 4 MG/2 ML VIAL IVP PRN (13:05)
[2018-04-23] MEDS ORDERED: LORazepam 2 MG/ML INJ IVP PRN (13:40)
[2018-04-23] MEDS ORDERED: FLUMAZENIL 0.5 MG/5 ML MDV IVP PRN (13:40)
[2018-04-23] MEDS ORDERED: ACETAMINOPHEN 500 MG TAB PO SCH (14:00)
--- NOTE | 2018-04-23 14:16 | ASMTLACE ---
[facility] Comorbidities - select Answers: Opioid dependence all that apply / Chronic pain # of Emergency department Answers: 12+ visits in the last 6 months Social determinants Answers: History of substance abuse (ETOH, street drugs, prescription drugs, etc.) Homelessness (street, nursing home) Score: 16 Date Signed: 04/23/2018 02:15 PM Electronically Signed By:Adri Isbell
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
[2018-04-23] MEDS: KETOROLAC 30 MG/1 ML SDV IVP PRN ×2 (14:45→23:01)
--- NOTE | 2018-04-23 15:16 | GHP ---
[f rep st] HISTORY AND PHYSICAL DATE OF ADMISSION: 04/23/2018 CHIEF COMPLAINT: Lower abdominal pain, cough. 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 Drinks a pint of whiskey daily, last yesterday. Please see full H and P dictated by Eli Lopez NP. I evaluated and reviewed case with he r, agree with assessment and plan except as noted in my note. CT in the ER demonstrated sigmoid diverticulitis without perforation or abscess. Subacute L3 burst f racture. PHYSICAL EXAMINATION: VITAL SIGNS: Temperature 36.6, blood pressure 145/73, heart rate in the 60s, respirations 18, 91% on room air. GENERAL: He is in no acute distress, lying in bed. HEENT: PERRL A. Moist mucous membranes. CV: Regular rate and rhythm. LUNGS: Clear. ABDOMEN: Mild bilateral lower quadrant tenderness to palpation. No rebound or guarding. Positive bowel sounds. : No Fol ey. MUSCULOSKELETAL: Moving all 4 extremities. NEURO: Choreiform movements of extremities associa geovanny with Cosmos's. No tongue fasciculations or hand tremors. SKIN: Psoriatic lesions over his legs. No purulence or cellulitic skin changes. PSYCH: He is alert and oriented x3. ASSESSMENT AND PLAN: 1. Diverticulitis: No evidence of perforation/abscess. Afebrile without leukocytosis. We will liu at with IV Levaquin/Flagyl. We will transition to Augmentin when clinically improved. Clear diet. 2. L3 burst fracture: Does endorse difficulty urinating over the past 6 months. Unclear timing of this injury. No bowel or bladder incontinence. We will check a bladder scan to evaluate for retenti on. 3. Subacute L3 burst fracture: Dr. Blount with Neurosurgery has been consulted from the emergency r oom. 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 We will have Physical Therapy/Occupational Th erapy evaluate. 5. Alcohol dependence: Schedule vodka to prevent withdrawal. No evidence of withdrawal now. 6. Tobacco dependence: Nicotine patch. 7. Diet: Clear. DISPOSITION: Patient warrants inpatient admission given acute diverticulitis and L3 burst fracture r equiring IV antibiotics, Physical Therapy, Occupational Therapy, and Neurosurgery evaluation. /[id number]/MODL
[2018-04-23] MEDS: LIDOCAINE 4%/MENTHOL 1% PATCH TD SCH (15:35)
[2018-04-23] MEDS ORDERED: LORazepam 2 MG/ML INJ IV ONE (17:30)
[2018-04-23] MEDS: NICOTINE 21 MG/24 HR PATCH TD SCH (17:38)
[2018-04-23] MEDS ORDERED: VODKA 50 ML BOTTLE PO SCH (18:00)
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
[2018-04-23] MEDS: VODKA 50 ML BOTTLE PO SCH (20:55)
[2018-04-23] MEDS: PATCH REMOVAL 1 EA PATCH TD SCH (21:01)
[2018-04-23] MEDS: LORazepam 0.5 MG TAB PO PRN (23:08)
[2018-04-24] MEDS: traMADol 50 MG TAB PO PRN ×2 (04:05→10:52)
[2018-04-24 05:41] LABS: PLATELET COUNT 248 10^3/uL (150-400)
[2018-04-24] MEDS: KETOROLAC 30 MG/1 ML SDV IVP PRN ×2 (07:26→22:15)
[2018-04-24] MEDS: LIDOCAINE 4%/MENTHOL 1% PATCH TD SCH (07:26)
[2018-04-24] MEDS: VODKA 50 ML BOTTLE PO SCH ×2 (07:53→22:14)
--- NOTE | 2018-04-24 08:33 | NEUSURGPN ---
Assessment/Plan: Assessment: 53 yr old M with L3 subacute fracture without retropulsion Plan: -MRI lumbar shows subacute compression fracture of L3 without retropulsion. Moderate central stenosis from L2-4. No concerning compression to account for his intermittent leg weakness. -Will have [facility] fit with LSO brace to be worn when out of bed -PT/OT -Will continue to follow Patient discussed with Dr Mckenzie Subjective: patient worried about falling episodes Objective: AxOx 4 CN 2-12 grossly intact MAEx4 5/5 BUE, BLE Non tender to palpation across lumbar spine Neuro Check Frequency: per routine Urinary Catheter in Place: No - Physician Discussed Patient with : [facility] Physical Exam - Vitals, I&O, Labs I and O 04/23/18 04/24/18 04/25/18 05:59 05:59 05:59 Intake Total 600 Output Total 100 175 Balance 500 -175 Intake: Oral (ml) 600 Output: Urine (ml) 100 175 Bedside Commode 100 175 Other: Number of Voids Bedside Commode 1 Bladder Scan Volume (ml) Bedside Commode 340 Post Void Residual Scan Volume (ml) Bedside Commode 154 Vital Signs Temp Pulse Resp BP Pulse Ox 36.6 C 66 16 142/85 H 92 04/24/18 07:10 04/24/18 07:10 04/24/18 07:10 04/24/18 07:10 04/24/18 07:10 Laboratory Results 04/24/18 04:38 04/24/18 04:38 ICD10 Worksheet Patient Problems: Problems Problem Status Onset Diverticulitis of sigmoid colon Acute History of [place]'s disease Acute History of alcohol abuse Acute Alcohol intoxication Acute Alcohol use disorder, severe, in controlled environment Acute Body lice Acute Cellulitis of finger of right hand Acute Drug-seeking behavior Acute Esophageal foreign body Acute Head injury Acute Homelessness Acute Liver nodule Acute Nicotine dependence Acute Occipital scalp laceration Acute Psoriasis Acute Rib fractures Acute Septic arthritis Acute Suicidal ideation Acute Suicide attempt Acute Depression Chronic
--- NOTE | 2018-04-24 08:49 | PDMN ---
Medical Necessity Medical necessity: Change to IP, as of 04/23/18, per MD & MCG MG-MD Musculoskeletal Disease; los >2 mn for ongoing management of L3 burst fx w/ difficulty urinating & acute diverticulitis; requiring further monitoring, IV abx, Neurosurgery consult & therapies; hx huntingtons, frequent falls, homelessness, alcoholism
[2018-04-24] MEDS: THIAMINE HCL 500 MG in NS 100 ML IV SCH (09:20)
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
[2018-04-24] MEDS: LORazepam 0.5 MG TAB PO PRN (14:24)
--- NOTE | 2018-04-24 16:10 | ASMTCMCOM ---
CM Note CM Note Notes: CM submit ULTC 100 and initiated SNF referrals. Plan: TBD Date Signed: 04/24/2018 04:10 PM Electronically Signed By:SRINI Heard
[2018-04-24] MEDS: NICOTINE 21 MG/24 HR PATCH TD SCH (17:35)
--- NOTE | 2018-04-24 17:36 | HOSPPROG ---
Hospitalist Progress Note Assessment/Plan: #Diverticulitis: abd pain improved. Eating. Change to PO abx tomorrow #L3 burst fx: subacute, brace when out of bed #[place]'s: PT evaluating #Etoh dependence: scheduled Vodka #Tobacco dependence: brisa patch #Skin lesions: needs derm outpatient eval #DVT ppx: SCDs #Disp: inpatient admission for IV abx, PT Subjective: min abd pain Objective: Vital Signs Temp Pulse Resp BP Pulse Ox 36.6 C 66 16 151/90 H 92 04/24/18 15:41 04/24/18 15:41 04/24/18 15:41 04/24/18 15:41 04/24/18 15:41 Laboratory Results 04/24/18 04:38 04/24/18 04:38 04/23/18 04/24/18 04/25/18 05:59 05:59 05:59 Intake Total 600 1455 Output Total 100 175 Balance 500 1280 - Time Spent With Patient Time Spent with Patient: greater than 35 minutes Time Spent with Patient: Greater than 35 minutes spent on this patients care, greater than 50% of time spent counseling, educating, and coordinating care regarding the above mentioned plan. - Physical Exam Constitutional: no apparent distress Eyes: PERRL Ears, Nose, Mouth, Throat: moist mucous membranes Cardiovascular: regular rate and rhythym Respiratory: no respiratory distress Gastrointestinal: normoactive bowel sounds, tenderness (min in LLQ) Genitourinary: no bladder fullness Skin: warm, rash (plaque-like lesions on legs) Musculoskeletal: full muscle strength Neurologic: AAOx3, CN II-XII Intact Psychiatric: interacting appropriately, poor insight, poor judgement ICD10 Worksheet Patient Problems: Problems Problem Status Onset Diverticulitis of sigmoid colon Acute History of Moose's disease Acute History of alcohol abuse Acute Alcohol intoxication Acute Alcohol use disorder, severe, in controlled environment Acute Body lice Acute Cellulitis of finger of right hand Acute Drug-seeking behavior Acute Esophageal foreign body Acute Head injury Acute Homelessness Acute Liver nodule Acute Nicotine dependence Acute Occipital scalp laceration Acute Psoriasis Acute Rib fractures Acute Septic arthritis Acute Suicidal ideation Acute Suicide attempt Acute Depression Chronic
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
[2018-04-24] MEDS: PATCH REMOVAL 1 EA PATCH TD SCH (22:08)
[2018-04-25] MEDS: KETOROLAC 30 MG/1 ML SDV IVP PRN ×4 (05:20→22:58)
--- NOTE | 2018-04-25 07:44 | SOAPPROG ---
SOAP Progress Note Assessment/Plan: Assessment: 53 yr old M with L3 subacute fracture without retropulsion. Plan: -MRI lumbar shows subacute compression fracture of L3 without retropulsion. Moderate central stenosis from L2-4. No concerning compression to account for his intermittent leg weakness. -Tolerating brace -PT/OT -Will sign off and have him follow up in 2 weeks in clinic with repeat xrays -Plan d/w Dr. Mckenzie. Subjective: In bed, no new issues. He reports this anterior thighs still feel tingly. He has ambulated in brace without worsened pain. Objective: AxOx 4 CN 2-12 grossly intact MAEx4 5/5 BUE, BLE Neuro Check Frequency: per routine Urinary Catheter in Place: No Objective: Vital Signs Temp Pulse Resp BP Pulse Ox 36.5 C 621 H 16 131/79 H 91 L 04/25/18 07:17 04/25/18 07:17 04/25/18 07:17 04/25/18 07:17 04/25/18 07:17 Laboratory Results 04/24/18 04:38 04/24/18 04:38 04/24/18 04/25/18 04/26/18 05:59 05:59 05:59 Intake Total 600 1855 403 Output Total 100 175 Balance 500 1680 403 ICD10 Worksheet Patient Problems: Problems Problem Status Onset Diverticulitis of sigmoid colon Acute History of Moose's disease Acute History of alcohol abuse Acute Alcohol intoxication Acute Alcohol use disorder, severe, in controlled environment Acute Body lice Acute Cellulitis of finger of right hand Acute Drug-seeking behavior Acute Esophageal foreign body Acute Head injury Acute Homelessness Acute Liver nodule Acute Nicotine dependence Acute Occipital scalp laceration Acute Psoriasis Acute Rib fractures Acute Septic arthritis Acute Suicidal ideation Acute Suicide attempt Acute Depression Chronic
[2018-04-25] MEDS: THIAMINE HCL 500 MG in NS 100 ML IV SCH (08:07)
[2018-04-25] MEDS: VODKA 50 ML BOTTLE PO SCH ×2 (08:08→20:48)
[2018-04-25] MEDS: LIDOCAINE 4%/MENTHOL 1% PATCH TD SCH (09:05)
--- NOTE | 2018-04-25 15:57 | HOSPPROG ---
Hospitalist Progress Note Assessment/Plan: #Diverticulitis: abd pain improved. Change to Augmentin (has PCN-allergy, denies anaphylaxis (Day 3/) #L3 burst fx: subacute, brace when out of bed. MADIHA Mckenize 2 weeks #Moose's: falling daily, PT evaluating. CM placed referrals for SNF, LTC #Etoh dependence: scheduled Vodka #Tobacco dependence: brisa patch #Skin lesions: per pt, biopsied not psoriasis #Diet: regular #DVT ppx: Lovenox #Disp: inpatient admission for ongoing PT Subjective: no abd pain, eating ok. Wearing brace out of bed Objective: Vital Signs Temp Pulse Resp BP Pulse Ox 36.9 C 60 18 128/86 H 94 04/25/18 15:19 04/25/18 15:19 04/25/18 15:19 04/25/18 15:19 04/25/18 15:19 Laboratory Results 04/24/18 04:38 04/24/18 04:38 04/24/18 04/25/18 04/26/18 05:59 05:59 05:59 Intake Total 600 1855 403 Output Total 100 175 Balance 500 1680 403 - Time Spent With Patient Time Spent with Patient: greater than 35 minutes Time Spent with Patient: Greater than 35 minutes spent on this patients care, greater than 50% of time spent counseling, educating, and coordinating care regarding the above mentioned plan. ICD10 Worksheet Patient Problems: Problems Problem Status Onset Diverticulitis of sigmoid colon Acute History of [place]ull[place]'s disease Acute History of alcohol abuse Acute Alcohol intoxication Acute Alcohol use disorder, severe, in controlled environment Acute Body lice Acute Cellulitis of finger of right hand Acute Drug-seeking behavior Acute Esophageal foreign body Acute Head injury Acute Homelessness Acute Liver nodule Acute Nicotine dependence Acute Occipital scalp laceration Acute Psoriasis Acute Rib fractures Acute Septic arthritis Acute Suicidal ideation Acute Suicide attempt Acute Depression Chronic
[2018-04-25] MEDS: ENOXAPARIN 40 MG/0.4 ML SYR SC SCH (16:52)
[2018-04-25] MEDS: NICOTINE 21 MG/24 HR PATCH TD SCH (16:52)
--- NOTE | 2018-04-25 17:51 | ASMTCMCOM ---
CM Note CM Note Notes: Saroj from [facility] is waiting for word from the [facility]. Will evaluate patient on Saturday, -. Date Signed: 04/25/2018 05:51 PM Electronically Signed By:Kimmy Chen RN
[2018-04-25] MEDS: LORazepam 0.5 MG TAB PO PRN (20:48)
[2018-04-25] MEDS: AMOXICILLIN/CLAVULANATE POT 875/125 MG TAB PO SCH (20:48)
[2018-04-25] MEDS: traMADol 50 MG TAB PO PRN (20:48)
[2018-04-25] MEDS: PATCH REMOVAL 1 EA PATCH TD SCH (20:50)
[2018-04-25] MEDS ORDERED: metroNIDAZOLE 500 MG TAB PO SCH (22:00)
[2018-04-26] MEDS: KETOROLAC 30 MG/1 ML SDV IVP PRN ×3 (05:02→19:32)
[2018-04-26] MEDS: ENOXAPARIN 40 MG/0.4 ML SYR SC SCH (09:24)
[2018-04-26] MEDS: THIAMINE HCL 500 MG in NS 100 ML IV SCH (09:24)
[2018-04-26] MEDS: LIDOCAINE 4%/MENTHOL 1% PATCH TD SCH (09:25)
[2018-04-26] MEDS: AMOXICILLIN/CLAVULANATE POT 875/125 MG TAB PO SCH ×2 (09:25→20:42)
[2018-04-26] MEDS: VODKA 50 ML BOTTLE PO SCH ×2 (09:25→20:42)
--- NOTE | 2018-04-26 10:10 | HOSPPROG ---
Hospitalist Progress Note Assessment/Plan: 53yo homeless M with soco's and alcoholism here with abdominal pain and frequent falls. #Diverticulitis: abd pain resolved. Changed to Augmentin (has PCN-allergy, denies anaphylaxis (Day 4) #L3 burst fx: subacute, brace when out of bed. MADIHA Mckenzie 2 weeks #[place]'s: falling daily, PT evaluating. CM placed referrals for SNF, LTC #Etoh dependence: scheduled Vodka #Tobacco dependence: brisa patch #Skin lesions: per pt, biopsied not psoriasis #Diet: regular #DVT ppx: Lovenox #Disp: inpatient admission for ongoing PT Subjective: Some low back pain, no new leg weakness/numbness. Abdominal pain resolved, no n/v/d. No fevers. No falls Objective: Vital Signs Temp Pulse Resp BP Pulse Ox 36.3 C 59 L 18 132/104 H 91 L 04/26/18 07:07 04/26/18 07:07 04/26/18 07:07 04/26/18 07:07 04/26/18 07:07 Laboratory Results 04/24/18 04:38 04/24/18 04:38 04/25/18 04/26/18 04/27/18 05:59 05:59 06:59 Intake Total 1855 2103 350 Output Total 175 Balance 1680 2103 350 - Physical Exam Constitutional: no apparent distress, appears nourished Eyes: PERRL, anicteric sclera Ears, Nose, Mouth, Throat: moist mucous membranes Cardiovascular: regular rate and rhythym, no murmur, rub, or gallop Respiratory: no respiratory distress, no rales or rhonchi, clear to auscultation Gastrointestinal: normoactive bowel sounds, soft, non-tender abdomen, no palpable masses Genitourinary: no bladder fullness, no bladder tenderness, no renal bruits Skin: no rashes or abrasions, no fluctuance, no induration Neurologic: AAOx3 Psychiatric: interacting appropriately ICD10 Worksheet Patient Problems: Problems Problem Status Onset Diverticulitis of sigmoid colon Acute History of [place]'s disease Acute History of alcohol abuse Acute Alcohol intoxication Acute Alcohol use disorder, severe, in controlled environment Acute Body lice Acute Cellulitis of finger of right hand Acute Drug-seeking behavior Acute Esophageal foreign body Acute Head injury Acute Homelessness Acute Liver nodule Acute Nicotine dependence Acute Occipital scalp laceration Acute Psoriasis Acute Rib fractures Acute Septic arthritis Acute Suicidal ideation Acute Suicide attempt Acute Depression Chronic
[2018-04-26] MEDS: traMADol 50 MG TAB PO PRN (15:43)
[2018-04-26] MEDS: NICOTINE 21 MG/24 HR PATCH TD SCH (16:55)
[2018-04-26] MEDS: LORazepam 0.5 MG TAB PO PRN (20:41)
[2018-04-26] MEDS: PATCH REMOVAL 1 EA PATCH TD SCH (20:44)
[2018-04-27] MEDS: KETOROLAC 30 MG/1 ML SDV IVP PRN ×4 (01:22→22:16)
[2018-04-27] MEDS: LORazepam 0.5 MG TAB PO PRN ×2 (04:18→22:15)
[2018-04-27] MEDS: VODKA 50 ML BOTTLE PO SCH ×2 (08:05→19:58)
[2018-04-27] MEDS: ENOXAPARIN 40 MG/0.4 ML SYR SC SCH (08:05)
[2018-04-27] MEDS: THIAMINE HCL 100 MG TAB PO SCH (08:05)
[2018-04-27] MEDS: AMOXICILLIN/CLAVULANATE POT 875/125 MG TAB PO SCH ×2 (08:05→19:58)
[2018-04-27] MEDS: LIDOCAINE 4%/MENTHOL 1% PATCH TD SCH (08:06)
--- NOTE | 2018-04-27 11:17 | HOSPPROG ---
Hospitalist Progress Note Assessment/Plan: 53yo homeless M with soco's and alcoholism here with abdominal pain and frequent falls. #Diverticulitis: abd pain resolved. Changed to Augmentin (has PCN-allergy, denies anaphylaxis (Day 06/24) #L3 burst fx: subacute, brace when out of bed. MADIHA Mckenzie 2 weeks #[place]'s: falling daily, PT evaluating. CM placed referrals for SNF, LTC #Etoh dependence: scheduled Vodka #Tobacco dependence: brisa patch #Skin lesions: per pt, biopsied not psoriasis #Diet: regular #DVT ppx: Lovenox #Disp: inpatient admission for ongoing PT Subjective: Walked 2.5 laps yesterday with PT. Was wearing brace. Abdominal pain resolved. Wondering when he[facility] go to [facility]. Objective: Vital Signs Temp Pulse Resp BP Pulse Ox 36.6 C 64 18 148/95 H 94 04/27/18 08:00 04/27/18 08:00 04/27/18 08:00 04/27/18 08:00 04/27/18 08:00 Laboratory Results 04/24/18 04:38 04/24/18 04:38 04/26/18 04/27/18 04/28/18 04:59 05:59 05:59 Intake Total Balance - Physical Exam Constitutional: no apparent distress, appears nourished, not in pain Eyes: PERRL, anicteric sclera, EOMI Ears, Nose, Mouth, Throat: moist mucous membranes, hearing normal, ears appear normal, no oral mucosal ulcers Cardiovascular: regular rate and rhythym, no murmur, rub, or gallop Respiratory: no respiratory distress, no rales or rhonchi, clear to auscultation Gastrointestinal: normoactive bowel sounds, soft, non-tender abdomen, no palpable masses Genitourinary: no bladder fullness, no bladder tenderness, no renal bruits Skin: other (erythematous lesions in BLE) Musculoskeletal: other (occasional choreaform movements) Neurologic: AAOx3 Psychiatric: interacting appropriately ICD10 Worksheet Patient Problems: Problems Problem Status Onset Diverticulitis of sigmoid colon Acute History of [place]'s disease Acute History of alcohol abuse Acute Alcohol intoxication Acute Alcohol use disorder, severe, in controlled environment Acute Body lice Acute Cellulitis of finger of right hand Acute Drug-seeking behavior Acute Esophageal foreign body Acute Head injury Acute Homelessness Acute Liver nodule Acute Nicotine dependence Acute Occipital scalp laceration Acute Psoriasis Acute Rib fractures Acute Septic arthritis Acute Suicidal ideation Acute Suicide attempt Acute Depression Chronic
[2018-04-27] MEDS: traMADol 50 MG TAB PO PRN ×2 (13:48→19:57)
[2018-04-27] MEDS: TRIAMCINOLONE 0.025% 15 GM CRTUBE TP PRN ×2 (13:48→21:06)
[2018-04-27] MEDS: NICOTINE 21 MG/24 HR PATCH TD SCH (15:47)
[2018-04-27] MEDS: PATCH REMOVAL 1 EA PATCH TD SCH (20:36)
[2018-04-28] MEDS: ENOXAPARIN 40 MG/0.4 ML SYR SC SCH (08:02)
[2018-04-28] MEDS: THIAMINE HCL 100 MG TAB PO SCH (08:03)
[2018-04-28] MEDS: LIDOCAINE 4%/MENTHOL 1% PATCH TD SCH (08:03)
[2018-04-28] MEDS: AMOXICILLIN/CLAVULANATE POT 875/125 MG TAB PO SCH ×2 (08:03→20:34)
[2018-04-28] MEDS: traMADol 50 MG TAB PO PRN ×2 (08:03→15:06)
[2018-04-28] MEDS: VODKA 50 ML BOTTLE PO SCH ×2 (08:04→20:35)
[2018-04-28] MEDS: TRIAMCINOLONE 0.025% 15 GM CRTUBE TP PRN (08:16)
[2018-04-28] MEDS: KETOROLAC 30 MG/1 ML SDV IVP PRN (10:15)
--- NOTE | 2018-04-28 12:27 | ASMTCMCOM ---
MIKHAIL Note CM Note Notes: Saroj with [facility] on site today to evuluate patient. He will be speaking with his medical records administrator this afternoon and will f/u/w CM. [facility] is unable to accommodate. MIKHAIL will follow. Date Signed: 04/28/2018 12:27 PM Electronically Signed By:Kaylin Whitley RN
--- NOTE | 2018-04-28 15:06 | ASMTCMCOM ---
CM Note CM Note Notes: Spoke with Saroj at [facility], patient was declined on an administrative level due to prior admission and behavior issues. New referrals sent to the following facilities: [facility] Will continue to do SNF search. Also confirmed that [facility] has not screened patient for LTC - they will follow-up bello. CM will follow. Plan: Hopefully SNF pending acceptance. Date Signed: 04/28/2018 03:06 PM Electronically Signed By:Kaylin Whitley RN
--- NOTE | 2018-04-28 15:39 | HOSPPROG ---
Hospitalist Progress Note Assessment/Plan: 53yo homeless M with soco's and alcoholism here with abdominal pain and frequent falls. #Low back pain: tender over SI joint. trial ice, toradol. #Diverticulitis: abd pain resolved. Changed to Augmentin (has PCN-allergy, denies anaphylaxis (Day 6/) #L3 burst fx: subacute, brace when out of bed. FU Magaly 2 weeks #Soco's: falling daily, PT evaluating. CM placed referrals for SNF, LTC #Etoh dependence: scheduled Vodka #Tobacco dependence: brisa patch #Skin lesions: per pt, biopsied not psoriasis #Diet: regular #DVT ppx: Lovenox #Disp: inpatient admission for ongoing PT Subjective: More lower back pain today, right side. No new leg weakness/ numbness. No new urinary or bowel symptoms. Objective: Vital Signs Temp Pulse Resp BP Pulse Ox 36.4 C 50 L 16 141/87 H 95 04/28/18 15:28 04/28/18 15:28 04/28/18 15:28 04/28/18 15:28 04/28/18 15:28 Laboratory Results 04/24/18 04:38 04/24/18 04:38 04/27/18 04/28/18 04/29/18 05:59 05:59 05:59 Intake Total 2820 Balance 2820 - Physical Exam Constitutional: no apparent distress, appears nourished, not in pain Eyes: PERRL, anicteric sclera, EOMI Ears, Nose, Mouth, Throat: moist mucous membranes, hearing normal, ears appear normal, no oral mucosal ulcers Cardiovascular: regular rate and rhythym, no murmur, rub, or gallop Respiratory: no respiratory distress, no rales or rhonchi, clear to auscultation Gastrointestinal: normoactive bowel sounds, soft, non-tender abdomen, no palpable masses Genitourinary: no bladder fullness, no bladder tenderness, no renal bruits Skin: no rashes or abrasions, no fluctuance, no induration Musculoskeletal: other (ttp over right SI joint, no spinal process ttp) Neurologic: AAOx3 Psychiatric: interacting appropriately ICD10 Worksheet Patient Problems: Problems Problem Status Onset Diverticulitis of sigmoid colon Acute History of [place]'s disease Acute History of alcohol abuse Acute Alcohol intoxication Acute Alcohol use disorder, severe, in controlled environment Acute Body lice Acute Cellulitis of finger of right hand Acute Drug-seeking behavior Acute Esophageal foreign body Acute Head injury Acute Homelessness Acute Liver nodule Acute Nicotine dependence Acute Occipital scalp laceration Acute Psoriasis Acute Rib fractures Acute Septic arthritis Acute Suicidal ideation Acute Suicide attempt Acute Depression Chronic
[2018-04-28] MEDS: NICOTINE 21 MG/24 HR PATCH TD SCH (17:00)
[2018-04-28] MEDS: HYDROCODONE/APAP 5/325 TAB PO PRN ×2 (17:00→20:34)
[2018-04-28] MEDS: LORazepam 0.5 MG TAB PO PRN (20:34)
[2018-04-28] MEDS: PATCH REMOVAL 1 EA PATCH TD SCH (20:35)
[2018-04-29] MEDS: HYDROCODONE/APAP 5/325 TAB PO PRN ×2 (00:34→06:09)
[2018-04-29] MEDS: LORazepam 0.5 MG TAB PO PRN ×2 (06:09→13:25)
[2018-04-29] MEDS: ENOXAPARIN 40 MG/0.4 ML SYR SC SCH (08:20)
[2018-04-29] MEDS: LIDOCAINE 4%/MENTHOL 1% PATCH TD SCH (08:21)
[2018-04-29] MEDS: AMOXICILLIN/CLAVULANATE POT 875/125 MG TAB PO SCH ×2 (08:21→20:47)
[2018-04-29] MEDS: VODKA 50 ML BOTTLE PO SCH ×2 (08:22→20:46)
[2018-04-29] MEDS: THIAMINE HCL 100 MG TAB PO SCH (08:22)
[2018-04-29] MEDS: TRIAMCINOLONE 0.025% 15 GM CRTUBE TP PRN ×2 (08:26→16:23)
--- NOTE | 2018-04-29 14:10 | ASMTCMCOM ---
CM Note CM Note Notes: patient plan of care reivewed in am rounds. Placement problematic due to need for termination clerk medicaid. CM to follow. Plan: Attemptong to find placment. Date Signed: 04/29/2018 02:10 PM Electronically Signed By:Elsa Park RN
[2018-04-29] MEDS ORDERED: HYDROmorphONE/DILAUDID 1 MG/ML INJ IVP ONE (15:30)
[2018-04-29] MEDS ORDERED: POLYETHYLENE GLYCOL 3350 17 GM PKT PO PRN (15:31)
[2018-04-29] MEDS: NICOTINE 21 MG/24 HR PATCH TD SCH ×2 (16:23→21:12)
--- NOTE | 2018-04-29 18:37 | HOSPPROG ---
Hospitalist Progress Note Assessment/Plan: 53yo homeless M with soco's and alcoholism here with abdominal pain and frequent falls. #L3 burst fx: neuro intact. subacute, brace when out of bed. MADIHA Mckenzie 2 weeks #Low back pain: neuro intact. avoiding IV pain meds. trial oxycodone, flexeril PRN. #Diverticulitis: abd pain resolved. Changed to Augmentin (has PCN-allergy, denies anaphylaxis (Day 08/24) #[place]'s: falling daily, PT evaluating. CM placed referrals for SNF ( declined by [facility]), LTC #Etoh dependence: scheduled Vodka #Tobacco dependence: brisa patch #Skin lesions: per pt, biopsied not psoriasis #Diet: regular #DVT ppx: Lovenox #Disp: inpatient admission for ongoing PT Subjective: Reports worsened back pain to me. Says he can't take PO meds because he's allergic to all oral medications. Seen walking halls without pain with PT. Objective: Vital Signs Temp Pulse Resp BP Pulse Ox 36.2 C 66 16 137/85 H 92 04/29/18 15:47 04/29/18 15:47 04/29/18 15:47 04/29/18 15:47 04/29/18 15:47 Laboratory Results 04/24/18 04:38 04/24/18 04:38 04/28/18 04/29/18 04/30/18 05:59 05:59 05:59 Intake Total 2820 800 1500 Balance 2820 800 1500 - Physical Exam Constitutional: no apparent distress, appears nourished Eyes: PERRL, anicteric sclera Ears, Nose, Mouth, Throat: moist mucous membranes Cardiovascular: regular rate and rhythym, no murmur, rub, or gallop Respiratory: no respiratory distress, no rales or rhonchi, clear to auscultation Gastrointestinal: normoactive bowel sounds, soft, non-tender abdomen, no palpable masses Genitourinary: no bladder fullness, no bladder tenderness, no renal bruits Skin: no rashes or abrasions, no fluctuance, no induration Musculoskeletal: full muscle strength, no muscle tenderness Neurologic: AAOx3, other (no ankle clonus or hyperreflexia in lower extremities , sensation intact), No weakness Psychiatric: interacting appropriately ICD10 Worksheet Patient Problems: Problems Problem Status Onset Diverticulitis of sigmoid colon Acute History of [place]'s disease Acute History of alcohol abuse Acute Alcohol intoxication Acute Alcohol use disorder, severe, in controlled environment Acute Body lice Acute Cellulitis of finger of right hand Acute Drug-seeking behavior Acute Esophageal foreign body Acute Head injury Acute Homelessness Acute Liver nodule Acute Nicotine dependence Acute Occipital scalp laceration Acute Psoriasis Acute Rib fractures Acute Septic arthritis Acute Suicidal ideation Acute Suicide attempt Acute Depression Chronic
[2018-04-29] MEDS: CYCLOBENZAPRINE 10 MG TAB PO PRN (20:46)
[2018-04-29] MEDS: SENNOSIDES/DOCUSATE SODIUM TAB PO SCH (20:46)
[2018-04-29] MEDS: oxyCODONE IR 5 MG TAB PO PRN (20:47)
[2018-04-29] MEDS: PATCH REMOVAL 1 EA PATCH TD SCH (20:47)
[2018-04-30] MEDS: oxyCODONE IR 5 MG TAB PO PRN ×5 (06:26→22:25)
[2018-04-30] MEDS: CYCLOBENZAPRINE 10 MG TAB PO PRN ×3 (06:26→20:53)
[2018-04-30] MEDS: THIAMINE HCL 100 MG TAB PO SCH (10:07)
[2018-04-30] MEDS: ENOXAPARIN 40 MG/0.4 ML SYR SC SCH (10:07)
[2018-04-30] MEDS: SENNOSIDES/DOCUSATE SODIUM TAB PO SCH ×2 (10:08→20:53)
[2018-04-30] MEDS: LIDOCAINE 4%/MENTHOL 1% PATCH TD SCH (10:08)
[2018-04-30] MEDS: VODKA 50 ML BOTTLE PO SCH ×2 (10:16→20:53)
[2018-04-30] MEDS: TRIAMCINOLONE 0.025% 15 GM CRTUBE TP PRN (17:00)
[2018-04-30] MEDS: NICOTINE 21 MG/24 HR PATCH TD SCH (17:00)
[2018-04-30] MEDS: PATCH REMOVAL 1 EA PATCH TD SCH (22:18)
[2018-05-01] MEDS: oxyCODONE IR 5 MG TAB PO PRN ×4 (03:53→20:00)
[2018-05-01 04:36] LABS: PLATELET COUNT 379 10^3/uL (150-400)
[2018-05-01] MEDS: SENNOSIDES/DOCUSATE SODIUM TAB PO SCH ×2 (09:14→20:44)
[2018-05-01] MEDS: LIDOCAINE 4%/MENTHOL 1% PATCH TD SCH (09:14)
[2018-05-01] MEDS: ENOXAPARIN 40 MG/0.4 ML SYR SC SCH (09:14)
[2018-05-01] MEDS: VODKA 50 ML BOTTLE PO SCH (09:14)
[2018-05-01] MEDS: THIAMINE HCL 100 MG TAB PO SCH (09:14)
--- NOTE | 2018-05-01 11:27 | HOSPPROG ---
Hospitalist Progress Note Assessment/Plan: # diverticulitis - had completed course, but still has abd pain, slight increase in WBC - empirically restart unasyn for now - allergy is "skn burning" - check abd XR # duodenal thickening - will need GI consult, inpatient vs outpatient # L3 burst fracture with LE numbness and back pain - - discussed with Troy Porras - nsg will reassess - check L spine XR in brace - cont brace - cont PO pain meds # etOH - stop vodka today - he is receiving very little and unlikely to w/d at this point # tobacco dependence - nicotine patch # skin lesions - biopsied, not psoriasis # soco's - not clearly chorea on my assessment - palliative care consult Subjective: ongoing bilat LE numbness; worse abd pain; ambulating ok; we discussed stopping vodka Objective: Vital Signs Temp Pulse Resp BP Pulse Ox 36.8 C 62 14 126/74 H 93 05/01/18 08:00 05/01/18 08:00 05/01/18 08:00 05/01/18 08:00 05/01/18 08:00 Laboratory Results 05/01/18 04:22 05/01/18 04:22 04/30/18 05/01/18 05/02/18 05:59 05:59 05:59 Intake Total 2300 3900 Balance 2300 3900 chart reviewed MRI reviewed discussed with Troy Porras - Physical Exam Constitutional: unkempt, other (in L spine brace) Cardiovascular: regular rate and rhythym, no murmur, rub, or gallop Respiratory: no respiratory distress, no rales or rhonchi, clear to auscultation Gastrointestinal: soft, non-tender abdomen, no palpable masses, No guarding, No rebound ICD10 Worksheet Patient Problems: Problems Problem Status Onset Septic arthritis Acute Diverticulitis of sigmoid colon Acute History of alcohol abuse Acute History of [place]'s disease Acute Nicotine dependence Acute Esophageal foreign body Acute Suicidal ideation Acute Drug-seeking behavior Acute Homelessness Acute Alcohol use disorder, severe, in controlled environment Acute Alcohol intoxication Acute Suicide attempt Acute Head injury Acute Occipital scalp laceration Acute Rib fractures Acute Body lice Acute Psoriasis Acute Liver nodule Acute Cellulitis of finger of right hand Acute Depression Chronic
[2018-05-01] MEDS: AMPICILLIN/SULBACTAM 3 GM in NS 100 ML IV SCH ×2 (11:49→18:35)
[2018-05-01] MEDS ORDERED: AMPICILLIN/SULBACTAM 1.5 GM in NS 50 ML IV SCH (12:00)
--- NOTE | 2018-05-01 14:04 | NEUSURGPN ---
Subjective: 53 yo male with known L3 compression fracture now with some worsening numbness in his left leg. -X-rays performed today show stable compression fracture when compared to his prior imaging. -Prior MRI reviewed as well and no sigsn of any canal compromise or major foraminal stenosis -Strength is 5/5 in his BLE, does have a lot of numbness he states grossly throughout his BLE and some back pain as well. -Patient complains of back pain as well but is somewhat helped with the crace -Given other multiple comorbidities along with stable xrays and intact strength in his lower extremities, would not recommend doing another MRI at this time, and would not recommend kyphoplasty -Recommend continuing with brace when up and out of bed -Spoke with Dr. Beckford about this as well -Neurosurgery will sign off. Please call us with any other questions S: Patient complaining of worsening leg numbness mostly in the left but has numbness in his right leg as well. Also complaining of some back pain and frequent fall. O: NAD, VSS Alert, Awake MS: TTP over lower lumbar sine near L3 BLE 5/5= Sensation- hypoesthesia in BLE grossly - numbness - Physician Discussed Patient with Dr.: Mckenzie Neurosurgery Physical Exam - Vitals, I&O, Labs I and O 04/30/18 05/01/18 05/02/18 05:59 05:59 05:59 Intake Total 2300 3900 Balance 2300 3900 Intake: Oral (ml) 2300 3900 Other: Intake Quantity Yes Sufficient Number of Voids Toilet 5 1 1 Number of Stools Toilet 3 1 Vital Signs Temp Pulse Resp BP Pulse Ox 36.8 C 62 14 126/74 H 93 05/01/18 08:00 05/01/18 08:00 05/01/18 08:00 05/01/18 08:00 05/01/18 08:00 Laboratory Results 05/01/18 04:22 05/01/18 04:22 ICD10 Worksheet Patient Problems: Problems Problem Status Onset Diverticulitis of sigmoid colon Acute History of [place]'s disease Acute History of alcohol abuse Acute Alcohol intoxication Acute Alcohol use disorder, severe, in controlled environment Acute Body lice Acute Cellulitis of finger of right hand Acute Drug-seeking behavior Acute Esophageal foreign body Acute Head injury Acute Homelessness Acute Liver nodule Acute Nicotine dependence Acute Occipital scalp laceration Acute Psoriasis Acute Rib fractures Acute Septic arthritis Acute Suicidal ideation Acute Suicide attempt Acute Depression Chronic
--- NOTE | 2018-05-01 14:46 | ASMTCMCOM ---
CM Note CM Note Notes: Plan of care reviewed in am rounds. Call to [facility] to check status even though placement unlikely. [facility] reports last case closed in February. Resubmitted information. Patient likely to leave AMA as he is upset that MD cutting alcohol. Information and completed ULTC 100 faxed to [facility] confirmed receipt. Plan: Likely discharge to streets as patient unwilling to abstain from alcohol. Date Signed: 05/01/2018 02:45 PM Electronically Signed By:Elsa Park RN
[2018-05-01] MEDS: NICOTINE 21 MG/24 HR PATCH TD SCH (18:34)
[2018-05-01] MEDS: ACETAMINOPHEN 325 MG TAB PO PRN (19:59)
[2018-05-01] MEDS: CYCLOBENZAPRINE 10 MG TAB PO PRN (20:00)
[2018-05-01] MEDS: PATCH REMOVAL 1 EA PATCH TD SCH (20:45)
[2018-05-02] MEDS: AMPICILLIN/SULBACTAM 3 GM in NS 100 ML IV SCH ×5 (00:06→23:55)
[2018-05-02] MEDS: oxyCODONE IR 5 MG TAB PO PRN ×5 (00:06→19:58)
[2018-05-02] MEDS: ACETAMINOPHEN 325 MG TAB PO PRN ×2 (00:06→04:05)
[2018-05-02] MEDS: SENNOSIDES/DOCUSATE SODIUM TAB PO SCH ×2 (08:18→22:23)
[2018-05-02] MEDS: THIAMINE HCL 100 MG TAB PO SCH (08:19)
[2018-05-02] MEDS: CYCLOBENZAPRINE 10 MG TAB PO PRN (08:19)
[2018-05-02] MEDS: ENOXAPARIN 40 MG/0.4 ML SYR SC SCH (08:20)
[2018-05-02] MEDS: LIDOCAINE 4%/MENTHOL 1% PATCH TD SCH (08:21)
--- NOTE | 2018-05-02 10:01 | HOSPPROG ---
Hospitalist Progress Note Assessment/Plan: # diverticulitis - had completed course, but still has abd pain, slight increase in WBC - unasyn restarted yesterday - recheck CT abd # duodenal thickening - will need GI consult, outpatient # L3 burst fracture with LE numbness and back pain - - nsg not recommending any additional treatment or w/u - cont brace - cont PO pain meds # etOH abuse - stopped vodka yesterday # tobacco dependence - nicotine patch # skin lesions - biopsied, not psoriasis # soco's - not clearly chorea on my assessment - palliative care consult was requested Subjective: still c/o abd pain; also c/o back pain Objective: Vital Signs Temp Pulse Resp BP Pulse Ox 36.4 C 53 L 14 139/86 H 92 05/02/18 07:34 05/02/18 07:34 05/02/18 07:34 05/02/18 07:34 05/02/18 07:34 Laboratory Results 05/01/18 04:22 05/01/18 04:22 05/01/18 05/02/18 05/03/18 05:59 05:59 05:59 Intake Total 3900 2225 444 Balance 3900 2225 444 chart reviewed including NSG note XR reviewed - Physical Exam Constitutional: other (unconfortable) Cardiovascular: regular rate and rhythym, no murmur, rub, or gallop Respiratory: no respiratory distress, no rales or rhonchi, clear to auscultation Gastrointestinal: no palpable masses, other (soft, mild RLQ TTP), No guarding, No rebound ICD10 Worksheet Patient Problems: Problems Problem Status Onset Septic arthritis Acute Diverticulitis of sigmoid colon Acute History of alcohol abuse Acute History of [place]'s disease Acute Nicotine dependence Acute Esophageal foreign body Acute Suicidal ideation Acute Drug-seeking behavior Acute Homelessness Acute Alcohol use disorder, severe, in controlled environment Acute Alcohol intoxication Acute Suicide attempt Acute Head injury Acute Occipital scalp laceration Acute Rib fractures Acute Body lice Acute Psoriasis Acute Liver nodule Acute Cellulitis of finger of right hand Acute Depression Chronic
[2018-05-02] MEDS ORDERED: IOPAMIDOL (ISOVUE-300) 100 ML BTL ONE (11:53)
[2018-05-02] MEDS: NICOTINE 21 MG/24 HR PATCH TD SCH (18:38)
[2018-05-02] MEDS: ZOLPIDEM TARTRATE 5 MG TAB PO PRN (20:33)
[2018-05-02] MEDS: diphenhydrAMINE 25 MG CAP PO PRN (22:32)
[2018-05-02] MEDS: PATCH REMOVAL 1 EA PATCH TD SCH (22:33)
[2018-05-03] MEDS: MELATONIN 3 MG TAB PO SCH ×2 (00:56→22:10)
[2018-05-03 05:34] LABS: PLATELET COUNT 392 10^3/uL (150-400)
[2018-05-03] MEDS: AMPICILLIN/SULBACTAM 3 GM in NS 100 ML IV SCH ×2 (05:46→12:12)
[2018-05-03] MEDS: oxyCODONE IR 5 MG TAB PO PRN ×4 (08:18→22:09)
[2018-05-03] MEDS: SENNOSIDES/DOCUSATE SODIUM TAB PO SCH ×2 (08:18→22:10)
[2018-05-03] MEDS: ENOXAPARIN 40 MG/0.4 ML SYR SC SCH (08:18)
[2018-05-03] MEDS: THIAMINE HCL 100 MG TAB PO SCH (08:18)
[2018-05-03] MEDS: LIDOCAINE 4%/MENTHOL 1% PATCH TD SCH (08:19)
--- NOTE | 2018-05-03 09:31 | HOSPPROG ---
Hospitalist Progress Note Assessment/Plan: #Diverticulitis: completed course abx -05/02, c/o right-sided abd pain. Min on exam, may be muscular. Repeat CT with no abscess, infection -afebrile. Hold abx and monitor #L3 burst fx: subacute, brace when out of bed. FU Magaly 2 weeks #[place]'s: falling daily, PT evaluating. CM placed referrals for SNF, LTC #Etoh dependence: no signs w/d #Tobacco dependence: brisa patch #Skin lesions: per pt, biopsied not psoriasis #Diet: regular #DVT ppx: Lovenox #Disp: inpatient admission for ongoing PT/OT. CM assisting with placement which is difficult given Etoh hx Subjective: mild RLQ pain with cough Objective: Vital Signs Temp Pulse Resp BP Pulse Ox 36.6 C 57 L 20 135/78 H 90 L 05/03/18 08:00 05/03/18 08:00 05/03/18 08:00 05/03/18 08:00 05/03/18 08:00 Laboratory Results 05/03/18 04:40 05/03/18 04:40 05/02/18 05/03/18 05/04/18 05:59 05:59 05:59 Intake Total 2225 2094 Balance 2225 2094 - Time Spent With Patient Time Spent with Patient: greater than 35 minutes Time Spent with Patient: Greater than 35 minutes spent on this patients care, greater than 50% of time spent counseling, educating, and coordinating care regarding the above mentioned plan. - Physical Exam Constitutional: no apparent distress Eyes: PERRL Ears, Nose, Mouth, Throat: moist mucous membranes Cardiovascular: regular rate and rhythym Respiratory: no respiratory distress Gastrointestinal: normoactive bowel sounds, tenderness (min RLQ TTP), No rebound , No distension Genitourinary: no bladder fullness Skin: warm, other (plaque-lesions over BL legs. No purulence, cellulitis) Musculoskeletal: full muscle strength Neurologic: AAOx3, CN II-XII Intact Psychiatric: poor insight, poor judgement, poor memory ICD10 Worksheet Patient Problems: Problems Problem Status Onset Diverticulitis of sigmoid colon Acute History of [place]'s disease Acute History of alcohol abuse Acute Alcohol intoxication Acute Alcohol use disorder, severe, in controlled environment Acute Body lice Acute Cellulitis of finger of right hand Acute Drug-seeking behavior Acute Esophageal foreign body Acute Head injury Acute Homelessness Acute Liver nodule Acute Nicotine dependence Acute Occipital scalp laceration Acute Psoriasis Acute Rib fractures Acute Septic arthritis Acute Suicidal ideation Acute Suicide attempt Acute Depression Chronic
--- NOTE | 2018-05-03 12:38 | ASMTCMCOM ---
CM Note CM Note Notes: Pts case discussed w/ Dr. Licona. Therapies continue to recommending SNF. Pt is homeless, has a high chance of leaving AMA, and is not interested in giving up etoh. Pt has had bad behaviors from previous SNFs that he has been to as well. Azeb w/ spiritual care is recommending a referral made to hospice. CM sent an email to [facility] to see where the process of LTC medicaid is. CM sent additional referrals to SNF. CM to discuss Saturday AM w/ Ruthann. CM to follow. Plan: TBD Date Signed: 05/03/2018 12:38 PM Electronically Signed By:SRINI Frederick
[2018-05-03] MEDS: NICOTINE 21 MG/24 HR PATCH TD SCH (17:34)
[2018-05-03] MEDS: diphenhydrAMINE 25 MG CAP PO PRN (22:08)
[2018-05-03] MEDS: CYCLOBENZAPRINE 10 MG TAB PO PRN (22:09)
[2018-05-03] MEDS: ZOLPIDEM TARTRATE 5 MG TAB PO PRN (22:10)
[2018-05-03] MEDS: PATCH REMOVAL 1 EA PATCH TD SCH (22:12)
[2018-05-04] MEDS: SENNOSIDES/DOCUSATE SODIUM TAB PO SCH ×2 (08:02→21:03)
[2018-05-04] MEDS: oxyCODONE IR 5 MG TAB PO PRN ×4 (08:16→21:00)
[2018-05-04] MEDS: THIAMINE HCL 100 MG TAB PO SCH (08:17)
[2018-05-04] MEDS: LIDOCAINE 4%/MENTHOL 1% PATCH TD SCH (08:17)
[2018-05-04] MEDS: ENOXAPARIN 40 MG/0.4 ML SYR SC SCH (08:20)
--- NOTE | 2018-05-04 12:04 | HOSPPROG ---
Hospitalist Progress Note Assessment/Plan: #Leukocytosis: WBC up to 16 -abd CT showed no abscess perf. Did show RLL opacity which could represent PNA. CXR with increased BL opacities -CT abd and CXR reviewed with Dr. Almendarez #HAP: add Cefepime. Afebrile #Diverticulitis: completed course abx -05/02, c/o right-sided abd pain. Min on exam, may be muscular. Repeat CT with no abscess, infection #L3 burst fx: subacute, brace when out of bed. MADIHA Mckenzie 2 weeks #Mills's: falling daily, PT evaluating. CM placed referrals for SNF, LTC #Etoh dependence: no signs w/d #Tobacco dependence: brisa patch #Skin lesions: per pt, biopsied not psoriasis #Diet: regular #DVT ppx: Lovenox #Disp: inpatient admission for ongoing PT/OT. CM assisting with placement which is difficult given Etoh hx Subjective: new cough overnight. Vomiting Objective: Vital Signs Temp Pulse Resp BP Pulse Ox 37.0 C 68 16 121/75 H 86 L 05/04/18 07:51 05/04/18 07:51 05/04/18 07:51 05/04/18 07:51 05/04/18 07:51 Laboratory Results 05/04/18 05:00 05/03/18 04:40 05/03/18 05/04/18 05/05/18 05:59 05:59 05:59 Intake Total 20930 Balance 2093 2239 - Time Spent With Patient Time Spent with Patient: greater than 35 minutes Time Spent with Patient: Greater than 35 minutes spent on this patients care, greater than 50% of time spent counseling, educating, and coordinating care regarding the above mentioned plan. - Physical Exam Constitutional: no apparent distress Eyes: PERRL Ears, Nose, Mouth, Throat: moist mucous membranes Cardiovascular: regular rate and rhythym Respiratory: other (decreased BS at bases) Gastrointestinal: normoactive bowel sounds Genitourinary: no bladder fullness Skin: warm, other (plaque lesions on legs. No purulence or cellulits) Musculoskeletal: full muscle strength Neurologic: AAOx3, CN II-XII Intact Psychiatric: interacting appropriately Lymph, Heme, Immunologic: no cervical LAD ICD10 Worksheet Patient Problems: Problems Problem Status Onset Diverticulitis of sigmoid colon Acute History of Mills's disease Acute History of alcohol abuse Acute Alcohol intoxication Acute Alcohol use disorder, severe, in controlled environment Acute Body lice Acute Cellulitis of finger of right hand Acute Drug-seeking behavior Acute Esophageal foreign body Acute Head injury Acute Homelessness Acute Liver nodule Acute Nicotine dependence Acute Occipital scalp laceration Acute Psoriasis Acute Rib fractures Acute Septic arthritis Acute Suicidal ideation Acute Suicide attempt Acute Depression Chronic
[2018-05-04] MEDS: TRIAMCINOLONE 0.025% 15 GM CRTUBE TP PRN (14:42)
[2018-05-04] MEDS: CEFEPIME HCL 2 GM in NS 100 ML IV SCH ×2 (14:43→21:01)
[2018-05-04] MEDS: NICOTINE 21 MG/24 HR PATCH TD SCH (16:40)
[2018-05-04] MEDS: MAGNESIUM HYDROXIDE 30 ML UDCUP PO PRN ×2 (17:22→20:43)
[2018-05-04] MEDS: diphenhydrAMINE 25 MG CAP PO PRN (20:44)
[2018-05-04] MEDS: MELATONIN 3 MG TAB PO SCH (20:44)
[2018-05-04] MEDS: CYCLOBENZAPRINE 10 MG TAB PO PRN (20:44)
[2018-05-04] MEDS: ZOLPIDEM TARTRATE 5 MG TAB PO PRN (21:01)
[2018-05-04] MEDS: PATCH REMOVAL 1 EA PATCH TD SCH (21:03)
[2018-05-05] MEDS: oxyCODONE IR 5 MG TAB PO PRN ×6 (00:42→20:29)
[2018-05-05] MEDS: CEFEPIME HCL 2 GM in NS 100 ML IV SCH (05:56)
[2018-05-05] MEDS: ENOXAPARIN 40 MG/0.4 ML SYR SC SCH (11:04)
[2018-05-05] MEDS: LIDOCAINE 4%/MENTHOL 1% PATCH TD SCH ×2 (11:04→14:18)
[2018-05-05] MEDS: THIAMINE HCL 100 MG TAB PO SCH (11:04)
[2018-05-05] MEDS: SENNOSIDES/DOCUSATE SODIUM TAB PO SCH ×2 (11:04→20:29)
[2018-05-05] MEDS: TRIAMCINOLONE 0.025% 15 GM CRTUBE TP PRN (11:04)
[2018-05-05] MEDS: ALBUTEROL 60 PUFFS/8 GM MDI IH PRN ×2 (12:05→18:16)
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
--- NOTE | 2018-05-05 13:16 | ASMTCMCOM ---
CM Note CM Note Notes: 05/05/2018 Case Management Note Phone call to [facility]. GABRIELA Gracia found no formal pysch dx. Pt stated Dr. Medrano of [facility] made initial dx of [place]'s. [facility] requesting records from Dr. Medrano. Samia can be reached at [phone] ext [phone]. Samia to call case management once records from Dr. Medrano arrive at [facility]. Pt multiple behavioral health admissions and M1/S1 holds. Case Management d/c poc: to be determined. Case Management to follow. Date Signed: 05/05/2018 01:15 PM Electronically Signed By:Carmenza Brewer RN
--- NOTE | 2018-05-05 13:18 | HOSPPROG ---
Hospitalist Progress Note Assessment/Plan: #Leukocytosis: resolved today. Suspect from PNA (CXR personally reviewed -CT abd/p shows no abscess or perf. Reviewed CT abd and CXR reviewed with Dr. Almendarez #HAP: change to Levaquin today (Day 2) #Diverticulitis: completed course abx -05/02, c/o right-sided abd pain. Min on exam, may be muscular. Repeat CT with no abscess, infection #L3 burst fx: subacute, brace when out of bed. MADIHA Mckenzie 2 weeks. No surgical intervention currently #Montezuma's: falling daily, PT evaluating. CM placed referrals for SNF, LTC #Etoh dependence: no signs w/d #Tobacco dependence: brisa patch #Skin lesions: per pt, biopsied not psoriasis #Diet: regular #DVT ppx: Lovenox #Disp: inpatient admission for ongoing PT/OT. CM assisting with placement which is difficult given Etoh hx. May have to DC to [facility] Subjective: cough improved today Objective: Vital Signs Temp Pulse Resp BP Pulse Ox 36.6 C 62 16 100/79 92 05/05/18 08:27 05/05/18 08:27 05/05/18 08:27 05/05/18 08:27 05/05/18 08:27 Laboratory Results 05/05/18 04:35 05/03/18 04:40 05/04/18 05/05/18 05/06/18 05:59 05:59 05:59 Intake Total 2240 2400 Balance 2240 2400 - Time Spent With Patient Time Spent with Patient: greater than 35 minutes Time Spent with Patient: Greater than 35 minutes spent on this patients care, greater than 50% of time spent counseling, educating, and coordinating care regarding the above mentioned plan. - Physical Exam Constitutional: no apparent distress Eyes: PERRL Ears, Nose, Mouth, Throat: moist mucous membranes Cardiovascular: regular rate and rhythym Respiratory: no respiratory distress Gastrointestinal: normoactive bowel sounds Genitourinary: No borrego in urethra Skin: other (plaque-like skin lesions over legs, no cellulitis) Neurologic: AAOx3, CN II-XII Intact Psychiatric: poor insight, poor judgement, poor memory ICD10 Worksheet Patient Problems: Problems Problem Status Onset Diverticulitis of sigmoid colon Acute History of Moose's disease Acute History of alcohol abuse Acute Alcohol intoxication Acute Alcohol use disorder, severe, in controlled environment Acute Body lice Acute Cellulitis of finger of right hand Acute Drug-seeking behavior Acute Esophageal foreign body Acute Head injury Acute Homelessness Acute Liver nodule Acute Nicotine dependence Acute Occipital scalp laceration Acute Psoriasis Acute Rib fractures Acute Septic arthritis Acute Suicidal ideation Acute Suicide attempt Acute Depression Chronic
[2018-05-05] MEDS ORDERED: CEPACOL LOZENGE PO PRN (14:17)
[2018-05-05] MEDS: NICOTINE 21 MG/24 HR PATCH TD SCH (17:33)
[2018-05-05] MEDS: MELATONIN 3 MG TAB PO SCH (20:29)
[2018-05-05] MEDS: PATCH REMOVAL 1 EA PATCH TD SCH (20:47)
[2018-05-05] MEDS: LORazepam 1 MG TAB PO PRN (22:08)
[2018-05-06] MEDS: LORazepam 1 MG TAB PO PRN ×2 (01:47→10:26)
[2018-05-06] MEDS: oxyCODONE IR 5 MG TAB PO PRN ×2 (01:47→08:29)
[2018-05-06 07:58] VITALS: BP 105/54
[2018-05-06] MEDS: LIDOCAINE 4%/MENTHOL 1% PATCH TD SCH (08:29)
[2018-05-06] MEDS: THIAMINE HCL 100 MG TAB PO SCH (08:30)
[2018-05-06] MEDS: ENOXAPARIN 40 MG/0.4 ML SYR SC SCH (08:30)
[2018-05-06] MEDS: SENNOSIDES/DOCUSATE SODIUM TAB PO SCH (08:30)
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
[2018-05-06] MEDS: CYCLOBENZAPRINE 10 MG TAB PO PRN (13:03)
--- NOTE | 2018-05-06 13:51 | ASMTDCNOTE ---
Case Management Discharge Discharge Order Complete? Answers: Yes Patient to Obtain Answers: Independently Medications Transportation Arranged Answers: Bus Tokens Discharge Comments Notes: Patient discharged to streets. I confirmed leta Bacon at the [facility] that patient is not banned and may return to [facility]. I gave him a bus pass. He was also given a wheelchair. I encouraged him to work with a correctional counselor/case manager at the [facility]. He has an appointment at the [facility] May 22. Date Signed: 05/06/2018 01:50 PM Electronically Signed By:Sybil Tena RN
--- NOTE | 2018-05-06 15:26 | PDDCSUM ---
Discharge Summary Discharge Summary: Date of Admission: 04/23/2018 Date of Discharge: 05/06/2018 Consults: CM Procedures: CT A/P Followup: [facility] Hospital Course Problem List: #Leukocytosis: resolved. Suspect from PNA -CT abd/p shows no abscess or perf. Reviewed CT abd and CXR reviewed with Dr. Almendarez #HAP: change to Levaquin on 05/05 (Day 3/5), will discharge with 2 additional days to complete 5 day course #Diverticulitis: completed course abx -05/02, c/o right-sided abd pain. Min on exam, may be muscular. Repeat CT with no abscess, infection #L3 burst fx: subacute, brace when out of bed. MADIHA Mckenzie 2 weeks. No surgical intervention currently #Moose's: falling daily, PT evaluating. CM placed referrals for SNF, LTC #Etoh dependence: no signs w/d #Tobacco dependence: brisa patch #Skin lesions: per pt, biopsied not psoriasis Time spent on discharge was >35 minutes with >50% of time spent on patient education and counseling.
[2018-05-06] MEDS ORDERED: oxyCODONE IR 5 MG TAB PO PRN (23:43)
[2018-05-06] MEDS ORDERED: LIDOCAINE 4%/MENTHOL 1% PATCH TD SCH (23:43)
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
[2018-05-07] MEDS ORDERED: PATCH REMOVAL 1 EA PATCH TD SCH (21:00)
== END 2018-05-06 14:35 | disposition home or self-care (01) | DRG 244 ==
LOC: EDUNIT# → F1N 13:14 → OBSVTOIN 15:45
PROVIDERS: ADMIT Internal Medicine; ATTEND Internal Medicine
DX: K57.32 Diverticulitis of large intestine without perforation or abscess without bleeding (principal); J18.9 Pneumonia, unspecified organism; G10 Huntington's disease; S32.031S Stable burst fracture of third lumbar vertebra, sequela; L98.9 Disorder of the skin and subcutaneous tissue, unspecified; Z98.1 Arthrodesis status; Z59.0 Homelessness; Z51.5 Encounter for palliative care; Z66 Do not resuscitate; Z91.81 History of falling; F10.20 Alcohol dependence, uncomplicated; F17.210 Nicotine dependence, cigarettes, uncomplicated
CPT/HCPCS: 82435-PO; 82565-PO; 82947-PO; 84132-PO; 84295-PO; 84520-PO; 85014-ER; 97116-GP; 97162-GP; 97166-GO; 97530-GO; 97530-GP; 97535-GO; J0295; J0692; J1170; J1650; J1885; J1956; J2060; J3411; Q9967

== ENCOUNTER 2018-05-06 20:52 | Observation (INO) | payer MEDICAID ==
--- NOTE | 2018-05-06 21:37 | EDPHY ---
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 Denies acute back trauma. He believes he was discharged from hospital prematurely. REVIEW OF SYSTEMS: 10 systems reviewed and negative with the exception of the elements mentioned in the history of present illness PAST MEDICAL & SURGICAL HISTORY: L3 burst fracture. Diverticulitis. Madill's disease. SOCIAL HISTORY:Homeless PHYSICAL EXAM (Prior to examination, patient consented to physical exam, hands were washed and my usual and customary physical exam procedures followed) 1) GENERAL: Well-developed, well-nourished, alert and oriented. Appears to be in no acute distress. 2) HEAD: Normocephalic, atraumatic 3) HEENT: Pupils equal, round, reactive to light bilaterally. Sclera anicteric. 4) NECK: Full range of motion, no meningeal signs. 5) LUNGS: Clear auscultation bilaterally, no wheezes, no rhonchi, no retractions. 6) HEART: Regular rate and rhythm, no murmur, no heave, no gallop. 7) ABDOMEN: No guarding, no rebound, no focal tenderness, negative McBurney's, negative Diez's, negative Rovsing's, negative peritoneal sign, 8) MUSCULOSKELETAL: Moving all extremities, no focal areas of tenderness, no obvious trauma. No peripheral edema or discoloration. Patella Achilles reflexes intact to bilateral strength 5/5. 9) BACK: No CVA tenderness, no midline vertebral tenderness, no fluctuance, no step-off, no obvious trauma, no visual or palpable abnormality. 10) SKIN: No rash, no petechiae. 11) Psychiatric: Patient is oriented X 3, there is no agitation. DIFFERENTIAL DIAGNOSIS: In no particular order including but not limited to Moose's disease, cauda equina, malingering, failure to thrive - Personal History Current Tetanus Diphtheria and Acellular Pertussis (TDAP): Unsure - Medical/Surgical History Hx Asthma: No Hx Chronic Respiratory Disease: No Hx Diabetes: No Hx Cardiac Disease: No Hx Renal Disease: No Hx Cirrhosis: No Hx Alcoholism: Yes Hx HIV/AIDS: No Hx Splenectomy or Spleen Trauma: No Other PMH: etoh abuse, huntingtons chorea neck surgery hand surgery with MRSA infection - Social History Smoking Status: Current every day smoker Constitutional: Initial Vital Signs Temperature (C) 36.8 C 05/06/18 20:57 Heart Rate 88 05/06/18 20:57 Respiratory Rate 20 05/06/18 20:57 Blood Pressure 138/88 H 05/06/18 20:57 O2 Sat (%) 93 05/06/18 20:57 O2 Delivery Mode Room Air Allergies/Adverse Reactions: Penicillins Allergy (Verified 04/25/18 16:26) Home Medications: Medication Instructions Recorded Lidocaine 4%/Menthol 1% [Icy Hot 1 patch TD DAILY patch 05/06/18 Lidocaine/Menthol 4%/1% Patch (*)] levOFLOXACIN [levAQUIN (*)] 750 mg PO Q24H #2 tab 05/06/18 Medical Decision Making ED Course/Re-evaluation: 9:37 p.m.: I am familiar with this patient. I reviewed his medical records. Care of patient under supervision of secondary supervising physician Dr Ballard . Will attempt to ambulate the patient 10:00 p.m.: Staff attempted to ambulate the patient. He is able to shuffle to the door with an unsteady gait with the assistance of 2-3 staff members. At this time I do not think the patient can be safely discharged the [facility]. I do not think the patient is able to care for himself. Will plan on hospital readmission. I consulted with Dr. Jama Grady this time who will admit patient. Will hold on any repeat imaging at this time. Departure - Departure Disposition: [facility] Inpatient Acute Clinical Impression: History of Madill's disease, Unable to ambulate Condition: Fair Referrals: NONE *PRIMARY CARE P,. [Primary Care Provider] - As per Instructions
[2018-05-06 22:27] LABS: PLATELET COUNT 372 10^3/uL (150-400)
[2018-05-06] MEDS ORDERED: ONDANSETRON DISINTEGRATING 4 MG TAB PO PRN (23:01)
[2018-05-06] MEDS ORDERED: ONDANSETRON 4 MG/2 ML VIAL IVP PRN (23:01)
[2018-05-06] MEDS ORDERED: LORazepam 0.5 MG TAB PO PRN (23:06)
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
[2018-05-07] MEDS: NICOTINE 14 MG/24 HR PATCH TD SCH (09:03)
[2018-05-07] MEDS: ACETAMINOPHEN 325 MG TAB PO PRN ×2 (09:49→15:14)
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
--- NOTE | 2018-05-07 11:09 | ASMTLACE ---
[facility] Length of stay for Answers: 1 day current admission Acuity / Level of Answers: No Care: Did the patient have an inpatient admission? 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
--- NOTE | 2018-05-07 11:13 | ASMTCMCOM ---
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 He returns, sans wheelchair and states he cannot walk. Per PLASTER HELPER he has been up but will get an xray. CM met with pt to let him know he has a dc, pt wants another MRI. Waiting for another back brace, CM reserved group home bed but pt does not want to leave, PLASTER HELPER notified. Date Signed: 05/07/2018 11:13 AM Electronically Signed By:Catherine Souza RN
--- NOTE | 2018-05-07 13:55 | SOAPPROG ---
SOAP Progress Note Assessment/Plan: Assessment: 53 yo M known from previous hospital visit with subjective leg weakness/numbness. Plan: neuro: new x-rays of lumbar spine show stable L3 fracture with no retropulsion patient does have hyperreflexia, + hoffmans and sensation changes to pinprick in thoracic spine. Will order MRI of cervical and thoracic spine to evaluate for source of weakness. Recent MRI of Lumbar Spine at [facility] on 04/23/18 did not show any significant stenosis to explain symptoms. continue PT/OT will make follow up recommendations after MRI Soap Grinder to refit brace please call with neuro changes discussed with Dr Mckenzie 05/07/18 13:52 05/07/18 13:54 Subjective: patient has continued falls. States his legs are numb and he can't walk. Patient was able to ambulate to bathroom this am. Objective: Vital Signs Temp Pulse Resp BP Pulse Ox 36.8 C 69 18 110/60 92 05/07/18 12:00 05/07/18 12:00 05/07/18 12:00 05/07/18 12:00 05/07/18 12:00 Laboratory Results 05/06/18 22:15 05/07/18 06:15 05/06/18 05/07/18 05/08/18 05:59 05:59 05:59 Intake Total 220 Balance 220 AAOx4, +FC PERRL, EOMI, no facial droop 5/5 arms 5/5 in legs but very effort dependent + sensation in arms to pinprick ? sensation change at midthoracic spine DTR 3+4/ globally with + hoffmans ICD10 Worksheet Patient Problems: Problems Problem Status Onset History of Boonton's disease Acute Unable to ambulate Acute Alcohol intoxication Acute Alcohol use disorder, severe, in controlled environment Acute Body lice Acute Cellulitis of finger of right hand Acute Diverticulitis of sigmoid colon Acute Drug-seeking behavior Acute Esophageal foreign body Acute Head injury Acute History of alcohol abuse Acute Homelessness Acute Liver nodule Acute Nicotine dependence Acute Occipital scalp laceration Acute Psoriasis Acute Rib fractures Acute Septic arthritis Acute Suicidal ideation Acute Suicide attempt Acute Depression Chronic
[2018-05-07] MEDS ORDERED: ZOLPIDEM TARTRATE 5 MG TAB PO PRN (21:12)
[2018-05-07] MEDS: oxyCODONE IR 5 MG TAB PO PRN (21:21)
[2018-05-07] MEDS: GUAIFENESIN/DM 10 ML UDCUP PO PRN (21:21)
[2018-05-08] MEDS: GUAIFENESIN/DM 10 ML UDCUP PO PRN ×2 (01:42→07:20)
[2018-05-08] MEDS: oxyCODONE IR 5 MG TAB PO PRN ×2 (01:42→07:20)
[2018-05-08] MEDS: NICOTINE 14 MG/24 HR PATCH TD SCH (07:19)
--- NOTE | 2018-05-08 07:32 | SOAPPROG ---
SOAP Progress Note Assessment/Plan: Assessment: 53 yo M known from previous hospital visit with subjective leg weakness/numbness. and subacute L3 burst fracture Plan: neuro: stable and doing well ambulating in room with walker MRI C/T spine w/o stenosis to explain subjective leg weakness. Color Grinder to refit brace, brace to be worn at all times when out of bed PT/OT ok to discharge from NS standpoint, follow up with Dr Mckenzie in 4 weeks with lumbar x-rays, to schedule appointment. please call with neuro changes discussed with Dr Mckenzie 05/07/18 13:52 05/07/18 13:54 05/08/18 07:30 Subjective: continued back pain, legs still feel weak, ambulating in room with walker Objective: Vital Signs Temp Pulse Resp BP Pulse Ox 36.4 C 62 16 104/57 L 91 L 05/07/18 23:27 05/07/18 23:27 05/07/18 23:27 05/07/18 23:27 05/07/18 23:27 Laboratory Results 05/06/18 22:15 05/07/18 06:15 05/07/18 05/08/18 05/09/18 05:59 05:59 05:59 Intake Total 220 Balance 220 AAOx4, +FC PERRL, EOMI 5/5 + light touch ICD10 Worksheet Patient Problems: Problems Problem Status Onset History of Costilla's disease Acute Unable to ambulate Acute Alcohol intoxication Acute Alcohol use disorder, severe, in controlled environment Acute Body lice Acute Cellulitis of finger of right hand Acute Diverticulitis of sigmoid colon Acute Drug-seeking behavior Acute Esophageal foreign body Acute Head injury Acute History of alcohol abuse Acute Homelessness Acute Liver nodule Acute Nicotine dependence Acute Occipital scalp laceration Acute Psoriasis Acute Rib fractures Acute Septic arthritis Acute Suicidal ideation Acute Suicide attempt Acute Depression Chronic
[2018-05-08 07:51] VITALS: BP 129/72
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
--- NOTE | 2018-05-08 11:59 | GDS ---
[f rep st] DISCHARGE SUMMARY DISCHARGE DIAGNOSIS: 1. Lower extremity weakness. 2. Falls. 3. History of Crestone disease. 4. L3 burst fracture. 5. Chronic low back pain. 6. Alcohol dependence in remission. 7. Pneumonia. 8. Hyponatremia. 9. Hyperkalemia. 10. Anemia of chronic disease. 11. History of methicillin-resistant Staphylococcus aureus. HISTORY AND HOSPITAL COURSE: Briefly, this patient presented to the emergency room with weakness. H e was seen and evaluated by Neurosurgery. A thoracic and cervical MRI of the spines was performed as well as lumbar x-ray, nothing acute was noted. Today, he is walking well in the room. He is taking a shower prior to discharge. Recommendation is for him to follow up with Dr. Mckenzie in 4 weeks for r epeat x-rays. Please see MRI report as noted during his stay. HOSPITAL COURSE PER PROBLEM: 1. Lower extremity weakness. He is ambulating very well today. 2. Falls. He has a history of alcohol use, Moose's, and L3 fracture. 3. History of Crestone disease. Supportive care. 4. L3 burst fracture. He was given a brace on his last discharge, and he said it was removed. We h ave given him another one. 5. Chronic low back pain. Recommending Tylenol. 6. Alcohol dependence. He was not intoxicated on this admission. 7. Pneumonia. He finished full treatment. 8. Hyponatremia, mild. 9. Hyperkalemia, stable. 10. Anemia of chronic disease. H and H are stable. 11. History of MRSA, was placed on contact precautions. DISCHARGE CONDITION: Stable. Blood pressure is 129/72, O2 sats on room air 92%, respiratory rate is 18, pulse is 73, temperature is 36.6 Celsius. MEDICATIONS AT DISCHARGE: Please see the EMR. DISCHARGE INSTRUCTIONS: 1. To follow up with Dr. Mckenzie in 4 weeks. 2. If he develops any signs or symptoms of incontinent of urine or stool, to return to the ER. /[id number]/MODL
--- NOTE | 2018-05-08 12:43 | ASMTCMCOM ---
CM Note CM Note Notes: Met with pt, gave bus pass and has reserved bed in long term. DC Plan: [facility] Date Signed: 05/08/2018 12:43 PM Electronically Signed By:Catherine Souza RN
== END 2018-05-08 12:46 | disposition home or self-care (01) ==
LOC: EDUNIT# → F3E 23:01
PROVIDERS: ADMIT Internal Medicine; ATTEND Internal Medicine
DX: R53.1 Weakness (principal); S32.039A Unspecified fracture of third lumbar vertebra, initial encounter for closed fracture; F10.21 Alcohol dependence, in remission; G10 Huntington's disease; M54.5 Low back pain; Z91.81 History of falling; J18.9 Pneumonia, unspecified organism; E87.1 Hypo-osmolality and hyponatremia; E87.5 Hyperkalemia; D63.8 Anemia in other chronic diseases classified elsewhere; W19.XXXA Unspecified fall, initial encounter; Z59.0 Homelessness; Z66 Do not resuscitate
CPT/HCPCS: 72100; 72141; 72146; 99285; G0378

== ENCOUNTER 2018-07-25 09:35 | Observation (INO) | payer MEDICAID, OTHER | END 2018-07-27 09:59 | disposition home or self-care (01) | LOC: F3N 13:45 ==

== ENCOUNTER 2018-08-08 10:59 | Emergency (ER) | payer MEDICAID | END 2018-08-08 15:35 | disposition home or self-care (01) ==

== ENCOUNTER 2018-08-14 14:19 | Inpatient (IN) | payer MEDICAID | END 2018-08-18 13:56 | disposition home or self-care (01) | LOC: F3E 15:23 ==